=== PATIENT | male | born 1945 | race Hispanic/Latino ===

== ENCOUNTER 2021-12-16 18:04 | Inpatient (IN) | payer MEDICARE, OTHER ==
[2021-12-17 01:29] LABS: Basophils % (Auto) 0.5 % (0.0-1.8); Eosinophils # (Auto) 0.3 K/mm3 (0.0-0.4); Eosinophils % (Auto) 3.4 % (0.0-4.3); Hematocrit 38.1 % (35.5-45.6); Hemoglobin 12.5 gm/dl (11.8-15.2); Lymphocytes # (Auto) 1.8 K/mm3 (1.2-5.4); Lymphocytes % (Auto) 20.3 % (13.4-35.0); Mean Corpuscular HGB Conc 33 % (32-34); Mean Corpuscular Volume 92 fl (84-94); Monocytes % (Auto) 11.3 % (0.0-7.3); Platelet Count 277 K/mm3 (140-440); Red Blood Count 4.14 M/mm3 (3.65-5.03); Red Cell Distribution Width 14.4 % (13.2-15.2)
[2021-12-17 01:56] LABS: Hepatitis B Surface Antigen Non-Reactive (Negative); Hepatitis C Virus Antibody Non-Reactive (NonReactive)
[2021-12-17 04:47] LABS: Alanine Aminotransferase 24 units/L (7-56); Albumin 4.3 g/dL (3.9-5); Blood Urea Nitrogen 22 mg/dL (9-20); Calcium 9.8 mg/dL (8.4-10.2); HDL Cholesterol 46 mg/dL (40-59); Hemolysis Index 4; LDL Cholesterol,Direct 53 mg/dL (50-130)
[2021-12-17 04:55] LABS: BUN/Creatinine Ratio 31
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
[2021-12-17] MEDS ORDERED: ACETAMINOPHEN 650 MG PO PRN (11:33)
[2021-12-17] MEDS ORDERED: ALBUTEROL 8.5 GM MDI INHALATION IH PRN (11:33)
[2021-12-17] MEDS ORDERED: NON-FORMULARY EACH (Calcium Carbonate [Calcium] 600 MG Tablet) PO SCH (11:45)
[2021-12-17] MEDS ORDERED: NON-FORMULARY EACH (Budesoni/Formotero 160-4.5(Nf) 10.2 GM Inha) IH SCH (11:45)
[2021-12-17] MEDS ORDERED: TELMISARTAN 80 MG PO SCH (11:45)
[2021-12-17] MEDS ORDERED: NON-FORMULARY EACH (Metformin Hcl [Glucophage] 1,000 MG Tablet) PO SCH (11:45)
[2021-12-17] MEDS ORDERED: FERROUS SULFATE 140 MG PO SCH (11:45)
[2021-12-17] MEDS ORDERED: glipiZIDE 10 MG TAB PO SCH (12:00)
[2021-12-17] MEDS: dilTIAZem CD 120 MG CAP PO SCH (12:37)
[2021-12-17] MEDS: FUROSEMIDE 40 MG TAB PO SCH (12:38)
[2021-12-17] MEDS: FLUoxetine 20 MG CAP PO SCH (12:38)
[2021-12-17] MEDS: glipiZIDE 5 MG TAB PO SCH (12:38)
[2021-12-17] MEDS: METOPROLOL TARTRATE 50 MG TAB PO SCH ×2 (12:38→21:05)
[2021-12-17] MEDS: GABAPENTIN 300 MG CAP PO SCH ×2 (13:49→21:05)
[2021-12-17] MEDS ORDERED: GABAPENTIN 400 MG CAP PO SCH (14:00)
[2021-12-17] MEDS ORDERED: SODIUM POLYSTYRENE 15 GM/60 ML ORAL LIQD PO NR (14:03)
[2021-12-17] MEDS ORDERED: ALBUTEROL 2.5 MG/3 ML NEBU IH PRN (16:00)
[2021-12-17] MEDS ORDERED: IPRATROPIUM 0.02% NEBU 2.5 ML IH SCH (16:00)
[2021-12-17] MEDS: SUCRALFATE 1 GM TAB PO SCH ×2 (16:57→21:05)
[2021-12-17] MEDS: metFORMIN 500 MG TAB PO SCH (16:58)
[2021-12-17] MEDS: RIVAROXABAN 20 MG TAB PO SCH (16:58)
[2021-12-17] MEDS: PANTOPRAZOLE 40 MG TAB PO SCH (16:58)
[2021-12-17] MEDS: CALCIUM CARBONATE 648 MG TAB PO SCH (16:58)
[2021-12-17] MEDS: FERROUS SULFATE 325 MG TAB PO SCH (16:58)
[2021-12-17] MEDS ORDERED: ALBUTEROL 2.5 MG/3 ML NEBU IH SCH (20:00)
[2021-12-17] MEDS ORDERED: LOXAPINE SUCCINATE 10 MG PO SCH (22:00)
[2021-12-18] MEDS: GABAPENTIN 300 MG CAP PO SCH ×3 (05:47→21:20)
[2021-12-18] MEDS: LEVOTHYROXINE 112 MCG TAB PO SCH (05:47)
[2021-12-18] MEDS: LEVOTHYROXINE 25 MCG TAB PO SCH (05:47)
[2021-12-18] MEDS: PANTOPRAZOLE 40 MG TAB PO SCH (09:11)
[2021-12-18] MEDS: FLUoxetine 20 MG CAP PO SCH (09:12)
[2021-12-18] MEDS: glipiZIDE 5 MG TAB PO SCH (09:12)
[2021-12-18] MEDS: CYANOCOBALAMIN (VIT B-12) 1000 MCG TAB PO SCH (09:12)
[2021-12-18] MEDS: METOPROLOL TARTRATE 50 MG TAB PO SCH ×2 (09:12→21:20)
[2021-12-18] MEDS: CETIRIZINE 10 MG TAB PO SCH (09:13)
[2021-12-18] MEDS: CALCIUM CARBONATE 648 MG TAB PO SCH (09:13)
[2021-12-18] MEDS: CHOLECALCIFEROL (VIT D3) 400 UNIT TAB PO SCH (09:13)
[2021-12-18] MEDS: metFORMIN 500 MG TAB PO SCH ×2 (09:13→17:05)
[2021-12-18] MEDS: SUCRALFATE 1 GM TAB PO SCH ×4 (09:13→21:20)
[2021-12-18] MEDS: FUROSEMIDE 40 MG TAB PO SCH (09:13)
[2021-12-18] MEDS: MULTIVITAMINS,THER W-MINERALS TAB PO SCH (09:13)
[2021-12-18] MEDS: FERROUS SULFATE 325 MG TAB PO SCH (09:13)
[2021-12-18] MEDS: dilTIAZem CD 120 MG CAP PO SCH (09:13)
[2021-12-18] MEDS: B COMPLEX W/VITAMIN C TAB PO SCH (09:14)
[2021-12-18] MEDS: TELMISARTAN 80 MG PO SCH (09:14)
[2021-12-18] MEDS: FLUTICASONE PROPIONATE NASAL SPRAY 16 GM NS SCH (09:23)
--- NOTE | 2021-12-18 09:40 | Progress Note ---
Subjective Date of service: 12/18/21 Principal diagnosis: MDD Subjective Comment: Per nurses note: Last evening the patient spent in the activity room smiling and interacting with others. His thoughts are disorganized. His speech is hyperverbal. Patient is intrusive and jumps in to care for other patients or tell staff what they need to be doing. Patient needs constant redirection to care for himself and staff will care for other patients. He denies si/hi/ah/vh. Patient's appetite is good and he is medication compliant. The patient was seen today. He is cooperative. He appears anxious and delusional. He is clenching his fists, and states he has to help people here. He is asking to go home. He denies SI/HI or hallucinations. Staff says the patient has been intrusive, and disorganized thoughts at times. REVIEW OF SYSTEMS Constitutional: Negative for weight loss ENT: Negative for stridor Respiratory: Negative for cough or hemoptysis All other systems reviewed and are negative MENTAL STATUS EXAMINATION General Appearance and Behavior: Age appropriate, good hygiene, wearing appropriate clothes, good eye contact, anxious, cooperative Cooperation: Participating/engaged, but Guarded Psychomotor Behavior: Psychomotor normal Mood: okay Affect and affective range: congruent with stated mood Thought Process: Circumstantial Thought Content: Delusions Speech: normal tone and pace, flight of ideas Suicidal Ideation: Denies Homicidal Ideation: Denies Hallucinations: Denies Delusions: Yes Impulse Control: Limited Insight and Judgment: Poor insight and judgment Memory: Limited Attention: attentive Orientation: Alert, oriented Assessment and Plan Delusional disorder Treatment Plan Patient admitted for inpatient psychiatric evaluation, medication adjustment and close monitoring The patient's behavior, mood, sleep and appetite will be closely monitored. Patient enrolled in individual and group therapeutic sessions and encouraged to attend. Patient provided with a safe and structured environment. Patient's physical health needs will be addressed by the Hospitalist. Hospitalist Consulted Labs including CBC, CMP, Lipid profile and Hemoglobin A1C levels ordered for baseline reference Social Assessment will be completed and the Electrician Telephone will work with patient and family to ensure a suitable and safe disposition Medication adjustment will be made as clinically indicated Start Olanzapine 5mg po daily Usual Wellness Restorationist/Preservation: - Start Trazodone 50 mg po QHS & 50 mg po QHS PRN between 10 PM & 2 AM for insomnia - Start Melatonin 5 mg po QHS to promote circadian rhythm The patient agreed on the treatment plan, understood the risk, benefit, alternative treatment, potential consequence of no treatment, and gave informed consent. Estimated days: 7 Post hospital care: primary care provider, psychiatric provider Case staffed with Dr. Burroughs Medications and Allergies Allergies Allergy/AdvReac Type Severity Reaction Status Date / Time azithromycin Allergy Vomiting Verified 12/16/21 23:57 erythromycin base Allergy Vomiting Verified 12/16/21 23:57 Tetracyclines Allergy Vomiting Verified 12/16/21 23:57 Home Medications Medication Instructions Recorded Confirmed Last Taken Type Acetaminophen [Arthritis Pain 650 mg PO Q6HR PRN 01/23/16 12/16/21 Unknown History Relief] Albuterol Sulfate [Ventolin HFA] 2 puff IH Q6HR PRN 01/23/16 12/16/21 Unknown History Budesoni/Formotero 160-4.5(Nf) 2 puff IH BID 01/23/16 12/16/21 Unknown History [Symbicort 160-4.5 (Nf)] Cholecalciferol (Vitamin D3) 400 unit PO DAILY 01/23/16 12/16/21 Unknown History [Vitamin D-3] FLUoxetine [PROzac] 60 mg PO QDAY 01/23/16 12/16/21 Unknown History Fluticasone [Flonase] 1 spray NS QDAY 01/23/16 12/16/21 Unknown History Gabapentin [Neurontin] 300 mg PO Q8HR 01/23/16 12/16/21 Unknown History Levothyroxine [Synthroid] 25 mcg PO QAM 01/23/16 12/16/21 Unknown History Levothyroxine [Synthroid] 112 mcg PO QAM 01/23/16 12/16/21 Unknown History Metformin HCl [Glucophage] 1,000 mg PO BID 01/23/16 12/16/21 Unknown History Metoprolol Tartrate [Lopressor] 100 mg PO BID 01/23/16 12/16/21 Unknown History Pantoprazole [Protonix] 40 mg PO QDAY 01/23/16 12/16/21 Unknown History glipiZIDE [Glucotrol] 5 mg PO QDAY 01/23/16 12/16/21 Unknown History Calcium Carbonate [Calcium] 600 mg PO DAILY 12/16/21 12/16/21 Unknown History Cetirizine HCl [Allergy] 10 mg PO DAILY 12/16/21 12/16/21 Unknown History Cyanocobalamin [Vitamin B-12] 1,000 mcg PO DAILY 12/16/21 12/16/21 Unknown History Ferrous Sulfate [Slow Release Iron] 134 mg PO DAILY 12/16/21 12/16/21 Unknown History Furosemide [Lasix] 40 mg PO DAILY 12/16/21 12/16/21 Unknown History Ipratropium [Atrovent] 0.5 mg IH Q8HRT 12/16/21 12/16/21 Unknown History Loxapine Succinate [Loxapine] 10 mg PO HS 12/16/21 12/16/21 Unknown History Rivaroxaban [Xarelto] 20 mg PO QDAY 12/16/21 12/16/21 Unknown History Sucralfate [Carafate] 1 gm PO ACHS 12/16/21 12/16/21 Unknown History Telmisartan [Micardis] 80 mg PO DAILY 12/16/21 12/16/21 Unknown History Vit A/Vit C/Vit E/Zinc/Copper 1 each PO DAILY 12/16/21 12/16/21 Unknown History [Preservision Areds Tablet] Vitamin B Complex [Balanced B-50] 1 each PO DAILY 12/16/21 12/16/21 Unknown History dilTIAZem CD [Cardizem Cd] 120 mg PO DAILY 12/16/21 12/16/21 Unknown History Active Meds: Active Medications Acetaminophen (Acetaminophen 325 Mg Tab) 650 mg PO Q6HR PRN PRN Reason: Pain, Moderate (4-6) Albuterol (Albuterol 2.5 Mg/3 Ml Nebu) 2.5 mg IH Q4HRT PRN PRN Reason: Shortness Of Breath Arformoterol Tartrate (Arformoterol 15 Mcg/2 Ml Nebu) 15 mcg IH Q12HRT [facility] Budesonide (Budesonide 0.5 Mg/2 Ml Nebu) 1 mg IH Q12HRT [facility] Calcium Carbonate/Glycine (Calcium Carbonate 648 Mg Tab) 648 mg PO DAILY [facility] Last Admin: 12/18/21 09:13 Dose: 648 mg Cetirizine HCl (Cetirizine 10 Mg Tab) 10 mg PO DAILY [facility] Last Admin: 12/18/21 09:13 Dose: 10 mg Cholecalciferol (Cholecalciferol (Vit D3) 400 Unit Tab) 400 unit PO QDAY [facility] Last Admin: 12/18/21 09:13 Dose: 400 unit Cyanocobalamin (Cyanocobalamin (Vit B-12) 1000 Mcg Tab) 1,000 mcg PO DAILY [facility] Last Admin: 12/18/21 09:12 Dose: 1,000 mcg Diltiazem HCl (Diltiazem Cd 120 Mg Cap) 120 mg PO DAILY [facility] Last Admin: 12/18/21 09:13 Dose: 120 mg Ferrous Sulfate (Ferrous Sulfate 325 Mg Tab) 325 mg PO DAILY [facility] Last Admin: 12/18/21 09:13 Dose: 325 mg Fluoxetine HCl (Fluoxetine 20 Mg Cap) 60 mg PO QDAY [facility] Last Admin: 12/18/21 09:12 Dose: 60 mg Fluticasone Propionate (Fluticasone Propionate Nasal [place] 16 Gm) 50 mcg NS QDAY [facility] Last Admin: 12/18/21 09:23 Dose: 50 mcg Furosemide (Furosemide 40 Mg Tab) 40 mg PO DAILY [facility] Last Admin: 12/18/21 09:13 Dose: 40 mg Gabapentin (Gabapentin 300 Mg Cap) 300 mg PO Q8HR [facility] Last Admin: 12/18/21 05:47 Dose: 300 mg Glipizide (Glipizide 5 Mg Tab) 5 mg PO QDDIAB [facility] Last Admin: 12/18/21 09:12 Dose: 5 mg Levothyroxine Sodium (Levothyroxine 25 Mcg Tab) 25 mcg PO 0600 [facility] Last Admin: 12/18/21 05:47 Dose: 25 mcg Levothyroxine Sodium (Levothyroxine 112 Mcg Tab) 112 mcg PO 0600 [facility] Last Admin: 12/18/21 05:47 Dose: 112 mcg Metformin HCl (Metformin 500 Mg Tab) 1,000 mg PO BIDDIAB [facility] Last Admin: 12/18/21 09:13 Dose: 1,000 mg Metoprolol Tartrate (Metoprolol Tartrate 50 Mg Tab) 100 mg PO BID [facility] Last Admin: 12/18/21 09:12 Dose: 100 mg Miscellaneous Medication (Loxapine Succinate [Loxapine]) 10 mg PO [facility] Miscellaneous Medication (Telmisartan [Micardis]) 80 mg PO DAILY [facility] Last Admin: 12/18/21 09:14 Dose: 80 mg Multivitamins/Minerals (Multivitamins,Ther W-Minerals Tab) 1 each PO QDAY [facility] Last Admin: 12/18/21 09:13 Dose: 1 each Pantoprazole Sodium (Pantoprazole 40 Mg Tab) 40 mg PO QDAY [facility] Last Admin: 12/18/21 09:11 Dose: 40 mg Rivaroxaban (Rivaroxaban 20 Mg Tab) 20 mg PO QPMDIAB [facility]; Protocol Last Admin: 12/17/21 16:58 Dose: 20 mg Sucralfate (Sucralfate 1 Gm Tab) 1 gm PO ACHS [facility] Last Admin: 12/18/21 09:13 Dose: 1 gm Vitamin B Complex/Vitamin C (B Complex W/Vitamin C Tab) 1 each PO QDAY [facility] Last Admin: 12/18/21 09:14 Dose: 1 each Results - Results Labs/Vitals: Laboratory Last Values WBC 8.8 K/mm3 (4.5-11.0) 12/17/21 00:54 RBC 4.14 M/mm3 (3.65-5.03) 12/17/21 00:54 Hgb 12.5 gm/dl (11.8-15.2) 12/17/21 00:54 Hct 38.1 % (35.5-45.6) 12/17/21 00:54 MCV 92 fl (84-94) 12/17/21 00:54 MCH 30 pg (28-32) 12/17/21 00:54 MCHC 33 % (32-34) 12/17/21 00:54 RDW 14.4 % (13.2-15.2) 12/17/21 00:54 Plt Count 277 K/mm3 (140-440) 12/17/21 00:54 Lymph % (Auto) 20.3 % (13.4-35.0) 12/17/21 00:54 [place] % (Auto) 11.3 % (0.0-7.3) H 12/17/21 00:54 Eos % (Auto) 3.4 % (0.0-4.3) 12/17/21 00:54 Baso % (Auto) 0.5 % (0.0-1.8) 12/17/21 00:54 Lymph # (Auto) 1.8 K/mm3 (1.2-5.4) 12/17/21 00:54 [place] # (Auto) 1.0 K/mm3 (0.0-0.8) H 12/17/21 00:54 Eos # (Auto) 0.3 K/mm3 (0.0-0.4) 12/17/21 00:54 Baso # (Auto) 0.0 K/mm3 (0.0-0.1) 12/17/21 00:54 Seg Neutrophils % 64.5 % (40.0-70.0) 12/17/21 00:54 Seg Neutrophils # 5.7 K/mm3 (1.8-7.7) 12/17/21 00:54 Sodium 131 mmol/L (137-145) L 12/17/21 00:54 Potassium 5.3 mmol/L (3.6-5.0) H 12/17/21 00:54 Chloride 97.1 mmol/L (98-107) L 12/17/21 00:54 Carbon Dioxide 19 mmol/L (22-30) L 12/17/21 00:54 Anion Gap 20 mmol/L 12/17/21 00:54 BUN 22 mg/dL (9-20) H 12/17/21 00:54 Creatinine 0.7 mg/dL (0.8-1.3) L 12/17/21 00:54 Estimated GFR > 60 ml/min 12/17/21 00:54 BUN/Creatinine Ratio 31 % 12/17/21 00:54 Glucose 112 mg/dL (75-100) H 12/17/21 00:54 POC Glucose 92 mg/dL (70-105) 12/18/21 05:52 Hemoglobin A1c 6.0 % (4-6) 12/17/21 00:54 Calcium 9.8 mg/dL (8.4-10.2) 12/17/21 00:54 Total Bilirubin 0.40 mg/dL (0.1-1.2) 12/17/21 00:54 AST 19 units/L (5-40) 12/17/21 00:54 ALT 24 units/L (7-56) 12/17/21 00:54 Alkaline Phosphatase 127 units/L (35-129) 12/17/21 00:54 Total Protein 6.8 g/dL (6.3-8.2) 12/17/21 00:54 Albumin 4.3 g/dL (3.9-5) 12/17/21 00:54 Albumin/Globulin Ratio 1.7 % 12/17/21 00:54 Triglycerides 59 mg/dL (2-149) 12/17/21 00:54 Cholesterol 106 mg/dL (50-199) 12/17/21 00:54 LDL Cholesterol Direct 53 mg/dL (50-130) 12/17/21 00:54 HDL Cholesterol 46 mg/dL (40-59) 12/17/21 00:54 Cholesterol/HDL Ratio 2.30 % 12/17/21 00:54 TSH 1.010 mlU/mL (0.270-4.200) 12/17/21 00:54 Hep Bs Antigen Non-reactive (Negative) 12/17/21 00:54 Hep B Core IgM Ab Non-reactive (NonReactive) 12/17/21 00:54 Hepatitis C Antibody Non-reactive (NonReactive) 12/17/21 00:54 Last Vital Signs Temp 97.4 F L 12/18/21 07:42 Pulse 79 12/18/21 09:12 Resp 18 12/18/21 07:42 BP 120/74 12/18/21 09:12 Pulse Ox 99 12/18/21 07:42
[2021-12-18] MEDS ORDERED: COPPER PO SCH (10:00)
[2021-12-18] MEDS ORDERED: VITAMIN A PO SCH (10:00)
[2021-12-18] MEDS ORDERED: LOSARTAN 50 MG TAB PO SCH (10:00)
[2021-12-18] MEDS ORDERED: CHOLECALCIFEROL 2000 UNIT PO SCH (10:00)
[2021-12-18] MEDS ORDERED: VITAMIN E PO SCH (10:00)
[2021-12-18] MEDS ORDERED: NON-FORMULARY EACH (Rivaroxaban 20 MG Tablet) PO SCH (10:00)
[2021-12-18] MEDS ORDERED: [UNRECOGNIZED DRUG - OTHER] PO SCH (10:00)
[2021-12-18] MEDS ORDERED: ZINC PO SCH (10:00)
[2021-12-18] MEDS ORDERED: VITAMIN B COMPLEX PO SCH (10:00)
[2021-12-18] MEDS ORDERED: ASCORBIC ACID PO SCH (10:00)
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
[2021-12-18] MEDS ORDERED: diphenhydrAMINE/ZINC ACET 2% CREAM 28.4 GM TP PRN (11:00)
[2021-12-18] MEDS: BUDESONIDE 0.5 MG/2 ML NEBU IH SCH ×2 (11:05→21:11)
[2021-12-18] MEDS: ARFORMOTEROL 15 MCG/2 ML NEBU IH SCH ×2 (11:05→21:12)
[2021-12-18 14:12] LABS: Hemoglobin 13.5 gm/dl (11.8-15.2); Mean Corpuscular HGB Conc 34 % (32-34); Mean Corpuscular Volume 92 fl (84-94); Platelet Count 344 K/mm3 (140-440); Red Blood Count 4.36 M/mm3 (3.65-5.03); Red Cell Distribution Width 14.9 % (13.2-15.2)
[2021-12-18] MEDS: RIVAROXABAN 20 MG TAB PO SCH (17:03)
[2021-12-18] MEDS: traZODone 50 MG TAB PO SCH (22:32)
[2021-12-19] MEDS: GABAPENTIN 300 MG CAP PO SCH ×3 (05:41→21:22)
[2021-12-19] MEDS: LEVOTHYROXINE 112 MCG TAB PO SCH (05:41)
[2021-12-19] MEDS: LEVOTHYROXINE 25 MCG TAB PO SCH (05:41)
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
[2021-12-19] MEDS: SUCRALFATE 1 GM TAB PO SCH ×4 (08:30→21:26)
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
[2021-12-19] MEDS: PANTOPRAZOLE 40 MG TAB PO SCH (09:58)
[2021-12-19] MEDS: MULTIVITAMINS,THER W-MINERALS TAB PO SCH (09:58)
[2021-12-19] MEDS: CETIRIZINE 10 MG TAB PO SCH (09:58)
[2021-12-19] MEDS: CYANOCOBALAMIN (VIT B-12) 1000 MCG TAB PO SCH (09:58)
[2021-12-19] MEDS: metFORMIN 500 MG TAB PO SCH ×2 (09:58→17:45)
[2021-12-19] MEDS: METOPROLOL TARTRATE 50 MG TAB PO SCH ×2 (10:00→21:22)
[2021-12-19] MEDS: CHOLECALCIFEROL (VIT D3) 400 UNIT TAB PO SCH (11:18)
[2021-12-19] MEDS: B COMPLEX W/VITAMIN C TAB PO SCH (11:19)
[2021-12-19] MEDS: dilTIAZem CD 120 MG CAP PO SCH (11:19)
[2021-12-19] MEDS: CALCIUM CARBONATE 648 MG TAB PO SCH (11:19)
[2021-12-19] MEDS: TELMISARTAN 80 MG PO SCH (11:20)
[2021-12-19] MEDS: FLUTICASONE PROPIONATE NASAL SPRAY 16 GM NS SCH (11:21)
[2021-12-19] MEDS: FERROUS SULFATE 325 MG TAB PO SCH (11:26)
[2021-12-19] MEDS: FLUoxetine 20 MG CAP PO SCH (12:04)
[2021-12-19] MEDS: FUROSEMIDE 40 MG TAB PO SCH (12:04)
[2021-12-19 14:08] LABS: BUN/Creatinine Ratio 26; Blood Urea Nitrogen 23 mg/dL (9-20); Calcium 10.5 mg/dL (8.4-10.2); Hemolysis Index 8
[2021-12-19] MEDS: ARFORMOTEROL 15 MCG/2 ML NEBU IH SCH ×2 (14:40→21:20)
[2021-12-19] MEDS: BUDESONIDE 0.5 MG/2 ML NEBU IH SCH ×3 (14:41→21:23)
[2021-12-19] MEDS: RIVAROXABAN 20 MG TAB PO SCH (17:49)
[2021-12-19] MEDS: MELATONIN 5 MG TAB PO PRN ×2 (21:21→21:27)
[2021-12-19] MEDS: traZODone 50 MG TAB PO SCH (21:22)
[2021-12-20] MEDS: GABAPENTIN 300 MG CAP PO SCH ×3 (06:06→21:24)
[2021-12-20] MEDS: LEVOTHYROXINE 112 MCG TAB PO SCH (06:07)
[2021-12-20] MEDS: LEVOTHYROXINE 25 MCG TAB PO SCH (06:07)
[2021-12-20] MEDS: SUCRALFATE 1 GM TAB PO SCH ×4 (08:00→21:24)
[2021-12-20] MEDS: ARFORMOTEROL 15 MCG/2 ML NEBU IH SCH ×2 (09:15→20:00)
[2021-12-20] MEDS: BUDESONIDE 0.5 MG/2 ML NEBU IH SCH ×2 (09:15→20:00)
--- NOTE | 2021-12-20 09:47 | Progress Note ---
Subjective Date of service: 12/20/21 Principal diagnosis: MDD Subjective Comment: 12/20: The patient was seen today. He is pacing,intrusive and hyperverbal. The patient states he is doing well. " I like to help people." he states sleep and appetite is good. He denies any current suicidal/homicidal ideation and denies hallucinations. 12/19: The patient was seen today. He is calm, cooperative and polite. He says he feels great. He denies SI/HI. The patient says he doesn't feel safe in his room, because other patient's are walking in hallway at night. He denies hallucinations. 12/18 The patient was seen today. He is cooperative. He appears anxious and delusional. He is clenching his fists, and states he has to help people here. He is asking to go home. He denies SI/HI or hallucinations. Staff says the patient has been intrusive, and disorganized thoughts at times. REVIEW OF SYSTEMS Constitutional: Negative for weight loss ENT: Negative for stridor Respiratory: Negative for cough or hemoptysis All other systems reviewed and are negative MENTAL STATUS EXAMINATION General Appearance and Behavior: Age appropriate, good hygiene, wearing appropriate clothes, good eye contact, anxious, cooperative Cooperation: Participating/engaged, but Guarded Psychomotor Behavior: Psychomotor normal Mood:fine Affect and affective range: congruent with stated mood Thought Process: Circumstantial Thought Content: Delusions Speech: normal tone and pace, flight of ideas Suicidal Ideation: Denies Homicidal Ideation: Denies Hallucinations: Denies Delusions: Yes Impulse Control: Limited Insight and Judgment: Poor insight and judgment Memory: Limited Attention: attentive Orientation: Alert, oriented Assessment and Plan Delusional disorder Treatment Plan Patient admitted for inpatient psychiatric evaluation, medication adjustment and close monitoring The patient's behavior, mood, sleep and appetite will be closely monitored. Patient enrolled in individual and group therapeutic sessions and encouraged to attend. Patient provided with a safe and structured environment. Patient's physical health needs will be addressed by the Hospitalist. Hospitalist Consulted Labs including CBC, CMP, Lipid profile and Hemoglobin A1C levels ordered for baseline reference Social Assessment will be completed and the Executive Officer will work with patient and family to ensure a suitable and safe disposition Medication adjustment will be made as clinically indicated Continue Olanzapine 5mg po daily Usual Wellness [employer]/Preservation: - Start Trazodone 50 mg po QHS & 50 mg po QHS PRN between 10 PM & 2 AM for insomnia - Start Melatonin 5 mg po QHS to promote circadian rhythm The patient agreed on the treatment plan, understood the risk, benefit, alternative treatment, potential consequence of no treatment, and gave informed consent. Estimated days: 7 Post hospital care: primary care provider, psychiatric provider Case staffed with Dr. Burroughs Medications and Allergies Medications and Allergies Allergies Allergy/AdvReac Type Severity Reaction Status Date / Time azithromycin Allergy Vomiting Verified 12/16/21 23:57 erythromycin base Allergy Vomiting Verified 12/16/21 23:57 Tetracyclines Allergy Vomiting Verified 12/16/21 23:57 Home Medications Medication Instructions Recorded Confirmed Last Taken Type Acetaminophen [Arthritis Pain 650 mg PO Q6HR PRN 01/23/16 12/16/21 Unknown History Relief] Albuterol Sulfate [Ventolin HFA] 2 puff IH Q6HR PRN 01/23/16 12/16/21 Unknown History Budesoni/Formotero 160-4.5(Nf) 2 puff IH BID 01/23/16 12/16/21 Unknown History [Symbicort 160-4.5 (Nf)] Cholecalciferol (Vitamin D3) 400 unit PO DAILY 01/23/16 12/16/21 Unknown History [Vitamin D-3] FLUoxetine [PROzac] 60 mg PO QDAY 01/23/16 12/16/21 Unknown History Fluticasone [Flonase] 1 spray NS QDAY 01/23/16 12/16/21 Unknown History Gabapentin [Neurontin] 300 mg PO Q8HR 01/23/16 12/16/21 Unknown History Levothyroxine [Synthroid] 25 mcg PO QAM 01/23/16 12/16/21 Unknown History Levothyroxine [Synthroid] 112 mcg PO QAM 01/23/16 12/16/21 Unknown History Metformin HCl [Glucophage] 1,000 mg PO BID 01/23/16 12/16/21 Unknown History Metoprolol Tartrate [Lopressor] 100 mg PO BID 01/23/16 12/16/21 Unknown History Pantoprazole [Protonix] 40 mg PO QDAY 01/23/16 12/16/21 Unknown History glipiZIDE [Glucotrol] 5 mg PO QDAY 01/23/16 12/16/21 Unknown History Calcium Carbonate [Calcium] 600 mg PO DAILY 12/16/21 12/16/21 Unknown History Cetirizine HCl [Allergy] 10 mg PO DAILY 12/16/21 12/16/21 Unknown History Cyanocobalamin [Vitamin B-12] 1,000 mcg PO DAILY 12/16/21 12/16/21 Unknown History Ferrous Sulfate [Slow Release Iron] 134 mg PO DAILY 12/16/21 12/16/21 Unknown History Furosemide [Lasix] 40 mg PO DAILY 12/16/21 12/16/21 Unknown History Ipratropium [Atrovent] 0.5 mg IH Q8HRT 12/16/21 12/16/21 Unknown History Loxapine Succinate [Loxapine] 10 mg PO HS 12/16/21 12/16/21 Unknown History Rivaroxaban [Xarelto] 20 mg PO QDAY 12/16/21 12/16/21 Unknown History Sucralfate [Carafate] 1 gm PO ACHS 12/16/21 12/16/21 Unknown History Telmisartan [Micardis] 80 mg PO DAILY 12/16/21 12/16/21 Unknown History Vit A/Vit C/Vit E/Zinc/Copper 1 each PO DAILY 12/16/21 12/16/21 Unknown History [Preservision Areds Tablet] Vitamin B Complex [Balanced B-50] 1 each PO DAILY 12/16/21 12/16/21 Unknown History dilTIAZem CD [Cardizem Cd] 120 mg PO DAILY 12/16/21 12/16/21 Unknown History Active Meds: Active Medications Acetaminophen (Acetaminophen 325 Mg Tab) 650 mg PO Q6HR PRN PRN Reason: Pain, Moderate (4-6) Albuterol (Albuterol 2.5 Mg/3 Ml Nebu) 2.5 mg IH Q4HRT PRN PRN Reason: Shortness Of Breath Arformoterol Tartrate (Arformoterol 15 Mcg/2 Ml Nebu) 15 mcg IH Q12HRT [facility] Last Admin: 12/19/21 21:20 Dose: 15 mcg Budesonide (Budesonide 0.5 Mg/2 Ml Nebu) 1 mg IH Q12HRT [facility] Last Admin: 12/19/21 21:23 Dose: 1 mg Calcium Carbonate/Glycine (Calcium Carbonate 648 Mg Tab) 648 mg PO DAILY [facility] Last Admin: 12/19/21 11:19 Dose: 648 mg Cetirizine HCl (Cetirizine 10 Mg Tab) 10 mg PO DAILY [facility] Last Admin: 12/19/21 09:58 Dose: 10 mg Cholecalciferol (Cholecalciferol (Vit D3) 400 Unit Tab) 400 unit PO QDAY [facility] Last Admin: 12/19/21 11:18 Dose: 400 unit Cyanocobalamin (Cyanocobalamin (Vit B-12) 1000 Mcg Tab) 1,000 mcg PO DAILY [facility] Last Admin: 12/19/21 09:58 Dose: 1,000 mcg Diltiazem HCl (Diltiazem Cd 120 Mg Cap) 120 mg PO DAILY [facility] Last Admin: 12/19/21 11:19 Dose: 120 mg Ferrous Sulfate (Ferrous Sulfate 325 Mg Tab) 325 mg PO DAILY [facility] Last Admin: 12/19/21 11:26 Dose: 325 mg Fluoxetine HCl (Fluoxetine 20 Mg Cap) 60 mg PO QDAY [facility] Last Admin: 12/19/21 12:04 Dose: 60 mg Fluticasone Propionate (Fluticasone Propionate Nasal [place] 16 Gm) 50 mcg NS QDAY [facility] Last Admin: 12/19/21 11:21 Dose: 50 mcg Furosemide (Furosemide 40 Mg Tab) 40 mg PO DAILY [facility] Last Admin: 12/19/21 12:04 Dose: 40 mg Gabapentin (Gabapentin 300 Mg Cap) 300 mg PO Q8HR [facility] Last Admin: 12/20/21 06:06 Dose: 300 mg Glipizide (Glipizide Xl 2.5 Mg Tab) 2.5 mg PO 0800 [facility] Levothyroxine Sodium (Levothyroxine 25 Mcg Tab) 25 mcg PO 0600 [facility] Last Admin: 12/20/21 06:07 Dose: 25 mcg Levothyroxine Sodium (Levothyroxine 112 Mcg Tab) 112 mcg PO 0600 [facility] Last Admin: 12/20/21 06:07 Dose: 112 mcg Melatonin (Melatonin 5 Mg Tab) 5 mg PO QHS PRN PRN Reason: Sleep Last Admin: 12/19/21 21:27 Dose: 5 mg Metformin HCl (Metformin 500 Mg Tab) 1,000 mg PO BIDDIAB [facility] Last Admin: 12/19/21 17:45 Dose: Not Given Metoprolol Tartrate (Metoprolol Tartrate 50 Mg Tab) 100 mg PO BID [facility] Last Admin: 12/19/21 21:22 Dose: Not Given Miscellaneous Medication (Loxapine Succinate [Loxapine]) 10 mg PO HS [facility] Miscellaneous Medication (Telmisartan [Micardis]) 80 mg PO DAILY [facility] Last Admin: 12/19/21 11:20 Dose: 80 mg Multivitamins/Minerals (Multivitamins,Ther W-Minerals Tab) 1 each PO QDAY [facility] Last Admin: 12/19/21 09:58 Dose: 1 each Olanzapine (Olanzapine 5 Mg Tab) 5 mg PO QDAY [facility] Last Admin: 12/19/21 09:58 Dose: 5 mg Pantoprazole Sodium (Pantoprazole 40 Mg Tab) 40 mg PO QDAY [facility] Last Admin: 12/19/21 09:58 Dose: 40 mg Rivaroxaban (Rivaroxaban 20 Mg Tab) 20 mg PO QPMDIAB [facility]; Protocol Last Admin: 12/19/21 17:49 Dose: 20 mg Sucralfate (Sucralfate 1 Gm Tab) 1 gm PO ACHS [facility] Last Admin: 12/19/21 21:26 Dose: 1 gm Trazodone HCl (Trazodone 50 Mg Tab) 50 mg PO QHS [facility] Last Admin: 12/19/21 21:22 Dose: 50 mg Vitamin B Complex/Vitamin C (B Complex W/Vitamin C Tab) 1 each PO QDAY [facility] Last Admin: 12/19/21 11:19 Dose: 1 each Zinc Acetate/Diphenhydramine (Diphenhydramine/Zinc Acet 2% Cream 28.4 Gm) 1 applic TP Q8H PRN PRN Reason: Itching Results - Results Labs/Vitals: Laboratory Last Values WBC 10.0 K/mm3 (4.5-11.0) 12/18/21 13:37 RBC 4.36 M/mm3 (3.65-5.03) 12/18/21 13:37 Hgb 13.5 gm/dl (11.8-15.2) 12/18/21 13:37 Hct 40.0 % (35.5-45.6) 12/18/21 13:37 MCV 92 fl (84-94) 12/18/21 13:37 MCH 31 pg (28-32) 12/18/21 13:37 MCHC 34 % (32-34) 12/18/21 13:37 RDW 14.9 % (13.2-15.2) 12/18/21 13:37 Plt Count 344 K/mm3 (140-440) 12/18/21 13:37 Lymph % (Auto) 20.3 % (13.4-35.0) 12/17/21 00:54 [place] % (Auto) 11.3 % (0.0-7.3) H 12/17/21 00:54 Eos % (Auto) 3.4 % (0.0-4.3) 12/17/21 00:54 Baso % (Auto) 0.5 % (0.0-1.8) 12/17/21 00:54 Lymph # (Auto) 1.8 K/mm3 (1.2-5.4) 12/17/21 00:54 [place] # (Auto) 1.0 K/mm3 (0.0-0.8) H 12/17/21 00:54 Eos # (Auto) 0.3 K/mm3 (0.0-0.4) 12/17/21 00:54 Baso # (Auto) 0.0 K/mm3 (0.0-0.1) 12/17/21 00:54 Seg Neutrophils % 64.5 % (40.0-70.0) 12/17/21 00:54 Seg Neutrophils # 5.7 K/mm3 (1.8-7.7) 12/17/21 00:54 Sodium 134 mmol/L (137-145) L 12/19/21 13:16 Potassium 5.2 mmol/L (3.6-5.0) H 12/19/21 13:16 Chloride 96.6 mmol/L (98-107) L 12/19/21 13:16 Carbon Dioxide 25 mmol/L (22-30) 12/19/21 13:16 Anion Gap 18 mmol/L 12/19/21 13:16 BUN 23 mg/dL (9-20) H 12/19/21 13:16 Creatinine 0.9 mg/dL (0.8-1.3) 12/19/21 13:16 Estimated GFR > 60 ml/min 12/19/21 13:16 BUN/Creatinine Ratio 26 % 12/19/21 13:16 Glucose 99 mg/dL (75-100) 12/19/21 13:16 POC Glucose 128 mg/dL (70-105) H 12/19/21 19:49 Hemoglobin A1c 6.0 % (4-6) 12/17/21 00:54 Calcium 10.5 mg/dL (8.4-10.2) H 12/19/21 13:16 Total Bilirubin 0.40 mg/dL (0.1-1.2) 12/17/21 00:54 AST 19 units/L (5-40) 12/17/21 00:54 ALT 24 units/L (7-56) 12/17/21 00:54 Alkaline Phosphatase 127 units/L (35-129) 12/17/21 00:54 Total Protein 6.8 g/dL (6.3-8.2) 12/17/21 00:54 Albumin 4.3 g/dL (3.9-5) 12/17/21 00:54 Albumin/Globulin Ratio 1.7 % 12/17/21 00:54 Triglycerides 59 mg/dL (2-149) 12/17/21 00:54 Cholesterol 106 mg/dL (50-199) 12/17/21 00:54 LDL Cholesterol Direct 53 mg/dL (50-130) 12/17/21 00:54 HDL Cholesterol 46 mg/dL (40-59) 12/17/21 00:54 Cholesterol/HDL Ratio 2.30 % 12/17/21 00:54 TSH 1.010 mlU/mL (0.270-4.200) 12/17/21 00:54 Hep Bs Antigen Non-reactive (Negative) 12/17/21 00:54 Hep B Core IgM Ab Non-reactive (NonReactive) 12/17/21 00:54 Hepatitis C Antibody Non-reactive (NonReactive) 12/17/21 00:54 Last Vital Signs Temp 98.5 F 12/19/21 19:53 Pulse 50 L 12/19/21 21:22 Resp 18 12/19/21 21:20 BP 109/59 12/19/21 21:22 Pulse Ox 100 12/19/21 19:53
--- NOTE | 2021-12-20 10:47 | Progress Note ---
Assessment and Plan - Patient Problems (1) Vascular dementia with behavioral disturbance Current Visit: Yes Status: Acute Plan to address problem: Verbal prompting, verbal redirection, benzodiazepine therapy as clinically indicated. Supportive care (2) Cerebral atherosclerosis Current Visit: Yes Status: Acute Plan to address problem: Risk factor reduction, antiplatelet therapy as clinically indicated. (3) Atrial fibrillation Current Visit: Yes Status: Acute Qualifiers: Atrial fibrillation type: longstanding persistent Qualified Code(s): I48.11 - Longstanding persistent atrial fibrillation Plan to address problem: Therapeutic anticoagulation, rate controlled, continue medical management. Out patient cardiology follow-up. (4) ELEAZAR (generalized anxiety disorder) Current Visit: Yes Status: Acute Plan to address problem: Benzodiazepine therapy as clinically indicated, continue current care. (5) MDD (major depressive disorder) Current Visit: Yes Status: Acute Qualifiers: Major depression episode severity: unspecified Plan to address problem: Continue medical management, (6) Hypothyroidism Current Visit: Yes Status: Acute Plan to address problem: Continue Synthroid therapy, supportive care. (7) GERD (gastroesophageal reflux disease) Current Visit: Yes Status: Acute Qualifiers: Esophagitis presence: without esophagitis Qualified Code(s): K21.9 - Gastro-esophageal reflux disease without esophagitis Plan to address problem: PPI therapy, bland diet, supportive care. (8) Diabetes Current Visit: Yes Status: Acute Plan to address problem: Consistent carbohydrate diet, oral antihyperglycemic therapy, continue medical management. (9) Diastolic CHF Current Visit: Yes Status: Acute Qualifiers: Heart failure chronicity: chronic Qualified Code(s): I50.32 - Chronic diastolic (congestive) heart failure Plan to address problem: Strict I's/O, monitor daily weight, continue current management. Outpatient cardiology follow-up. No acute exacerbation at this time. (10) Advance care planning Current Visit: Yes Status: Acute Plan to address problem: Disease education conducted, care plan discussed, diagnoses discussed, prognosis discussed, patient is full code. Patient knowledges understanding and agreement with care plan, +30 minutes. History Interval history: 76 YO Male with Vascular Dementia with Behavioral Disturbance, Cerebral Atherosclerosis, Atrial Fib on therapeutic anticoagulation, CHF, DM, Diastolic CHF, Hypothyroidism, HTN, ELEAZAR, MDD admitted to [facility] for psychiatric stabilization. Consult placed by Dr. Mancilla for medical management. Patient seen and evaluated in the recreation room. No reported nursing events. Patient denies pain. Patient remains at baseline level of cognition and function. Hospitalist Physical - Constitutional Vitals: Temp Pulse Resp BP Pulse Ox 98.5 F 88 18 109/59 100 12/19/21 19:53 12/20/21 09:15 12/20/21 09:15 12/19/21 21:22 12/19/21 19:53 General appearance: Present: no acute distress - EENT Eyes: Present: PERRL ENT: hearing decreased - Neck Neck: Present: supple - Respiratory Respiratory effort: normal Respiratory: bilateral: CTA - Cardiovascular Rhythm: irregularly irregular - Extremities Extremities: no ischemia Peripheral Pulses: within normal limits - Abdominal General gastrointestinal: soft, non-tender, non-distended - Integumentary Integumentary: Present: clear, dry - Psychiatric Psychiatric: cooperative - Neurologic Neurologic: CNII-XII intact Results - Labs CBC & Chem 7: 12/18/21 13:37 12/19/21 13:16 Labs: Laboratory Last Values WBC 10.0 K/mm3 (4.5-11.0) 12/18/21 13:37 RBC 4.36 M/mm3 (3.65-5.03) 12/18/21 13:37 Hgb 13.5 gm/dl (11.8-15.2) 12/18/21 13:37 Hct 40.0 % (35.5-45.6) 12/18/21 13:37 MCV 92 fl (84-94) 12/18/21 13:37 MCH 31 pg (28-32) 12/18/21 13:37 MCHC 34 % (32-34) 12/18/21 13:37 RDW 14.9 % (13.2-15.2) 12/18/21 13:37 Plt Count 344 K/mm3 (140-440) 12/18/21 13:37 Lymph % (Auto) 20.3 % (13.4-35.0) 12/17/21 00:54 [place] % (Auto) 11.3 % (0.0-7.3) H 12/17/21 00:54 Eos % (Auto) 3.4 % (0.0-4.3) 12/17/21 00:54 Baso % (Auto) 0.5 % (0.0-1.8) 12/17/21 00:54 Lymph # (Auto) 1.8 K/mm3 (1.2-5.4) 12/17/21 00:54 [place] # (Auto) 1.0 K/mm3 (0.0-0.8) H 12/17/21 00:54 Eos # (Auto) 0.3 K/mm3 (0.0-0.4) 12/17/21 00:54 Baso # (Auto) 0.0 K/mm3 (0.0-0.1) 12/17/21 00:54 Seg Neutrophils % 64.5 % (40.0-70.0) 12/17/21 00:54 Seg Neutrophils # 5.7 K/mm3 (1.8-7.7) 12/17/21 00:54 Sodium 134 mmol/L (137-145) L 12/19/21 13:16 Potassium 5.2 mmol/L (3.6-5.0) H 12/19/21 13:16 Chloride 96.6 mmol/L (98-107) L 12/19/21 13:16 Carbon Dioxide 25 mmol/L (22-30) 12/19/21 13:16 Anion Gap 18 mmol/L 12/19/21 13:16 BUN 23 mg/dL (9-20) H 12/19/21 13:16 Creatinine 0.9 mg/dL (0.8-1.3) 12/19/21 13:16 Estimated GFR > 60 ml/min 12/19/21 13:16 BUN/Creatinine Ratio 26 % 12/19/21 13:16 Glucose 99 mg/dL (75-100) 12/19/21 13:16 POC Glucose 128 mg/dL (70-105) H 12/19/21 19:49 Hemoglobin A1c 6.0 % (4-6) 12/17/21 00:54 Calcium 10.5 mg/dL (8.4-10.2) H 12/19/21 13:16 Total Bilirubin 0.40 mg/dL (0.1-1.2) 12/17/21 00:54 AST 19 units/L (5-40) 12/17/21 00:54 ALT 24 units/L (7-56) 12/17/21 00:54 Alkaline Phosphatase 127 units/L (35-129) 12/17/21 00:54 Total Protein 6.8 g/dL (6.3-8.2) 12/17/21 00:54 Albumin 4.3 g/dL (3.9-5) 12/17/21 00:54 Albumin/Globulin Ratio 1.7 % 12/17/21 00:54 Triglycerides 59 mg/dL (2-149) 12/17/21 00:54 Cholesterol 106 mg/dL (50-199) 12/17/21 00:54 LDL Cholesterol Direct 53 mg/dL (50-130) 12/17/21 00:54 HDL Cholesterol 46 mg/dL (40-59) 12/17/21 00:54 Cholesterol/HDL Ratio 2.30 % 12/17/21 00:54 TSH 1.010 mlU/mL (0.270-4.200) 12/17/21 00:54 Hep Bs Antigen Non-reactive (Negative) 12/17/21 00:54 Hep B Core IgM Ab Non-reactive (NonReactive) 12/17/21 00:54 Hepatitis C Antibody Non-reactive (NonReactive) 12/17/21 00:54 Haro/IV: Voiding Method Toilet Active Medications - Current Medications Current Medications: Generic Name Dose Route Start Last Admin Trade Name Freq PRN Reason Stop Dose Admin Acetaminophen 650 mg 12/17/21 14:00 Acetaminophen 325 Mg Tab PO Q6HR PRN Pain, Moderate (4-6) Albuterol 2.5 mg 12/17/21 16:00 Albuterol 2.5 Mg/3 Ml Nebu IH Q4HRT PRN Shortness Of Breath Arformoterol Tartrate 15 mcg 12/18/21 08:00 12/20/21 09:15 Arformoterol 15 Mcg/2 Ml Nebu IH 15 mcg Q12HRT JEANNA Administration Budesonide 1 mg 12/18/21 08:00 12/20/21 09:15 Budesonide 0.5 Mg/2 Ml Nebu IH 1 mg Q12HRT JEANNA Administration Calcium Carbonate/Glycine 648 mg 12/17/21 15:00 12/19/21 11:19 Calcium Carbonate 648 Mg Tab PO 648 mg DAILY JEANNA Administration Cetirizine HCl 10 mg 12/18/21 10:00 12/19/21 09:58 Cetirizine 10 Mg Tab PO 10 mg DAILY JEANNA Administration Cholecalciferol 400 unit 12/18/21 10:00 12/19/21 11:18 Cholecalciferol (Vit D3) 400 Unit Tab PO 400 unit QDAY JEANNA Administration Cyanocobalamin 1,000 mcg 12/18/21 10:00 12/19/21 09:58 Cyanocobalamin (Vit B-12) 1000 Mcg Tab PO 1,000 mcg DAILY JEANNA Administration Diltiazem HCl 120 mg 12/17/21 12:00 12/19/21 11:19 Diltiazem Cd 120 Mg Cap PO 120 mg DAILY JEANNA Administration Divalproex Sodium 125 mg 12/20/21 11:[address] 125 Mg Tab PO BID JEANNA Ferrous Sulfate 325 mg 12/17/21 15:00 12/19/21 11:26 Ferrous Sulfate 325 Mg Tab PO 325 mg DAILY JEANNA Administration Fluoxetine HCl 60 mg 12/17/21 12:00 12/19/21 12:04 Fluoxetine 20 Mg Cap PO 60 mg QDAY JEANNA Administration Fluticasone Propionate 50 mcg 12/18/21 10:00 12/19/21 11:21 Fluticasone Propionate Nasal [place] 16 Gm NS 50 mcg QDAY JEANNA Administration Furosemide 40 mg 12/17/21 12:00 12/19/21 12:04 Furosemide 40 Mg Tab PO 40 mg DAILY JEANNA Administration Gabapentin 300 mg 12/17/21 14:00 12/20/21 06:06 Gabapentin 300 Mg Cap PO 300 mg Q8HR JEANNA Administration Glipizide 2.5 mg 12/20/21 08:00 Glipizide Xl 2.5 Mg Tab PO 0800 JEANNA Levothyroxine Sodium 25 mcg 12/18/21 06:00 12/20/21 06:07 Levothyroxine 25 Mcg Tab PO 25 mcg 0600 JEANNA Administration Levothyroxine Sodium 112 mcg 12/18/21 06:00 12/20/21 06:07 Levothyroxine 112 Mcg Tab PO 112 mcg 0600 JEANNA Administration Melatonin 5 mg 12/18/21 22:40 12/19/21 21:27 Melatonin 5 Mg Tab PO 5 mg QHS PRN Administration Sleep Metformin HCl 1,000 mg 12/17/21 17:00 12/19/21 17:45 Metformin 500 Mg Tab PO Not Given BIDDIAB [facility] Metoprolol Tartrate 100 mg 12/17/21 12:00 12/19/21 21:22 Metoprolol Tartrate 50 Mg Tab PO Not Given BID JEANNA Miscellaneous Medication 10 mg 12/17/21 22:00 Loxapine Succinate [Loxapine] PO HS JEANNA Miscellaneous Medication 80 mg 12/18/21 10:00 12/19/21 11:20 Telmisartan [Micardis] PO 80 mg DAILY JEANNA Administration Multivitamins/Minerals 1 each 12/18/21 10:00 12/19/21 09:58 Multivitamins,Ther W-Minerals Tab PO 1 each QDAY JEANNA Administration Olanzapine 5 mg 12/18/21 11:00 12/19/21 09:58 Olanzapine 5 Mg Tab PO 5 mg QDAY JEANNA Administration Pantoprazole Sodium 40 mg 12/17/21 16:00 12/19/21 09:58 Pantoprazole 40 Mg Tab PO 40 mg QDAY JEANNA Administration Rivaroxaban 20 mg 12/17/21 17:00 12/19/21 17:49 Rivaroxaban 20 Mg Tab PO 20 mg QPMDIAB JEANNA Administration Protocol Sucralfate 1 gm 12/17/21 16:30 12/19/21 21:26 Sucralfate 1 Gm Tab PO 1 gm ACHS JEANNA Administration Trazodone HCl 50 mg 12/18/21 22:30 12/19/21 21:22 Trazodone 50 Mg Tab PO 50 mg QHS JEANNA Administration Vitamin B Complex/Vitamin C 1 each 12/18/21 10:00 12/19/21 11:19 B Complex W/Vitamin C Tab PO 1 each QDAY JEANNA Administration Zinc Acetate/Diphenhydramine 1 applic 12/18/21 11:00 Diphenhydramine/Zinc Acet 2% Cream 28.4 Gm TP Q8H PRN Itching
[2021-12-20] MEDS: CETIRIZINE 10 MG TAB PO SCH (12:37)
[2021-12-20] MEDS: PANTOPRAZOLE 40 MG TAB PO SCH (12:37)
[2021-12-20] MEDS: CYANOCOBALAMIN (VIT B-12) 1000 MCG TAB PO SCH (12:38)
[2021-12-20] MEDS: FERROUS SULFATE 325 MG TAB PO SCH (12:38)
[2021-12-20] MEDS: FLUoxetine 20 MG CAP PO SCH (12:38)
[2021-12-20] MEDS: B COMPLEX W/VITAMIN C TAB PO SCH (12:39)
[2021-12-20] MEDS: FUROSEMIDE 40 MG TAB PO SCH (12:39)
[2021-12-20] MEDS: CALCIUM CARBONATE 648 MG TAB PO SCH (12:39)
[2021-12-20] MEDS: CHOLECALCIFEROL (VIT D3) 400 UNIT TAB PO SCH (12:39)
[2021-12-20] MEDS: TELMISARTAN 80 MG PO SCH (12:40)
[2021-12-20] MEDS: FLUTICASONE PROPIONATE NASAL SPRAY 16 GM NS SCH (12:40)
[2021-12-20] MEDS: dilTIAZem CD 120 MG CAP PO SCH (12:41)
[2021-12-20] MEDS: metFORMIN 500 MG TAB PO SCH ×2 (12:45→16:40)
[2021-12-20] MEDS: METOPROLOL TARTRATE 50 MG TAB PO SCH ×2 (12:46→21:26)
[2021-12-20] MEDS: MULTIVITAMINS,THER W-MINERALS TAB PO SCH (12:52)
[2021-12-20] MEDS: DIVALPROEX DR 125 MG TAB PO SCH ×2 (13:18→21:24)
[2021-12-20] MEDS: RIVAROXABAN 20 MG TAB PO SCH (19:00)
[2021-12-20] MEDS: MELATONIN 5 MG TAB PO PRN (20:44)
[2021-12-20] MEDS: traZODone 50 MG TAB PO SCH (21:24)
[2021-12-21] MEDS: LEVOTHYROXINE 25 MCG TAB PO SCH (05:45)
[2021-12-21] MEDS: LEVOTHYROXINE 112 MCG TAB PO SCH (05:45)
[2021-12-21] MEDS: GABAPENTIN 300 MG CAP PO SCH ×3 (05:45→21:15)
[2021-12-21] MEDS: BUDESONIDE 0.5 MG/2 ML NEBU IH SCH ×2 (07:39→20:14)
[2021-12-21] MEDS: ARFORMOTEROL 15 MCG/2 ML NEBU IH SCH ×2 (07:39→20:14)
[2021-12-21] MEDS: PANTOPRAZOLE 40 MG TAB PO SCH (09:02)
[2021-12-21] MEDS: CYANOCOBALAMIN (VIT B-12) 1000 MCG TAB PO SCH (09:02)
[2021-12-21] MEDS: B COMPLEX W/VITAMIN C TAB PO SCH (09:02)
[2021-12-21] MEDS: CALCIUM CARBONATE 648 MG TAB PO SCH (09:02)
[2021-12-21] MEDS: MULTIVITAMINS,THER W-MINERALS TAB PO SCH (09:02)
[2021-12-21] MEDS: FLUoxetine 20 MG CAP PO SCH (09:02)
[2021-12-21] MEDS: FUROSEMIDE 40 MG TAB PO SCH (09:03)
[2021-12-21] MEDS: SUCRALFATE 1 GM TAB PO SCH ×4 (09:03→21:15)
[2021-12-21] MEDS: DIVALPROEX DR 125 MG TAB PO SCH (09:03)
[2021-12-21] MEDS: CHOLECALCIFEROL (VIT D3) 400 UNIT TAB PO SCH (09:03)
[2021-12-21] MEDS: CETIRIZINE 10 MG TAB PO SCH (09:03)
[2021-12-21] MEDS: FERROUS SULFATE 325 MG TAB PO SCH (09:03)
[2021-12-21] MEDS: metFORMIN 500 MG TAB PO SCH ×2 (09:04→16:56)
[2021-12-21] MEDS: METOPROLOL TARTRATE 50 MG TAB PO SCH ×2 (09:04→21:16)
[2021-12-21] MEDS: FLUTICASONE PROPIONATE NASAL SPRAY 16 GM NS SCH (09:05)
[2021-12-21] MEDS: dilTIAZem CD 120 MG CAP PO SCH (09:05)
[2021-12-21] MEDS: TELMISARTAN 80 MG PO SCH (09:05)
--- NOTE | 2021-12-21 09:10 | Progress Note ---
Subjective Date of service: 12/21/21 Principal diagnosis: MDD Subjective Comment: 12/21: The patient was seen today. he continues to be talkative and grandiose. He denies being depressed. The patient denies any current suicidal/homicidal ideation and denies hallucinations. Increased Depakote DR to 250mg po BID 12/20: The patient was seen today. He is pacing,intrusive and hyperverbal. The patient states he is doing well. " I like to help people." he states sleep and appetite is good. He denies any current suicidal/homicidal ideation and denies hallucinations. 12/19: The patient was seen today. He is calm, cooperative and polite. He says he feels great. He denies SI/HI. The patient says he doesn't feel safe in his room, because other patient's are walking in hallway at night. He denies hallucinations. 12/18 The patient was seen today. He is cooperative. He appears anxious and delusional. He is clenching his fists, and states he has to help people here. He is asking to go home. He denies SI/HI or hallucinations. Staff says the patient has been intrusive, and disorganized thoughts at times. REVIEW OF SYSTEMS Constitutional: Negative for weight loss ENT: Negative for stridor Respiratory: Negative for cough or hemoptysis All other systems reviewed and are negative MENTAL STATUS EXAMINATION General Appearance and Behavior: Age appropriate, good hygiene, wearing appropriate clothes, good eye contact, anxious, cooperative Cooperation: Participating/engaged, but Guarded Psychomotor Behavior: Psychomotor normal Mood:fine Affect and affective range: congruent with stated mood Thought Process: Circumstantial,grandiose Thought Content: Delusions Speech: normal tone and pace, flight of ideas, Suicidal Ideation: Denies Homicidal Ideation: Denies Hallucinations: Denies Delusions: Yes Impulse Control: Limited Insight and Judgment: Poor insight and judgment Memory: Limited Attention: attentive Orientation: Alert, oriented Assessment and Plan Delusional disorder Treatment Plan Patient admitted for inpatient psychiatric evaluation, medication adjustment and close monitoring The patient's behavior, mood, sleep and appetite will be closely monitored. Patient enrolled in individual and group therapeutic sessions and encouraged to attend. Patient provided with a safe and structured environment. Patient's physical health needs will be addressed by the Hospitalist. Hospitalist Consulted Labs including CBC, CMP, Lipid profile and Hemoglobin A1C levels ordered for baseline reference Social Assessment will be completed and the Human Resources Representative will work with patient and family to ensure a suitable and safe disposition Medication adjustment will be made as clinically indicated Continue Olanzapine 5mg po daily Usual Wellness Hoahaoism/Preservation: - Start Trazodone 50 mg po QHS & 50 mg po QHS PRN between 10 PM & 2 AM for insomnia - Start Melatonin 5 mg po QHS to promote circadian rhythm The patient agreed on the treatment plan, understood the risk, benefit, alternative treatment, potential consequence of no treatment, and gave informed consent. Estimated days: 7 Post hospital care: primary care provider, psychiatric provider Case staffed with Dr. Burroughs Medications and Allergies Medications and Allergies Allergies Allergy/AdvReac Type Severity Reaction Status Date / Time azithromycin Allergy Vomiting Verified 12/16/21 23:57 erythromycin base Allergy Vomiting Verified 12/16/21 23:57 Tetracyclines Allergy Vomiting Verified 12/16/21 23:57 Home Medications Medication Instructions Recorded Confirmed Last Taken Type Acetaminophen [Arthritis Pain 650 mg PO Q6HR PRN 01/23/16 12/16/21 Unknown History Relief] Albuterol Sulfate [Ventolin HFA] 2 puff IH Q6HR PRN 01/23/16 12/16/21 Unknown History Budesoni/Formotero 160-4.5(Nf) 2 puff IH BID 01/23/16 12/16/21 Unknown History [Symbicort 160-4.5 (Nf)] Cholecalciferol (Vitamin D3) 400 unit PO DAILY 01/23/16 12/16/21 Unknown History [Vitamin D-3] FLUoxetine [PROzac] 60 mg PO QDAY 01/23/16 12/16/21 Unknown History Fluticasone [Flonase] 1 spray NS QDAY 01/23/16 12/16/21 Unknown History Gabapentin [Neurontin] 300 mg PO Q8HR 01/23/16 12/16/21 Unknown History Levothyroxine [Synthroid] 25 mcg PO QAM 01/23/16 12/16/21 Unknown History Levothyroxine [Synthroid] 112 mcg PO QAM 01/23/16 12/16/21 Unknown History Metformin HCl [Glucophage] 1,000 mg PO BID 01/23/16 12/16/21 Unknown History Metoprolol Tartrate [Lopressor] 100 mg PO BID 01/23/16 12/16/21 Unknown History Pantoprazole [Protonix] 40 mg PO QDAY 01/23/16 12/16/21 Unknown History glipiZIDE [Glucotrol] 5 mg PO QDAY 01/23/16 12/16/21 Unknown History Calcium Carbonate [Calcium] 600 mg PO DAILY 12/16/21 12/16/21 Unknown History Cetirizine HCl [Allergy] 10 mg PO DAILY 12/16/21 12/16/21 Unknown History Cyanocobalamin [Vitamin B-12] 1,000 mcg PO DAILY 12/16/21 12/16/21 Unknown History Ferrous Sulfate [Slow Release Iron] 134 mg PO DAILY 12/16/21 12/16/21 Unknown History Furosemide [Lasix] 40 mg PO DAILY 12/16/21 12/16/21 Unknown History Ipratropium [Atrovent] 0.5 mg IH Q8HRT 12/16/21 12/16/21 Unknown History Loxapine Succinate [Loxapine] 10 mg PO HS 12/16/21 12/16/21 Unknown History Rivaroxaban [Xarelto] 20 mg PO QDAY 12/16/21 12/16/21 Unknown History Sucralfate [Carafate] 1 gm PO ACHS 12/16/21 12/16/21 Unknown History Telmisartan [Micardis] 80 mg PO DAILY 12/16/21 12/16/21 Unknown History Vit A/Vit C/Vit E/Zinc/Copper 1 each PO DAILY 12/16/21 12/16/21 Unknown History [Preservision Areds Tablet] Vitamin B Complex [Balanced B-50] 1 each PO DAILY 12/16/21 12/16/21 Unknown History dilTIAZem CD [Cardizem Cd] 120 mg PO DAILY 12/16/21 12/16/21 Unknown History Active Meds: Active Medications Acetaminophen (Acetaminophen 325 Mg Tab) 650 mg PO Q6HR PRN PRN Reason: Pain, Moderate (4-6) Albuterol (Albuterol 2.5 Mg/3 Ml Nebu) 2.5 mg IH Q4HRT PRN PRN Reason: Shortness Of Breath Arformoterol Tartrate (Arformoterol 15 Mcg/2 Ml Nebu) 15 mcg IH Q12HRT JEANNA Last Admin: 12/21/21 07:39 Dose: Not Given Budesonide (Budesonide 0.5 Mg/2 Ml Nebu) 1 mg IH Q12HRT [facility] Last Admin: 12/21/21 07:39 Dose: 1 mg Calcium Carbonate/Glycine (Calcium Carbonate 648 Mg Tab) 648 mg PO DAILY [facility] Last Admin: 12/20/21 12:39 Dose: 648 mg Cetirizine HCl (Cetirizine 10 Mg Tab) 10 mg PO DAILY [facility] Last Admin: 12/20/21 12:37 Dose: 10 mg Cholecalciferol (Cholecalciferol (Vit D3) 400 Unit Tab) 400 unit PO QDAY [facility] Last Admin: 12/20/21 12:39 Dose: 400 unit Cyanocobalamin (Cyanocobalamin (Vit B-12) 1000 Mcg Tab) 1,000 mcg PO DAILY [facility] Last Admin: 12/20/21 12:38 Dose: 1,000 mcg Diltiazem HCl (Diltiazem Cd 120 Mg Cap) 120 mg PO DAILY [facility] Last Admin: 12/20/21 12:41 Dose: Not Given Divalproex Sodium (Divalproex Dr 125 Mg Tab) 125 mg PO BID [facility] Last Admin: 12/20/21 21:24 Dose: 125 mg Ferrous Sulfate (Ferrous Sulfate 325 Mg Tab) 325 mg PO DAILY [facility] Last Admin: 12/20/21 12:38 Dose: 325 mg Fluoxetine HCl (Fluoxetine 20 Mg Cap) 60 mg PO QDAY [facility] Last Admin: 12/20/21 12:38 Dose: 60 mg Fluticasone Propionate (Fluticasone Propionate Nasal [place] 16 Gm) 50 mcg NS QDAY [facility] Last Admin: 12/20/21 12:40 Dose: 50 mcg Furosemide (Furosemide 40 Mg Tab) 40 mg PO DAILY [facility] Last Admin: 12/20/21 12:39 Dose: 40 mg Gabapentin (Gabapentin 300 Mg Cap) 300 mg PO Q8HR [facility] Last Admin: 12/21/21 05:45 Dose: 300 mg Glipizide (Glipizide Xl 2.5 Mg Tab) 2.5 mg PO 0800 [facility] Last Admin: 12/20/21 12:44 Dose: Not Given Levothyroxine Sodium (Levothyroxine 25 Mcg Tab) 25 mcg PO 0600 [facility] Last Admin: 12/21/21 05:45 Dose: 25 mcg Levothyroxine Sodium (Levothyroxine 112 Mcg Tab) 112 mcg PO 0600 [facility] Last Admin: 12/21/21 05:45 Dose: 112 mcg Melatonin (Melatonin 5 Mg Tab) 5 mg PO QHS PRN PRN Reason: Sleep Last Admin: 12/20/21 20:44 Dose: 5 mg Metformin HCl (Metformin 500 Mg Tab) 1,000 mg PO BIDDIAB [facility] Last Admin: 12/20/21 16:40 Dose: Not Given Metoprolol Tartrate (Metoprolol Tartrate 50 Mg Tab) 100 mg PO BID [facility] Last Admin: 12/20/21 21:26 Dose: Not Given Miscellaneous Medication (Loxapine Succinate [Loxapine]) 10 mg PO [facility] Miscellaneous Medication (Telmisartan [Micardis]) 80 mg PO DAILY [facility] Last Admin: 12/20/21 12:40 Dose: 80 mg Multivitamins/Minerals (Multivitamins,Ther W-Minerals Tab) 1 each PO QDAY [facility] Last Admin: 12/20/21 12:52 Dose: 1 each Olanzapine (Olanzapine 5 Mg Tab) 5 mg PO QDAY [facility] Last Admin: 12/20/21 12:37 Dose: 5 mg Pantoprazole Sodium (Pantoprazole 40 Mg Tab) 40 mg PO QDAY [facility] Last Admin: 12/20/21 12:37 Dose: 40 mg Rivaroxaban (Rivaroxaban 20 Mg Tab) 20 mg PO QPMDIAB [facility]; Protocol Last Admin: 12/20/21 19:00 Dose: 20 mg Sucralfate (Sucralfate 1 Gm Tab) 1 gm PO [facility] Last Admin: 12/20/21 21:24 Dose: 1 gm Trazodone HCl (Trazodone 50 Mg Tab) 50 mg PO QHS [facility] Last Admin: 12/20/21 21:24 Dose: 50 mg Vitamin B Complex/Vitamin C (B Complex W/Vitamin C Tab) 1 each PO QDAY [facility] Last Admin: 12/20/21 12:39 Dose: 1 each Zinc Acetate/Diphenhydramine (Diphenhydramine/Zinc Acet 2% Cream 28.4 Gm) 1 applic TP Q8H PRN PRN Reason: Itching Results - Results Labs/Vitals: Laboratory Last Values WBC 10.0 K/mm3 (4.5-11.0) 12/18/21 13:37 RBC 4.36 M/mm3 (3.65-5.03) 12/18/21 13:37 Hgb 13.5 gm/dl (11.8-15.2) 12/18/21 13:37 Hct 40.0 % (35.5-45.6) 12/18/21 13:37 MCV 92 fl (84-94) 12/18/21 13:37 MCH 31 pg (28-32) 12/18/21 13:37 MCHC 34 % (32-34) 12/18/21 13:37 RDW 14.9 % (13.2-15.2) 12/18/21 13:37 Plt Count 344 K/mm3 (140-440) 12/18/21 13:37 Lymph % (Auto) 20.3 % (13.4-35.0) 12/17/21 00:54 [place] % (Auto) 11.3 % (0.0-7.3) H 12/17/21 00:54 Eos % (Auto) 3.4 % (0.0-4.3) 12/17/21 00:54 Baso % (Auto) 0.5 % (0.0-1.8) 12/17/21 00:54 Lymph # (Auto) 1.8 K/mm3 (1.2-5.4) 12/17/21 00:54 [place] # (Auto) 1.0 K/mm3 (0.0-0.8) H 12/17/21 00:54 Eos # (Auto) 0.3 K/mm3 (0.0-0.4) 12/17/21 00:54 Baso # (Auto) 0.0 K/mm3 (0.0-0.1) 12/17/21 00:54 Seg Neutrophils % 64.5 % (40.0-70.0) 12/17/21 00:54 Seg Neutrophils # 5.7 K/mm3 (1.8-7.7) 12/17/21 00:54 Sodium 134 mmol/L (137-145) L 12/19/21 13:16 Potassium 5.2 mmol/L (3.6-5.0) H 12/19/21 13:16 Chloride 96.6 mmol/L (98-107) L 12/19/21 13:16 Carbon Dioxide 25 mmol/L (22-30) 12/19/21 13:16 Anion Gap 18 mmol/L 12/19/21 13:16 BUN 23 mg/dL (9-20) H 12/19/21 13:16 Creatinine 0.9 mg/dL (0.8-1.3) 12/19/21 13:16 Estimated GFR > 60 ml/min 12/19/21 13:16 BUN/Creatinine Ratio 26 % 12/19/21 13:16 Glucose 99 mg/dL (75-100) 12/19/21 13:16 POC Glucose 128 mg/dL (70-105) H 12/20/21 19:57 Hemoglobin A1c 6.0 % (4-6) 12/17/21 00:54 Calcium 10.5 mg/dL (8.4-10.2) H 12/19/21 13:16 Total Bilirubin 0.40 mg/dL (0.1-1.2) 12/17/21 00:54 AST 19 units/L (5-40) 12/17/21 00:54 ALT 24 units/L (7-56) 12/17/21 00:54 Alkaline Phosphatase 127 units/L (35-129) 12/17/21 00:54 Total Protein 6.8 g/dL (6.3-8.2) 12/17/21 00:54 Albumin 4.3 g/dL (3.9-5) 12/17/21 00:54 Albumin/Globulin Ratio 1.7 % 12/17/21 00:54 Triglycerides 59 mg/dL (2-149) 12/17/21 00:54 Cholesterol 106 mg/dL (50-199) 12/17/21 00:54 LDL Cholesterol Direct 53 mg/dL (50-130) 12/17/21 00:54 HDL Cholesterol 46 mg/dL (40-59) 12/17/21 00:54 Cholesterol/HDL Ratio 2.30 % 12/17/21 00:54 TSH 1.010 mlU/mL (0.270-4.200) 12/17/21 00:54 Hep Bs Antigen Non-reactive (Negative) 12/17/21 00:54 Hep B Core IgM Ab Non-reactive (NonReactive) 12/17/21 00:54 Hepatitis C Antibody Non-reactive (NonReactive) 12/17/21 00:54 Last Vital Signs Temp 97.9 F 12/21/21 06:57 Pulse 78 12/21/21 06:57 Resp 18 12/21/21 07:39 BP 141/72 12/21/21 06:57 Pulse Ox 96 12/21/21 07:39
--- NOTE | 2021-12-21 11:37 | Progress Note ---
Assessment and Plan - Patient Problems (1) Vascular dementia with behavioral disturbance Current Visit: Yes Status: Acute Plan to address problem: Verbal prompting, verbal redirection, benzodiazepine therapy as clinically indicated. Supportive care (2) Cerebral atherosclerosis Current Visit: Yes Status: Acute Plan to address problem: Risk factor reduction, antiplatelet therapy as clinically indicated. (3) Atrial fibrillation Current Visit: Yes Status: Acute Qualifiers: Atrial fibrillation type: longstanding persistent Qualified Code(s): I48.11 - Longstanding persistent atrial fibrillation Plan to address problem: Therapeutic anticoagulation, rate controlled, continue medical management. Out patient cardiology follow-up. (4) ELEAZAR (generalized anxiety disorder) Current Visit: Yes Status: Acute Plan to address problem: Benzodiazepine therapy as clinically indicated, continue current care. (5) MDD (major depressive disorder) Current Visit: Yes Status: Acute Qualifiers: Major depression episode severity: unspecified Plan to address problem: Continue medical management, (6) Hypothyroidism Current Visit: Yes Status: Acute Plan to address problem: Continue Synthroid therapy, supportive care. (7) GERD (gastroesophageal reflux disease) Current Visit: Yes Status: Acute Qualifiers: Esophagitis presence: without esophagitis Qualified Code(s): K21.9 - Gastro-esophageal reflux disease without esophagitis Plan to address problem: PPI therapy, bland diet, supportive care. (8) Diabetes Current Visit: Yes Status: Acute Plan to address problem: Consistent carbohydrate diet, oral antihyperglycemic therapy, continue medical management. (9) Diastolic CHF Current Visit: Yes Status: Acute Qualifiers: Heart failure chronicity: chronic Qualified Code(s): I50.32 - Chronic diastolic (congestive) heart failure Plan to address problem: Strict I's/O, monitor daily weight, continue current management. Outpatient cardiology follow-up. No acute exacerbation at this time. (10) Advance care planning Current Visit: Yes Status: Acute Plan to address problem: Disease education conducted, care plan discussed, diagnoses discussed, prognosis discussed, patient is full code. Patient knowledges understanding and agreement with care plan, +30 minutes. History Interval history: 76 YO Male with Vascular Dementia with Behavioral Disturbance, Cerebral Atherosclerosis, Atrial Fib on therapeutic anticoagulation, CHF, DM, Diastolic CHF, Hypothyroidism, HTN, ELEAZAR, MDD admitted to [facility] for psychiatric stabilization. Consult placed by Dr. Mancilla for medical management. Patient seen and evaluated in the recreation room. No reported nursing events. Patient denies pain. Patient remains at baseline level of cognition and function. Hospitalist Physical - Constitutional Vitals: Temp Pulse Resp BP Pulse Ox 97.9 F 78 18 141/72 96 12/21/21 06:57 12/21/21 09:05 12/21/21 07:39 12/21/21 09:05 12/21/21 07:39 General appearance: Present: no acute distress - EENT Eyes: Present: PERRL ENT: hearing decreased - Neck Neck: Present: supple - Respiratory Respiratory effort: normal Respiratory: bilateral: diminished - Cardiovascular Rhythm: irregularly irregular - Extremities Extremities: no ischemia Peripheral Pulses: within normal limits - Abdominal General gastrointestinal: soft, non-tender, non-distended - Integumentary Integumentary: Present: clear, dry - Psychiatric Psychiatric: cooperative - Neurologic Neurologic: CNII-XII intact Results - Labs CBC & Chem 7: 12/18/21 13:37 12/19/21 13:16 Labs: Laboratory Last Values WBC 10.0 K/mm3 (4.5-11.0) 12/18/21 13:37 RBC 4.36 M/mm3 (3.65-5.03) 12/18/21 13:37 Hgb 13.5 gm/dl (11.8-15.2) 12/18/21 13:37 Hct 40.0 % (35.5-45.6) 12/18/21 13:37 MCV 92 fl (84-94) 12/18/21 13:37 MCH 31 pg (28-32) 12/18/21 13:37 MCHC 34 % (32-34) 12/18/21 13:37 RDW 14.9 % (13.2-15.2) 12/18/21 13:37 Plt Count 344 K/mm3 (140-440) 12/18/21 13:37 Lymph % (Auto) 20.3 % (13.4-35.0) 12/17/21 00:54 [place] % (Auto) 11.3 % (0.0-7.3) H 12/17/21 00:54 Eos % (Auto) 3.4 % (0.0-4.3) 12/17/21 00:54 Baso % (Auto) 0.5 % (0.0-1.8) 12/17/21 00:54 Lymph # (Auto) 1.8 K/mm3 (1.2-5.4) 12/17/21 00:54 [place] # (Auto) 1.0 K/mm3 (0.0-0.8) H 12/17/21 00:54 Eos # (Auto) 0.3 K/mm3 (0.0-0.4) 12/17/21 00:54 Baso # (Auto) 0.0 K/mm3 (0.0-0.1) 12/17/21 00:54 Seg Neutrophils % 64.5 % (40.0-70.0) 12/17/21 00:54 Seg Neutrophils # 5.7 K/mm3 (1.8-7.7) 12/17/21 00:54 Sodium 134 mmol/L (137-145) L 12/19/21 13:16 Potassium 5.2 mmol/L (3.6-5.0) H 12/19/21 13:16 Chloride 96.6 mmol/L (98-107) L 12/19/21 13:16 Carbon Dioxide 25 mmol/L (22-30) 12/19/21 13:16 Anion Gap 18 mmol/L 12/19/21 13:16 BUN 23 mg/dL (9-20) H 12/19/21 13:16 Creatinine 0.9 mg/dL (0.8-1.3) 12/19/21 13:16 Estimated GFR > 60 ml/min 12/19/21 13:16 BUN/Creatinine Ratio 26 % 12/19/21 13:16 Glucose 99 mg/dL (75-100) 12/19/21 13:16 POC Glucose 128 mg/dL (70-105) H 12/20/21 19:57 Hemoglobin A1c 6.0 % (4-6) 12/17/21 00:54 Calcium 10.5 mg/dL (8.4-10.2) H 12/19/21 13:16 Total Bilirubin 0.40 mg/dL (0.1-1.2) 12/17/21 00:54 AST 19 units/L (5-40) 12/17/21 00:54 ALT 24 units/L (7-56) 12/17/21 00:54 Alkaline Phosphatase 127 units/L (35-129) 12/17/21 00:54 Total Protein 6.8 g/dL (6.3-8.2) 12/17/21 00:54 Albumin 4.3 g/dL (3.9-5) 12/17/21 00:54 Albumin/Globulin Ratio 1.7 % 12/17/21 00:54 Triglycerides 59 mg/dL (2-149) 12/17/21 00:54 Cholesterol 106 mg/dL (50-199) 12/17/21 00:54 LDL Cholesterol Direct 53 mg/dL (50-130) 12/17/21 00:54 HDL Cholesterol 46 mg/dL (40-59) 12/17/21 00:54 Cholesterol/HDL Ratio 2.30 % 12/17/21 00:54 TSH 1.010 mlU/mL (0.270-4.200) 12/17/21 00:54 Hep Bs Antigen Non-reactive (Negative) 12/17/21 00:54 Hep B Core IgM Ab Non-reactive (NonReactive) 12/17/21 00:54 Hepatitis C Antibody Non-reactive (NonReactive) 12/17/21 00:54 [place]/IV: Voiding Method Toilet Active Medications - Current Medications Current Medications: Generic Name Dose Route Start Last Admin Trade Name Freq PRN Reason Stop Dose Admin Acetaminophen 650 mg 12/17/21 14:00 Acetaminophen 325 Mg Tab PO Q6HR PRN Pain, Moderate (4-6) Albuterol 2.5 mg 12/17/21 16:00 Albuterol 2.5 Mg/3 Ml Nebu IH Q4HRT PRN Shortness Of Breath Arformoterol Tartrate 15 mcg 12/18/21 08:00 12/21/21 07:39 Arformoterol 15 Mcg/2 Ml Nebu IH Not Given Q12HRT JEANNA Budesonide 1 mg 12/18/21 08:00 12/21/21 07:39 Budesonide 0.5 Mg/2 Ml Nebu IH 1 mg Q12HRT JEANNA Administration Calcium Carbonate/Glycine 648 mg 12/17/21 15:00 12/21/21 09:02 Calcium Carbonate 648 Mg Tab PO 648 mg DAILY JEANNA Administration Cetirizine HCl 10 mg 12/18/21 10:00 12/21/21 09:03 Cetirizine 10 Mg Tab PO 10 mg DAILY JEANNA Administration Cholecalciferol 400 unit 12/18/21 10:00 12/21/21 09:03 Cholecalciferol (Vit D3) 400 Unit Tab PO 400 unit QDAY JEANNA Administration Cyanocobalamin 1,000 mcg 12/18/21 10:00 12/21/21 09:02 Cyanocobalamin (Vit B-12) 1000 Mcg Tab PO 1,000 mcg DAILY JEANNA Administration Diltiazem HCl 120 mg 12/17/21 12:00 12/21/21 09:05 Diltiazem Cd 120 Mg Cap PO 120 mg DAILY JEANNA Administration Divalproex Sodium 250 mg 12/22/21 10:[address] 250 Mg Tab PO BID JEANNA Ferrous Sulfate 325 mg 12/17/21 15:00 12/21/21 09:03 Ferrous Sulfate 325 Mg Tab PO 325 mg DAILY JEANNA Administration Fluoxetine HCl 60 mg 12/17/21 12:00 12/21/21 09:02 Fluoxetine 20 Mg Cap PO 60 mg QDAY JEANNA Administration Fluticasone Propionate 50 mcg 12/18/21 10:00 12/21/21 09:05 Fluticasone Propionate Nasal [place] 16 Gm NS 50 mcg QDAY JEANNA Administration Furosemide 40 mg 12/17/21 12:00 12/21/21 09:03 Furosemide 40 Mg Tab PO 40 mg DAILY JEANNA Administration Gabapentin 300 mg 12/17/21 14:00 12/21/21 05:45 Gabapentin 300 Mg Cap PO 300 mg Q8HR JEANNA Administration Glipizide 2.5 mg 12/20/21 08:00 12/21/21 09:03 Glipizide Xl 2.5 Mg Tab PO 2.5 mg 0800 JEANNA Administration Levothyroxine Sodium 25 mcg 12/18/21 06:00 12/21/21 05:45 Levothyroxine 25 Mcg Tab PO 25 mcg 0600 JEANNA Administration Levothyroxine Sodium 112 mcg 12/18/21 06:00 12/21/21 05:45 Levothyroxine 112 Mcg Tab PO 112 mcg 0600 JEANNA Administration Melatonin 5 mg 12/18/21 22:40 12/20/21 20:44 Melatonin 5 Mg Tab PO 5 mg QHS PRN Administration Sleep Metformin HCl 1,000 mg 12/17/21 17:00 12/21/21 09:04 Metformin 500 Mg Tab PO 1,000 mg BIDDIAB JEANNA Administration Metoprolol Tartrate 100 mg 12/17/21 12:00 12/21/21 09:04 Metoprolol Tartrate 50 Mg Tab PO 100 mg BID JEANNA Administration Miscellaneous Medication 10 mg 12/17/21 22:00 Loxapine Succinate [Loxapine] PO HS [facility] Miscellaneous Medication 80 mg 12/18/21 10:00 12/21/21 09:05 Telmisartan [Micardis] PO 80 mg DAILY JEANNA Administration Multivitamins/Minerals 1 each 12/18/21 10:00 12/21/21 09:02 Multivitamins,Ther W-Minerals Tab PO 1 each QDAY JEANNA Administration Olanzapine 5 mg 12/18/21 11:00 12/21/21 09:03 Olanzapine 5 Mg Tab PO 5 mg QDAY JEANNA Administration Pantoprazole Sodium 40 mg 12/17/21 16:00 12/21/21 09:02 Pantoprazole 40 Mg Tab PO 40 mg QDAY JEANNA Administration Rivaroxaban 20 mg 12/17/21 17:00 12/20/21 19:00 Rivaroxaban 20 Mg Tab PO 20 mg QPMDIAB JEANNA Administration Protocol Sucralfate 1 gm 12/17/21 16:30 12/21/21 09:03 Sucralfate 1 Gm Tab PO 1 gm ACHS JEANNA Administration Trazodone HCl 50 mg 12/18/21 22:30 12/20/21 21:24 Trazodone 50 Mg Tab PO 50 mg QHS JEANNA Administration Vitamin B Complex/Vitamin C 1 each 12/18/21 10:00 12/21/21 09:02 B Complex W/Vitamin C Tab PO 1 each QDAY JEANNA Administration Zinc Acetate/Diphenhydramine 1 applic 12/18/21 11:00 Diphenhydramine/Zinc Acet 2% Cream 28.4 Gm TP Q8H PRN Itching
[2021-12-21] MEDS ORDERED: ZIPRASIDONE MESYLATE 20 MG VIAL IM PRN (12:30)
[2021-12-21] MEDS: RIVAROXABAN 20 MG TAB PO SCH (16:56)
[2021-12-21] MEDS: ACETAMINOPHEN 325 MG TAB PO PRN (21:07)
[2021-12-21] MEDS: traZODone 50 MG TAB PO SCH (21:15)
[2021-12-21] MEDS ORDERED: WATER FOR INJ Sterile (PF) 0 ML ONE (21:46)
[2021-12-22] MEDS: LEVOTHYROXINE 25 MCG TAB PO SCH (06:35)
[2021-12-22] MEDS: GABAPENTIN 300 MG CAP PO SCH ×3 (06:35→21:21)
[2021-12-22] MEDS: LEVOTHYROXINE 112 MCG TAB PO SCH (06:35)
[2021-12-22] MEDS: BUDESONIDE 0.5 MG/2 ML NEBU IH SCH ×2 (08:19→19:37)
[2021-12-22] MEDS: ARFORMOTEROL 15 MCG/2 ML NEBU IH SCH ×2 (08:19→19:37)
[2021-12-22] MEDS: FUROSEMIDE 40 MG TAB PO SCH (09:04)
[2021-12-22] MEDS: CYANOCOBALAMIN (VIT B-12) 1000 MCG TAB PO SCH (09:04)
[2021-12-22] MEDS: CALCIUM CARBONATE 648 MG TAB PO SCH (09:04)
[2021-12-22] MEDS: MULTIVITAMINS,THER W-MINERALS TAB PO SCH (09:04)
[2021-12-22] MEDS: FLUoxetine 20 MG CAP PO SCH (09:04)
[2021-12-22] MEDS: metFORMIN 500 MG TAB PO SCH ×2 (09:04→16:53)
[2021-12-22] MEDS: DIVALPROEX DR 250 MG TAB PO SCH ×2 (09:05→21:21)
[2021-12-22] MEDS: FERROUS SULFATE 325 MG TAB PO SCH (09:05)
[2021-12-22] MEDS: SUCRALFATE 1 GM TAB PO SCH ×4 (09:05→21:21)
[2021-12-22] MEDS: CETIRIZINE 10 MG TAB PO SCH (09:05)
[2021-12-22] MEDS: PANTOPRAZOLE 40 MG TAB PO SCH (09:05)
[2021-12-22] MEDS: dilTIAZem CD 120 MG CAP PO SCH (09:05)
[2021-12-22] MEDS: B COMPLEX W/VITAMIN C TAB PO SCH (09:05)
[2021-12-22] MEDS: METOPROLOL TARTRATE 50 MG TAB PO SCH ×2 (09:06→21:22)
[2021-12-22] MEDS: TELMISARTAN 80 MG PO SCH (09:12)
[2021-12-22] MEDS: FLUTICASONE PROPIONATE NASAL SPRAY 16 GM NS SCH (09:12)
--- NOTE | 2021-12-22 09:19 | Progress Note ---
Subjective Date of service: 12/22/21 Principal diagnosis: MDD Subjective Comment: 12/22: The patient was seen and being talkative. The patient continues to have delusions and flight of ideas. " I came because someone stole my heart medications, [place] police set me up, I have to fight for my name, they want to destroy me." He denies any current suicidal/homicidal ideation and denies hallucinations. Start Zyprexa 5mg po BID 12/21: The patient was seen today. he continues to be talkative and grandiose. He denies being depressed. The patient denies any current suicidal/homicidal ideation and denies hallucinations. Increased Depakote DR to 250mg po BID 12/20: The patient was seen today. He is pacing,intrusive and hyperverbal. The patient states he is doing well. " I like to help people." he states sleep and appetite is good. He denies any current suicidal/homicidal ideation and denies hallucinations. 12/19: The patient was seen today. He is calm, cooperative and polite. He says he feels great. He denies SI/HI. The patient says he doesn't feel safe in his room, because other patient's are walking in hallway at night. He denies hallucinations. 12/18 The patient was seen today. He is cooperative. He appears anxious and delusional. He is clenching his fists, and states he has to help people here. He is asking to go home. He denies SI/HI or hallucinations. Staff says the patient has been intrusive, and disorganized thoughts at times. REVIEW OF SYSTEMS Constitutional: Negative for weight loss ENT: Negative for stridor Respiratory: Negative for cough or hemoptysis All other systems reviewed and are negative MENTAL STATUS EXAMINATION General Appearance and Behavior: Age appropriate, good hygiene, wearing appropriate clothes, good eye contact, anxious, cooperative Cooperation: Participating/engaged, but Guarded Psychomotor Behavior: Psychomotor normal Mood:OK Affect and affective range: Incongruent with stated mood Thought Process: Circumstantial,grandiose Thought Content: Delusions Speech: normal tone and pace, flight of ideas, Suicidal Ideation: Denies Homicidal Ideation: Denies Hallucinations: Denies Delusions: Yes Impulse Control: Limited Insight and Judgment: Poor insight and judgment Memory: Limited Attention: attentive Orientation: Alert, oriented Assessment and Plan Delusional disorder Treatment Plan Patient admitted for inpatient psychiatric evaluation, medication adjustment an d close monitoring The patient's behavior, mood, sleep and appetite will be closely monitored. Patient enrolled in individual and group therapeutic sessions and encouraged to attend. Patient provided with a safe and structured environment. Patient's physical health needs will be addressed by the Hospitalist. Hospitalist Consulted Labs including CBC, CMP, Lipid profile and Hemoglobin A1C levels ordered for baseline reference Social Assessment will be completed and the Phonograph Needle Tip Maker will work with patient and family to ensure a suitable and safe disposition Medication adjustment will be made as clinically indicated Continue Olanzapine 5mg po daily Usual Wellness Holiness/Preservation: - Start Trazodone 50 mg po QHS & 50 mg po QHS PRN between 10 PM & 2 AM for insomnia - Start Melatonin 5 mg po QHS to promote circadian rhythm The patient agreed on the treatment plan, understood the risk, benefit, alternative treatment, potential consequence of no treatment, and gave informed consent. Estimated days: 1 Post hospital care: primary care provider, psychiatric provider Case staffed with Dr. Burroughs Medications and Allergies Medications and Allergies Allergies Allergy/AdvReac Type Severity Reaction Status Date / Time azithromycin Allergy Vomiting Verified 12/16/21 23:57 erythromycin base Allergy Vomiting Verified 12/16/21 23:57 Tetracyclines Allergy Vomiting Verified 12/16/21 23:57 Home Medications Medication Instructions Recorded Confirmed Last Taken Type Acetaminophen [Arthritis Pain 650 mg PO Q6HR PRN 01/23/16 12/16/21 Unknown History Relief] Albuterol Sulfate [Ventolin HFA] 2 puff IH Q6HR PRN 01/23/16 12/16/21 Unknown History Budesoni/Formotero 160-4.5(Nf) 2 puff IH BID 01/23/16 12/16/21 Unknown History [Symbicort 160-4.5 (Nf)] Cholecalciferol (Vitamin D3) 400 unit PO DAILY 01/23/16 12/16/21 Unknown History [Vitamin D-3] FLUoxetine [PROzac] 60 mg PO QDAY 01/23/16 12/16/21 Unknown History Fluticasone [Flonase] 1 spray NS QDAY 01/23/16 12/16/21 Unknown History Gabapentin [Neurontin] 300 mg PO Q8HR 01/23/16 12/16/21 Unknown History Levothyroxine [Synthroid] 25 mcg PO QAM 01/23/16 12/16/21 Unknown History Levothyroxine [Synthroid] 112 mcg PO QAM 01/23/16 12/16/21 Unknown History Metformin HCl [Glucophage] 1,000 mg PO BID 01/23/16 12/16/21 Unknown History Metoprolol Tartrate [Lopressor] 100 mg PO BID 01/23/16 12/16/21 Unknown History Pantoprazole [Protonix] 40 mg PO QDAY 01/23/16 12/16/21 Unknown History glipiZIDE [Glucotrol] 5 mg PO QDAY 01/23/16 12/16/21 Unknown History Calcium Carbonate [Calcium] 600 mg PO DAILY 12/16/21 12/16/21 Unknown History Cetirizine HCl [Allergy] 10 mg PO DAILY 12/16/21 12/16/21 Unknown History Cyanocobalamin [Vitamin B-12] 1,000 mcg PO DAILY 12/16/21 12/16/21 Unknown History Ferrous Sulfate [Slow Release Iron] 134 mg PO DAILY 12/16/21 12/16/21 Unknown History Furosemide [Lasix] 40 mg PO DAILY 12/16/21 12/16/21 Unknown History Ipratropium [Atrovent] 0.5 mg IH Q8HRT 12/16/21 12/16/21 Unknown History Loxapine Succinate [Loxapine] 10 mg PO HS 12/16/21 12/16/21 Unknown History Rivaroxaban [Xarelto] 20 mg PO QDAY 12/16/21 12/16/21 Unknown History Sucralfate [Carafate] 1 gm PO ACHS 12/16/21 12/16/21 Unknown History Telmisartan [Micardis] 80 mg PO DAILY 12/16/21 12/16/21 Unknown History Vit A/Vit C/Vit E/Zinc/Copper 1 each PO DAILY 12/16/21 12/16/21 Unknown History [Preservision Areds Tablet] Vitamin B Complex [Balanced B-50] 1 each PO DAILY 12/16/21 12/16/21 Unknown History dilTIAZem CD [Cardizem Cd] 120 mg PO DAILY 12/16/21 12/16/21 Unknown History Active Meds: Active Medications Acetaminophen (Acetaminophen 325 Mg Tab) 650 mg PO Q6HR PRN PRN Reason: Pain, Moderate (4-6) Last Admin: 12/21/21 21:07 Dose: 650 mg Albuterol (Albuterol 2.5 Mg/3 Ml Nebu) 2.5 mg IH Q4HRT PRN PRN Reason: Shortness Of Breath Arformoterol Tartrate (Arformoterol 15 Mcg/2 Ml Nebu) 15 mcg IH Q12HRT [facility] Last Admin: 12/22/21 08:19 Dose: Not Given Budesonide (Budesonide 0.5 Mg/2 Ml Nebu) 1 mg IH Q12HRT [facility] Last Admin: 12/22/21 08:19 Dose: Not Given Calcium Carbonate/Glycine (Calcium Carbonate 648 Mg Tab) 648 mg PO DAILY [facility] Last Admin: 12/22/21 09:04 Dose: 648 mg Cetirizine HCl (Cetirizine 10 Mg Tab) 10 mg PO DAILY [facility] Last Admin: 12/22/21 09:05 Dose: 10 mg Cholecalciferol (Cholecalciferol (Vit D3) 400 Unit Tab) 400 unit PO QDAY [facility] Last Admin: 12/21/21 09:03 Dose: 400 unit Cyanocobalamin (Cyanocobalamin (Vit B-12) 1000 Mcg Tab) 1,000 mcg PO DAILY [facility] Last Admin: 12/22/21 09:04 Dose: 1,000 mcg Diltiazem HCl (Diltiazem Cd 120 Mg Cap) 120 mg PO DAILY [facility] Last Admin: 12/22/21 09:05 Dose: 120 mg Divalproex Sodium (Divalproex Dr 250 Mg Tab) 250 mg PO BID [facility] Last Admin: 12/22/21 09:05 Dose: 250 mg Ferrous Sulfate (Ferrous Sulfate 325 Mg Tab) 325 mg PO DAILY [facility] Last Admin: 12/22/21 09:05 Dose: 325 mg Fluoxetine HCl (Fluoxetine 20 Mg Cap) 60 mg PO QDAY [facility] Last Admin: 12/22/21 09:04 Dose: 60 mg Fluticasone Propionate (Fluticasone Propionate Nasal [place] 16 Gm) 50 mcg NS QDAY [facility] Last Admin: 12/22/21 09:12 Dose: 50 mcg Furosemide (Furosemide 40 Mg Tab) 40 mg PO DAILY [facility] Last Admin: 12/22/21 09:04 Dose: 40 mg Gabapentin (Gabapentin 300 Mg Cap) 300 mg PO Q8HR [facility] Last Admin: 12/22/21 06:35 Dose: 300 mg Glipizide (Glipizide Xl 2.5 Mg Tab) 2.5 mg PO 0800 [facility] Last Admin: 12/22/21 09:07 Dose: Not Given Levothyroxine Sodium (Levothyroxine 25 Mcg Tab) 25 mcg PO 0600 [facility] Last Admin: 12/22/21 06:35 Dose: 25 mcg Levothyroxine Sodium (Levothyroxine 112 Mcg Tab) 112 mcg PO 0600 [facility] Last Admin: 12/22/21 06:35 Dose: 112 mcg Melatonin (Melatonin 5 Mg Tab) 5 mg PO QHS PRN PRN Reason: Sleep Last Admin: 12/20/21 20:44 Dose: 5 mg Metformin HCl (Metformin 500 Mg Tab) 1,000 mg PO BIDDIAB [facility] Last Admin: 12/22/21 09:04 Dose: 1,000 mg Metoprolol Tartrate (Metoprolol Tartrate 50 Mg Tab) 100 mg PO BID [facility] Last Admin: 12/22/21 09:06 Dose: 100 mg Miscellaneous Medication (Loxapine Succinate [Loxapine]) 10 mg PO [facility] Miscellaneous Medication (Telmisartan [Micardis]) 80 mg PO DAILY [facility] Last Admin: 12/22/21 09:12 Dose: 80 mg Multivitamins/Minerals (Multivitamins,Ther W-Minerals Tab) 1 each PO QDAY [facility] Last Admin: 12/22/21 09:04 Dose: 1 each Olanzapine (Olanzapine 5 Mg Tab) 5 mg PO QDAY [facility] Last Admin: 12/22/21 09:04 Dose: 5 mg Pantoprazole Sodium (Pantoprazole 40 Mg Tab) 40 mg PO QDAY [facility] Last Admin: 12/22/21 09:05 Dose: 40 mg Rivaroxaban (Rivaroxaban 20 Mg Tab) 20 mg PO QPMDIAB [facility]; Protocol Last Admin: 12/21/21 16:56 Dose: 20 mg Sucralfate (Sucralfate 1 Gm Tab) 1 gm PO ACHS [facility] Last Admin: 12/22/21 09:05 Dose: 1 gm Trazodone HCl (Trazodone 50 Mg Tab) 50 mg PO QHS [facility] Last Admin: 12/21/21 21:15 Dose: 50 mg Vitamin B Complex/Vitamin C (B Complex W/Vitamin C Tab) 1 each PO QDAY [facility] Last Admin: 12/22/21 09:05 Dose: 1 each Zinc Acetate/Diphenhydramine (Diphenhydramine/Zinc Acet 2% Cream 28.4 Gm) 1 applic TP Q8H PRN PRN Reason: Itching Ziprasidone (Ziprasidone Mesylate 20 Mg Vial) 20 mg IM Q4H PRN PRN Reason: Agitation Results - Results Labs/Vitals: Laboratory Last Values WBC 10.0 K/mm3 (4.5-11.0) 12/18/21 13:37 RBC 4.36 M/mm3 (3.65-5.03) 12/18/21 13:37 Hgb 13.5 gm/dl (11.8-15.2) 12/18/21 13:37 Hct 40.0 % (35.5-45.6) 12/18/21 13:37 MCV 92 fl (84-94) 12/18/21 13:37 MCH 31 pg (28-32) 12/18/21 13:37 MCHC 34 % (32-34) 12/18/21 13:37 RDW 14.9 % (13.2-15.2) 12/18/21 13:37 Plt Count 344 K/mm3 (140-440) 12/18/21 13:37 Lymph % (Auto) 20.3 % (13.4-35.0) 12/17/21 00:54 [place] % (Auto) 11.3 % (0.0-7.3) H 12/17/21 00:54 Eos % (Auto) 3.4 % (0.0-4.3) 12/17/21 00:54 Baso % (Auto) 0.5 % (0.0-1.8) 12/17/21 00:54 Lymph # (Auto) 1.8 K/mm3 (1.2-5.4) 12/17/21 00:54 [place] # (Auto) 1.0 K/mm3 (0.0-0.8) H 12/17/21 00:54 Eos # (Auto) 0.3 K/mm3 (0.0-0.4) 12/17/21 00:54 Baso # (Auto) 0.0 K/mm3 (0.0-0.1) 12/17/21 00:54 Seg Neutrophils % 64.5 % (40.0-70.0) 12/17/21 00:54 Seg Neutrophils # 5.7 K/mm3 (1.8-7.7) 12/17/21 00:54 Sodium 134 mmol/L (137-145) L 12/19/21 13:16 Potassium 5.2 mmol/L (3.6-5.0) H 12/19/21 13:16 Chloride 96.6 mmol/L (98-107) L 12/19/21 13:16 Carbon Dioxide 25 mmol/L (22-30) 12/19/21 13:16 Anion Gap 18 mmol/L 12/19/21 13:16 BUN 23 mg/dL (9-20) H 12/19/21 13:16 Creatinine 0.9 mg/dL (0.8-1.3) 12/19/21 13:16 Estimated GFR > 60 ml/min 12/19/21 13:16 BUN/Creatinine Ratio 26 % 12/19/21 13:16 Glucose 99 mg/dL (75-100) 12/19/21 13:16 POC Glucose 97 mg/dL (70-105) 12/21/21 19:37 Hemoglobin A1c 6.0 % (4-6) 12/17/21 00:54 Calcium 10.5 mg/dL (8.4-10.2) H 12/19/21 13:16 Total Bilirubin 0.40 mg/dL (0.1-1.2) 12/17/21 00:54 AST 19 units/L (5-40) 12/17/21 00:54 ALT 24 units/L (7-56) 12/17/21 00:54 Alkaline Phosphatase 127 units/L (35-129) 12/17/21 00:54 Total Protein 6.8 g/dL (6.3-8.2) 12/17/21 00:54 Albumin 4.3 g/dL (3.9-5) 12/17/21 00:54 Albumin/Globulin Ratio 1.7 % 12/17/21 00:54 Triglycerides 59 mg/dL (2-149) 12/17/21 00:54 Cholesterol 106 mg/dL (50-199) 12/17/21 00:54 LDL Cholesterol Direct 53 mg/dL (50-130) 04/26/22 00:54 HDL Cholesterol 46 mg/dL (40-59) 12/17/21 00:54 Cholesterol/HDL Ratio 2.30 % 12/17/21 00:54 TSH 1.010 mlU/mL (0.270-4.200) 12/17/21 00:54 Hep Bs Antigen Non-reactive (Negative) 12/17/21 00:54 Hep B Core IgM Ab Non-reactive (NonReactive) 12/17/21 00:54 Hepatitis C Antibody Non-reactive (NonReactive) 12/17/21 00:54 Last Vital Signs Temp 97.7 F 12/22/21 07:20 Pulse 70 12/22/21 09:06 Resp 16 12/22/21 07:20 BP 121/68 12/22/21 09:06 Pulse Ox 100 12/22/21 07:20
[2021-12-22] MEDS: ACETAMINOPHEN 325 MG TAB PO PRN ×2 (09:34→21:45)
[2021-12-22] MEDS: CHOLECALCIFEROL (VIT D3) 400 UNIT TAB PO SCH (09:34)
[2021-12-22] MEDS: RIVAROXABAN 20 MG TAB PO SCH (16:41)
--- NOTE | 2021-12-22 20:01 | Progress Note ---
Assessment and Plan - Patient Problems (1) Vascular dementia with behavioral disturbance Current Visit: Yes Status: Acute Plan to address problem: Verbal prompting, verbal redirection, benzodiazepine therapy as clinically indicated. Supportive care (2) Cerebral atherosclerosis Current Visit: Yes Status: Acute Plan to address problem: Risk factor reduction, antiplatelet therapy as clinically indicated. (3) Atrial fibrillation Current Visit: Yes Status: Acute Qualifiers: Atrial fibrillation type: longstanding persistent Qualified Code(s): I48.11 - Longstanding persistent atrial fibrillation Plan to address problem: Therapeutic anticoagulation, rate controlled, continue medical management. Out patient cardiology follow-up. (4) ELEAZAR (generalized anxiety disorder) Current Visit: Yes Status: Acute Plan to address problem: Benzodiazepine therapy as clinically indicated, continue current care. (5) MDD (major depressive disorder) Current Visit: Yes Status: Acute Qualifiers: Major depression episode severity: unspecified Plan to address problem: Continue medical management, (6) Hypothyroidism Current Visit: Yes Status: Acute Plan to address problem: Continue Synthroid therapy, supportive care. (7) GERD (gastroesophageal reflux disease) Current Visit: Yes Status: Acute Qualifiers: Esophagitis presence: without esophagitis Qualified Code(s): K21.9 - Gastro-esophageal reflux disease without esophagitis Plan to address problem: PPI therapy, bland diet, supportive care. (8) Diabetes Current Visit: Yes Status: Acute Plan to address problem: Consistent carbohydrate diet, oral antihyperglycemic therapy, continue medical management. (9) Diastolic CHF Current Visit: Yes Status: Acute Qualifiers: Heart failure chronicity: chronic Qualified Code(s): I50.32 - Chronic diastolic (congestive) heart failure Plan to address problem: Strict I's/O, monitor daily weight, continue current management. Outpatient cardiology follow-up. No acute exacerbation at this time. (10) Advance care planning Current Visit: Yes Status: Acute Plan to address problem: Disease education conducted, care plan discussed, diagnoses discussed, prognosis discussed, patient is full code. Patient knowledges understanding and agreement with care plan, +30 minutes. History Interval history: 76 YO Male with Vascular Dementia with Behavioral Disturbance, Cerebral Atherosclerosis, Atrial Fib on therapeutic anticoagulation, CHF, DM, Diastolic CHF, Hypothyroidism, HTN, ELEAZAR, MDD admitted to [facility] for psychiatric stabilization. Consult placed by Dr. Mancilla for medical management. Patient seen and evaluated in the recreation room. No reported nursing events. Patient denies pain. Patient remains at baseline level of cognition and function. Hospitalist Physical - Constitutional Vitals: Temp Pulse Resp BP Pulse Ox 97.7 F 74 18 121/68 100 12/22/21 07:20 12/22/21 19:43 12/22/21 19:43 12/22/21 09:06 12/22/21 07:20 General appearance: Present: no acute distress - EENT Eyes: Present: PERRL ENT: hearing decreased - Neck Neck: Present: supple - Respiratory Respiratory effort: normal Respiratory: bilateral: diminished - Cardiovascular Rhythm: regular Heart Sounds: Present: S1 & S2 - Extremities Extremities: no ischemia Peripheral Pulses: within normal limits - Abdominal General gastrointestinal: soft, non-tender, non-distended - Integumentary Integumentary: Present: clear, dry - Psychiatric Psychiatric: cooperative - Neurologic Neurologic: CNII-XII intact Results - Labs CBC & Chem 7: 12/18/21 13:37 12/19/21 13:16 Labs: Laboratory Last Values WBC 10.0 K/mm3 (4.5-11.0) 12/18/21 13:37 RBC 4.36 M/mm3 (3.65-5.03) 12/18/21 13:37 Hgb 13.5 gm/dl (11.8-15.2) 12/18/21 13:37 Hct 40.0 % (35.5-45.6) 12/18/21 13:37 MCV 92 fl (84-94) 12/18/21 13:37 MCH 31 pg (28-32) 12/18/21 13:37 MCHC 34 % (32-34) 12/18/21 13:37 RDW 14.9 % (13.2-15.2) 12/18/21 13:37 Plt Count 344 K/mm3 (140-440) 12/18/21 13:37 Lymph % (Auto) 20.3 % (13.4-35.0) 12/17/21 00:54 [place] % (Auto) 11.3 % (0.0-7.3) H 12/17/21 00:54 Eos % (Auto) 3.4 % (0.0-4.3) 12/17/21 00:54 Baso % (Auto) 0.5 % (0.0-1.8) 12/17/21 00:54 Lymph # (Auto) 1.8 K/mm3 (1.2-5.4) 12/17/21 00:54 [place] # (Auto) 1.0 K/mm3 (0.0-0.8) H 12/17/21 00:54 Eos # (Auto) 0.3 K/mm3 (0.0-0.4) 12/17/21 00:54 Baso # (Auto) 0.0 K/mm3 (0.0-0.1) 12/17/21 00:54 Seg Neutrophils % 64.5 % (40.0-70.0) 12/17/21 00:54 Seg Neutrophils # 5.7 K/mm3 (1.8-7.7) 12/17/21 00:54 Sodium 134 mmol/L (137-145) L 12/19/21 13:16 Potassium 5.2 mmol/L (3.6-5.0) H 12/19/21 13:16 Chloride 96.6 mmol/L (98-107) L 12/19/21 13:16 Carbon Dioxide 25 mmol/L (22-30) 12/19/21 13:16 Anion Gap 18 mmol/L 12/19/21 13:16 BUN 23 mg/dL (9-20) H 12/19/21 13:16 Creatinine 0.9 mg/dL (0.8-1.3) 12/19/21 13:16 Estimated GFR > 60 ml/min 12/19/21 13:16 BUN/Creatinine Ratio 26 % 12/19/21 13:16 Glucose 99 mg/dL (75-100) 12/19/21 13:16 POC Glucose 75 mg/dL (70-105) 12/22/21 16:51 Hemoglobin A1c 6.0 % (4-6) 12/17/21 00:54 Calcium 10.5 mg/dL (8.4-10.2) H 12/19/21 13:16 Total Bilirubin 0.40 mg/dL (0.1-1.2) 12/17/21 00:54 AST 19 units/L (5-40) 12/17/21 00:54 ALT 24 units/L (7-56) 12/17/21 00:54 Alkaline Phosphatase 127 units/L (35-129) 12/17/21 00:54 Total Protein 6.8 g/dL (6.3-8.2) 12/17/21 00:54 Albumin 4.3 g/dL (3.9-5) 12/17/21 00:54 Albumin/Globulin Ratio 1.7 % 12/17/21 00:54 Triglycerides 59 mg/dL (2-149) 12/17/21 00:54 Cholesterol 106 mg/dL (50-199) 12/17/21 00:54 LDL Cholesterol Direct 53 mg/dL (50-130) 12/17/21 00:54 HDL Cholesterol 46 mg/dL (40-59) 12/17/21 00:54 Cholesterol/HDL Ratio 2.30 % 12/17/21 00:54 TSH 1.010 mlU/mL (0.270-4.200) 12/17/21 00:54 Hep Bs Antigen Non-reactive (Negative) 12/17/21 00:54 Hep B Core IgM Ab Non-reactive (NonReactive) 12/17/21 00:54 Hepatitis C Antibody Non-reactive (NonReactive) 12/17/21 00:54 [place]/IV: Voiding Method Toilet Active Medications - Current Medications Current Medications: Generic Name Dose Route Start Last Admin Trade Name Freq PRN Reason Stop Dose Admin Acetaminophen 650 mg 12/17/21 14:00 12/22/21 09:34 Acetaminophen 325 Mg Tab PO 650 mg Q6HR PRN Administration Pain, Moderate (4-6) Albuterol 2.5 mg 12/17/21 16:00 Albuterol 2.5 Mg/3 Ml Nebu IH Q4HRT PRN Shortness Of Breath Arformoterol Tartrate 15 mcg 12/18/21 08:00 12/22/21 19:37 Arformoterol 15 Mcg/2 Ml Nebu IH 15 mcg Q12HRT JEANNA Administration Budesonide 1 mg 12/18/21 08:00 12/22/21 19:37 Budesonide 0.5 Mg/2 Ml Nebu IH 1 mg Q12HRT JEANNA Administration Calcium Carbonate/Glycine 648 mg 12/17/21 15:00 12/22/21 09:04 Calcium Carbonate 648 Mg Tab PO 648 mg DAILY JEANNA Administration Cetirizine HCl 10 mg 12/18/21 10:00 12/22/21 09:05 Cetirizine 10 Mg Tab PO 10 mg DAILY JEANNA Administration Cholecalciferol 400 unit 12/18/21 10:00 12/22/21 09:34 Cholecalciferol (Vit D3) 400 Unit Tab PO 400 unit QDAY JEANNA Administration Cyanocobalamin 1,000 mcg 12/18/21 10:00 12/22/21 09:04 Cyanocobalamin (Vit B-12) 1000 Mcg Tab PO 1,000 mcg DAILY JEANNA Administration Diltiazem HCl 120 mg 12/17/21 12:00 12/22/21 09:05 Diltiazem Cd 120 Mg Cap PO 120 mg DAILY JEANNA Administration Divalproex Sodium 250 mg 12/22/21 10:00 12/22/21 09:[address] 250 Mg Tab PO 250 mg BID JEANNA Administration Ferrous Sulfate 325 mg 12/17/21 15:00 12/22/21 09:05 Ferrous Sulfate 325 Mg Tab PO 325 mg DAILY JEANNA Administration Fluoxetine HCl 60 mg 12/17/21 12:00 12/22/21 09:04 Fluoxetine 20 Mg Cap PO 60 mg QDAY JEANNA Administration Fluticasone Propionate 50 mcg 12/18/21 10:00 12/22/21 09:12 Fluticasone Propionate Nasal [place] 16 Gm NS 50 mcg QDAY JEANNA Administration Furosemide 40 mg 12/17/21 12:00 12/22/21 09:04 Furosemide 40 Mg Tab PO 40 mg DAILY JEANNA Administration Gabapentin 300 mg 12/17/21 14:00 12/22/21 14:00 Gabapentin 300 Mg Cap PO 300 mg Q8HR JEANNA Administration Glipizide 2.5 mg 12/20/21 08:00 12/22/21 09:07 Glipizide Xl 2.5 Mg Tab PO Not Given 0800 JEANNA Levothyroxine Sodium 25 mcg 12/18/21 06:00 12/22/21 06:35 Levothyroxine 25 Mcg Tab PO 25 mcg 0600 JEANNA Administration Levothyroxine Sodium 112 mcg 12/18/21 06:00 12/22/21 06:35 Levothyroxine 112 Mcg Tab PO 112 mcg 0600 JEANNA Administration Melatonin 5 mg 12/18/21 22:40 12/20/21 20:44 Melatonin 5 Mg Tab PO 5 mg QHS PRN Administration Sleep Metformin HCl 1,000 mg 12/17/21 17:00 12/22/21 16:53 Metformin 500 Mg Tab PO Not Given BIDDIAB JEANNA Metoprolol Tartrate 100 mg 12/17/21 12:00 12/22/21 09:06 Metoprolol Tartrate 50 Mg Tab PO 100 mg BID JEANNA Administration Miscellaneous Medication 10 mg 12/17/21 22:00 Loxapine Succinate [Loxapine] PO HS [facility] Miscellaneous Medication 80 mg 12/18/21 10:00 12/22/21 09:12 Telmisartan [Micardis] PO 80 mg DAILY JEANNA Administration Multivitamins/Minerals 1 each 12/18/21 10:00 12/22/21 09:04 Multivitamins,Ther W-Minerals Tab PO 1 each QDAY JEANNA Administration Olanzapine 5 mg 12/22/21 10:00 12/22/21 10:07 Olanzapine 5 Mg Tab PO Not Given BID JEANNA Pantoprazole Sodium 40 mg 12/17/21 16:00 12/22/21 09:05 Pantoprazole 40 Mg Tab PO 40 mg QDAY JEANNA Administration Rivaroxaban 20 mg 12/17/21 17:00 12/22/21 16:41 Rivaroxaban 20 Mg Tab PO 20 mg QPMDIAB JEANNA Administration Protocol Sucralfate 1 gm 12/17/21 16:30 12/22/21 16:41 Sucralfate 1 Gm Tab PO 1 gm ACHS JEANNA Administration Trazodone HCl 50 mg 12/18/21 22:30 12/21/21 21:15 Trazodone 50 Mg Tab PO 50 mg QHS JEANNA Administration Vitamin B Complex/Vitamin C 1 each 12/18/21 10:00 12/22/21 09:05 B Complex W/Vitamin C Tab PO 1 each QDAY JEANNA Administration Zinc Acetate/Diphenhydramine 1 applic 12/18/21 11:00 Diphenhydramine/Zinc Acet 2% Cream 28.4 Gm TP Q8H PRN Itching Ziprasidone 20 mg 12/21/21 12:30 Ziprasidone Mesylate 20 Mg Vial IM Q4H PRN Agitation
[2021-12-22] MEDS: traZODone 50 MG TAB PO SCH (21:21)
[2021-12-23] MEDS: MELATONIN 5 MG TAB PO PRN (00:33)
[2021-12-23] MEDS ORDERED: WATER FOR INJ Sterile (PF) 10 ML ONE (02:16)
[2021-12-23] MEDS: LEVOTHYROXINE 112 MCG TAB PO SCH (06:13)
[2021-12-23] MEDS: GABAPENTIN 300 MG CAP PO SCH ×3 (06:13→21:17)
[2021-12-23] MEDS: LEVOTHYROXINE 25 MCG TAB PO SCH (06:13)
[2021-12-23] MEDS: ARFORMOTEROL 15 MCG/2 ML NEBU IH SCH (07:55)
[2021-12-23] MEDS: BUDESONIDE 0.5 MG/2 ML NEBU IH SCH (07:55)
[2021-12-23] MEDS: SUCRALFATE 1 GM TAB PO SCH ×4 (08:10→21:17)
--- NOTE | 2021-12-23 08:45 | Progress Note ---
Subjective Date of service: 12/23/21 Principal diagnosis: MDD Subjective Comment: 12/23: The patient was seen today. He is calm. He states he is doing well and mood is good. He denies depression. The patient denies any current suicidal/homicidal ideation and denies hallucinations. Increased Trazodone to 100mg po QHS. Per nurse, "Pt was agitated & very disruptive during the night. Requested & accepted Tylenol 650 mg po @ 2145 for pain on his feet. Went to bed & slept for about 1 & 1/2 hours. Pacing & constantly telling staff members that he is a team player and he is here to help everybody. At 0033 he was offered & accepted Melatonin 5 mg po prn. Med was not effective. Pt refused to follow staff directions & constantly going back & forth on the hallway disturbing other pts. At one time, he lay on the floor on the hallway. He got up went to his room & then came back & started banging on the window @ the nurses' station. Security called & Geodon 20 mg IM given @ 0230. Pt did not fall asleep unit about 0430. He remains asleep @ this moment." 12/22: The patient was seen and being talkative. The patient continues to have delusions and flight of ideas. " I came because someone stole my heart medications, [place] police set me up, I have to fight for my name, they want to destroy me." He denies any current suicidal/homicidal ideation and denies hallucinations. Start Zyprexa 5mg po BID 12/21: The patient was seen today. he continues to be talkative and grandiose. He denies being depressed. The patient denies any current suicidal/homicidal ideation and denies hallucinations. Increased Depakote DR to 250mg po BID 12/20: The patient was seen today. He is pacing,intrusive and hyperverbal. The patient states he is doing well. " I like to help people." he states sleep and appetite is good. He denies any current suicidal/homicidal ideation and denies hallucinations. 12/19: The patient was seen today. He is calm, cooperative and polite. He says he feels great. He denies SI/HI. The patient says he doesn't feel safe in his room, because other patient's are walking in hallway at night. He denies h allucinations. 12/18 The patient was seen today. He is cooperative. He appears anxious and delusional. He is clenching his fists, and states he has to help people here. He is asking to go home. He denies SI/HI or hallucinations. Staff says the patient has been intrusive, and disorganized thoughts at times. REVIEW OF SYSTEMS Constitutional: Negative for weight loss ENT: Negative for stridor Respiratory: Negative for cough or hemoptysis All other systems reviewed and are negative MENTAL STATUS EXAMINATION General Appearance and Behavior: Age appropriate, good hygiene, wearing appropriate clothes, good eye contact, anxious, cooperative Cooperation: Participating/engaged, but Guarded Psychomotor Behavior: Psychomotor normal Mood:good Affect and affective range: Incongruent Thought Process: Circumstantial,grandiose Thought Content: Delusions Speech: normal tone and pace, flight of ideas, Suicidal Ideation: Denies Homicidal Ideation: Denies Hallucinations: Denies Delusions: Yes Impulse Control: Limited Insight and Judgment: Poor insight and judgment Memory: Limited Attention: attentive Orientation: Alert, oriented Assessment and Plan Delusional disorder Treatment Plan Patient admitted for inpatient psychiatric evaluation, medication adjustment and close monitoring The patient's behavior, mood, sleep and appetite will be closely monitored. Patient enrolled in individual and group therapeutic sessions and encouraged to attend. Patient provided with a safe and structured environment. Patient's physical health needs will be addressed by the Hospitalist. Hospitalist Consulted Labs including CBC, CMP, Lipid profile and Hemoglobin A1C levels ordered for baseline reference Social Assessment will be completed and the [employer] Gatherer will work with patient and family to ensure a suitable and safe disposition Medication adjustment will be made as clinically indicated Continue Olanzapine 5mg po BID Start Trazodone 100mg po QHS Usual Wellness Mandaen/Preservation: - Start Trazodone 50 mg po QHS & 50 mg po QHS PRN between 10 PM & 2 AM for insomnia - Start Melatonin 5 mg po QHS to promote circadian rhythm The patient agreed on the treatment plan, understood the risk, benefit, alternative treatment, potential consequence of no treatment, and gave informed consent. Estimated days: 1 Post hospital care: primary care provider, psychiatric provider Case staffed with Dr. Burroughs Medications and Allergies Medications and Allergies Allergies Allergy/AdvReac Type Severity Reaction Status Date / Time azithromycin Allergy Vomiting Verified 12/16/21 23:57 erythromycin base Allergy Vomiting Verified 12/16/21 23:57 Tetracyclines Allergy Vomiting Verified 12/16/21 23:57 Home Medications Medication Instructions Recorded Confirmed Last Taken Type Acetaminophen [Arthritis Pain 650 mg PO Q6HR PRN 01/23/16 12/16/21 Unknown History Relief] Albuterol Sulfate [Ventolin HFA] 2 puff IH Q6HR PRN 01/23/16 12/16/21 Unknown History Budesoni/Formotero 160-4.5(Nf) 2 puff IH BID 01/23/16 12/16/21 Unknown History [Symbicort 160-4.5 (Nf)] Cholecalciferol (Vitamin D3) 400 unit PO DAILY 01/23/16 12/16/21 Unknown History [Vitamin D-3] FLUoxetine [PROzac] 60 mg PO QDAY 01/23/16 12/16/21 Unknown History Fluticasone [Flonase] 1 spray NS QDAY 01/23/16 12/16/21 Unknown History Gabapentin [Neurontin] 300 mg PO Q8HR 01/23/16 12/16/21 Unknown History Levothyroxine [Synthroid] 25 mcg PO QAM 01/23/16 12/16/21 Unknown History Levothyroxine [Synthroid] 112 mcg PO QAM 01/23/16 12/16/21 Unknown History Metformin HCl [Glucophage] 1,000 mg PO BID 01/23/16 12/16/21 Unknown History Metoprolol Tartrate [Lopressor] 100 mg PO BID 01/23/16 12/16/21 Unknown History Pantoprazole [Protonix] 40 mg PO QDAY 01/23/16 12/16/21 Unknown History glipiZIDE [Glucotrol] 5 mg PO QDAY 01/23/16 12/16/21 Unknown History Calcium Carbonate [Calcium] 600 mg PO DAILY 12/16/21 12/16/21 Unknown History Cetirizine HCl [Allergy] 10 mg PO DAILY 12/16/21 12/16/21 Unknown History Cyanocobalamin [Vitamin B-12] 1,000 mcg PO DAILY 12/16/21 12/16/21 Unknown History Ferrous Sulfate [Slow Release Iron] 134 mg PO DAILY 12/16/21 12/16/21 Unknown History Furosemide [Lasix] 40 mg PO DAILY 12/16/21 12/16/21 Unknown History Ipratropium [Atrovent] 0.5 mg IH Q8HRT 12/16/21 12/16/21 Unknown History Loxapine Succinate [Loxapine] 10 mg PO HS 12/16/21 12/16/21 Unknown History Rivaroxaban [Xarelto] 20 mg PO QDAY 12/16/21 12/16/21 Unknown History Sucralfate [Carafate] 1 gm PO ACHS 12/16/21 12/16/21 Unknown History Telmisartan [Micardis] 80 mg PO DAILY 12/16/21 12/16/21 Unknown History Vit A/Vit C/Vit E/Zinc/Copper 1 each PO DAILY 12/16/21 12/16/21 Unknown History [Preservision Areds Tablet] Vitamin B Complex [Balanced B-50] 1 each PO DAILY 12/16/21 12/16/21 Unknown History dilTIAZem CD [Cardizem Cd] 120 mg PO DAILY 12/16/21 12/16/21 Unknown History Active Meds: Active Medications Acetaminophen (Acetaminophen 325 Mg Tab) 650 mg PO Q6HR PRN PRN Reason: Pain, Moderate (4-6) Last Admin: 12/22/21 21:45 Dose: 650 mg Albuterol (Albuterol 2.5 Mg/3 Ml Nebu) 2.5 mg IH Q4HRT PRN PRN Reason: Shortness Of Breath Arformoterol Tartrate (Arformoterol 15 Mcg/2 Ml Nebu) 15 mcg IH Q12HRT [facility] Last Admin: 12/23/21 07:55 Dose: 15 mcg Budesonide (Budesonide 0.5 Mg/2 Ml Nebu) 1 mg IH Q12HRT [facility] Last Admin: 12/23/21 07:55 Dose: 1 mg Calcium Carbonate/Glycine (Calcium Carbonate 648 Mg Tab) 648 mg PO DAILY [facility] Last Admin: 12/22/21 09:04 Dose: 648 mg Cetirizine HCl (Cetirizine 10 Mg Tab) 10 mg PO DAILY [facility] Last Admin: 12/22/21 09:05 Dose: 10 mg Cholecalciferol (Cholecalciferol (Vit D3) 400 Unit Tab) 400 unit PO QDAY [facility] Last Admin: 12/22/21 09:34 Dose: 400 unit Cyanocobalamin (Cyanocobalamin (Vit B-12) 1000 Mcg Tab) 1,000 mcg PO DAILY [facility] Last Admin: 12/22/21 09:04 Dose: 1,000 mcg Diltiazem HCl (Diltiazem Cd 120 Mg Cap) 120 mg PO DAILY [facility] Last Admin: 12/22/21 09:05 Dose: 120 mg Divalproex Sodium (Divalproex Dr 250 Mg Tab) 250 mg PO BID [facility] Last Admin: 12/22/21 21:21 Dose: 250 mg Ferrous Sulfate (Ferrous Sulfate 325 Mg Tab) 325 mg PO DAILY [facility] Last Admin: 12/22/21 09:05 Dose: 325 mg Fluoxetine HCl (Fluoxetine 20 Mg Cap) 60 mg PO QDAY [facility] Last Admin: 12/22/21 09:04 Dose: 60 mg Fluticasone Propionate (Fluticasone Propionate Nasal [place] 16 Gm) 50 mcg NS QDAY [facility] Last Admin: 12/22/21 09:12 Dose: 50 mcg Furosemide (Furosemide 40 Mg Tab) 40 mg PO DAILY [facility] Last Admin: 12/22/21 09:04 Dose: 40 mg Gabapentin (Gabapentin 300 Mg Cap) 300 mg PO Q8HR [facility] Last Admin: 12/23/21 06:13 Dose: 300 mg Glipizide (Glipizide Xl 2.5 Mg Tab) 2.5 mg PO 0800 [facility] Last Admin: 12/22/21 09:07 Dose: Not Given Levothyroxine Sodium (Levothyroxine 25 Mcg Tab) 25 mcg PO 0600 [facility] Last Admin: 12/23/21 06:13 Dose: 25 mcg Levothyroxine Sodium (Levothyroxine 112 Mcg Tab) 112 mcg PO 0600 [facility] Last Admin: 12/23/21 06:13 Dose: 112 mcg Melatonin (Melatonin 5 Mg Tab) 5 mg PO QHS PRN PRN Reason: Sleep Last Admin: 12/23/21 00:33 Dose: 5 mg Metformin HCl (Metformin 500 Mg Tab) 1,000 mg PO BIDDIAB [facility] Last Admin: 12/22/21 16:53 Dose: Not Given Metoprolol Tartrate (Metoprolol Tartrate 50 Mg Tab) 100 mg PO BID [facility] Last Admin: 12/22/21 21:22 Dose: 100 mg Miscellaneous Medication (Loxapine Succinate [Loxapine]) 10 mg PO [facility] Miscellaneous Medication (Telmisartan [Micardis]) 80 mg PO DAILY [facility] Last Admin: 12/22/21 09:12 Dose: 80 mg Multivitamins/Minerals (Multivitamins,Ther W-Minerals Tab) 1 each PO QDAY [facility] Last Admin: 12/22/21 09:04 Dose: 1 each Olanzapine (Olanzapine 5 Mg Tab) 5 mg PO BID [facility] Last Admin: 12/22/21 21:21 Dose: 5 mg Pantoprazole Sodium (Pantoprazole 40 Mg Tab) 40 mg PO QDAY [facility] Last Admin: 12/22/21 09:05 Dose: 40 mg Rivaroxaban (Rivaroxaban 20 Mg Tab) 20 mg PO QPMDIAB [facility]; Protocol Last Admin: 12/22/21 16:41 Dose: 20 mg Sucralfate (Sucralfate 1 Gm Tab) 1 gm PO ACHS [facility] Last Admin: 12/22/21 21:21 Dose: 1 gm Trazodone HCl (Trazodone 50 Mg Tab) 50 mg PO QHS [facility] Last Admin: 12/22/21 21:21 Dose: 50 mg Vitamin B Complex/Vitamin C (B Complex W/Vitamin C Tab) 1 each PO QDAY [facility] Last Admin: 12/22/21 09:05 Dose: 1 each Zinc Acetate/Diphenhydramine (Diphenhydramine/Zinc Acet 2% Cream 28.4 Gm) 1 applic TP Q8H PRN PRN Reason: Itching Ziprasidone (Ziprasidone Mesylate 20 Mg Vial) 20 mg IM Q4H PRN PRN Reason: Agitation Last Admin: 12/23/21 02:27 Dose: 20 mg Results - Results Labs/Vitals: Laboratory Last Values WBC 10.0 K/mm3 (4.5-11.0) 12/18/21 13:37 RBC 4.36 M/mm3 (3.65-5.03) 12/18/21 13:37 Hgb 13.5 gm/dl (11.8-15.2) 12/18/21 13:37 Hct 40.0 % (35.5-45.6) 12/18/21 13:37 MCV 92 fl (84-94) 12/18/21 13:37 MCH 31 pg (28-32) 12/18/21 13:37 MCHC 34 % (32-34) 12/18/21 13:37 RDW 14.9 % (13.2-15.2) 12/18/21 13:37 Plt Count 344 K/mm3 (140-440) 12/18/21 13:37 Lymph % (Auto) 20.3 % (13.4-35.0) 12/17/21 00:54 Russell % (Auto) 11.3 % (0.0-7.3) H 12/17/21 00:54 Eos % (Auto) 3.4 % (0.0-4.3) 12/17/21 00:54 Baso % (Auto) 0.5 % (0.0-1.8) 12/17/21 00:54 Lymph # (Auto) 1.8 K/mm3 (1.2-5.4) 12/17/21 00:54 Russell # (Auto) 1.0 K/mm3 (0.0-0.8) H 12/17/21 00:54 Eos # (Auto) 0.3 K/mm3 (0.0-0.4) 12/17/21 00:54 Baso # (Auto) 0.0 K/mm3 (0.0-0.1) 12/17/21 00:54 Seg Neutrophils % 64.5 % (40.0-70.0) 12/17/21 00:54 Seg Neutrophils # 5.7 K/mm3 (1.8-7.7) 12/17/21 00:54 Sodium 134 mmol/L (137-145) L 12/19/21 13:16 Potassium 5.2 mmol/L (3.6-5.0) H 12/19/21 13:16 Chloride 96.6 mmol/L (98-107) L 12/19/21 13:16 Carbon Dioxide 25 mmol/L (22-30) 12/19/21 13:16 Anion Gap 18 mmol/L 12/19/21 13:16 BUN 23 mg/dL (9-20) H 12/19/21 13:16 Creatinine 0.9 mg/dL (0.8-1.3) 12/19/21 13:16 Estimated GFR > 60 ml/min 12/19/21 13:16 BUN/Creatinine Ratio 26 % 12/19/21 13:16 Glucose 99 mg/dL (75-100) 12/19/21 13:16 POC Glucose 76 mg/dL (70-105) 12/22/21 20:30 Hemoglobin A1c 6.0 % (4-6) 12/17/21 00:54 Calcium 10.5 mg/dL (8.4-10.2) H 12/19/21 13:16 Total Bilirubin 0.40 mg/dL (0.1-1.2) 12/17/21 00:54 AST 19 units/L (5-40) 12/17/21 00:54 ALT 24 units/L (7-56) 12/17/21 00:54 Alkaline Phosphatase 127 units/L (35-129) 12/17/21 00:54 Total Protein 6.8 g/dL (6.3-8.2) 12/17/21 00:54 Albumin 4.3 g/dL (3.9-5) 12/17/21 00:54 Albumin/Globulin Ratio 1.7 % 12/17/21 00:54 Triglycerides 59 mg/dL (2-149) 12/17/21 00:54 Cholesterol 106 mg/dL (50-199) 12/17/21 00:54 LDL Cholesterol Direct 53 mg/dL (50-130) 12/17/21 00:54 HDL Cholesterol 46 mg/dL (40-59) 12/17/21 00:54 Cholesterol/HDL Ratio 2.30 % 12/17/21 00:54 TSH 1.010 mlU/mL (0.270-4.200) 12/17/21 00:54 Hep Bs Antigen Non-reactive (Negative) 12/17/21 00:54 Hep B Core IgM Ab Non-reactive (NonReactive) 12/17/21 00:54 Hepatitis C Antibody Non-reactive (NonReactive) 12/17/21 00:54 Last Vital Signs Temp 97.6 F 12/22/21 19:52 Pulse 82 12/22/21 21:22 Resp 18 12/22/21 19:52 BP 126/71 12/22/21 21:22 Pulse Ox 100 12/22/21 19:52
[2021-12-23] MEDS: TELMISARTAN 80 MG PO SCH (10:51)
--- NOTE | 2021-12-23 10:51 | Progress Note ---
Assessment and Plan Assessment and plan: Vascular dementia with behavioral disturbance Supportive care Cerebral atherosclerosis Hypertension Continue antihypertensive medications of metoprolol, telmisartan and Cardizem Atrial fibrillation. Therapeutic anticoagulation, rate controlled, continue medical management. Outpatient cardiology follow-up. Continue Cardizem, Xarelto Generalized anxiety Benzodiazepine therapy as clinically indicated, continue current care. Major depressive disorder Hypothyroidism Continue Synthroid therapy, supportive care. GERD Continue PPI Diabetes mellitus type 2 Continue Accu-Cheks and SSRI, continue glipizide and metformin Chronic diastolic heart failure. Compensated History Interval history: No new issues overnight Hospitalist Physical - Constitutional Vitals: Temp Pulse Resp BP Pulse Ox 97.6 F 82 18 126/71 100 12/22/21 19:52 12/23/21 08:05 12/23/21 08:05 12/22/21 21:22 12/22/21 19:52 General appearance: Present: no acute distress - EENT Eyes: Present: PERRL, EOM intact ENT: hearing intact, clear oral mucosa, dentition normal - Neck Neck: Present: supple, normal ROM - Respiratory Respiratory effort: normal Respiratory: bilateral: CTA - Cardiovascular Rhythm: regular Heart Sounds: Present: S1 & S2. Absent: gallop, rub - Extremities Extremities: no ischemia, No edema, Full ROM - Abdominal General gastrointestinal: soft, non-tender, non-distended, normal bowel sounds - Integumentary Integumentary: Present: clear, warm, dry - Neurologic Neurologic: CNII-XII intact, moves all extremities Results - Labs CBC & Chem 7: 12/18/21 13:37 12/19/21 13:16 Labs: Laboratory Last Values WBC 10.0 K/mm3 (4.5-11.0) 12/18/21 13:37 RBC 4.36 M/mm3 (3.65-5.03) 12/18/21 13:37 Hgb 13.5 gm/dl (11.8-15.2) 12/18/21 13:37 Hct 40.0 % (35.5-45.6) 12/18/21 13:37 MCV 92 fl (84-94) 12/18/21 13:37 MCH 31 pg (28-32) 12/18/21 13:37 MCHC 34 % (32-34) 12/18/21 13:37 RDW 14.9 % (13.2-15.2) 12/18/21 13:37 Plt Count 344 K/mm3 (140-440) 12/18/21 13:37 Lymph % (Auto) 20.3 % (13.4-35.0) 12/17/21 00:54 [place] % (Auto) 11.3 % (0.0-7.3) H 12/17/21 00:54 Eos % (Auto) 3.4 % (0.0-4.3) 12/17/21 00:54 Baso % (Auto) 0.5 % (0.0-1.8) 12/17/21 00:54 Lymph # (Auto) 1.8 K/mm3 (1.2-5.4) 12/17/21 00:54 [place] # (Auto) 1.0 K/mm3 (0.0-0.8) H 12/17/21 00:54 Eos # (Auto) 0.3 K/mm3 (0.0-0.4) 12/17/21 00:54 Baso # (Auto) 0.0 K/mm3 (0.0-0.1) 12/17/21 00:54 Seg Neutrophils % 64.5 % (40.0-70.0) 12/17/21 00:54 Seg Neutrophils # 5.7 K/mm3 (1.8-7.7) 12/17/21 00:54 Sodium 134 mmol/L (137-145) L 12/19/21 13:16 Potassium 5.2 mmol/L (3.6-5.0) H 12/19/21 13:16 Chloride 96.6 mmol/L (98-107) L 12/19/21 13:16 Carbon Dioxide 25 mmol/L (22-30) 12/19/21 13:16 Anion Gap 18 mmol/L 12/19/21 13:16 BUN 23 mg/dL (9-20) H 12/19/21 13:16 Creatinine 0.9 mg/dL (0.8-1.3) 12/19/21 13:16 Estimated GFR > 60 ml/min 12/19/21 13:16 BUN/Creatinine Ratio 26 % 12/19/21 13:16 Glucose 99 mg/dL (75-100) 12/19/21 13:16 POC Glucose 72 mg/dL (70-105) 12/23/21 07:51 Hemoglobin A1c 6.0 % (4-6) 12/17/21 00:54 Calcium 10.5 mg/dL (8.4-10.2) H 12/19/21 13:16 Total Bilirubin 0.40 mg/dL (0.1-1.2) 12/17/21 00:54 AST 19 units/L (5-40) 12/17/21 00:54 ALT 24 units/L (7-56) 12/17/21 00:54 Alkaline Phosphatase 127 units/L (35-129) 12/17/21 00:54 Total Protein 6.8 g/dL (6.3-8.2) 12/17/21 00:54 Albumin 4.3 g/dL (3.9-5) 12/17/21 00:54 Albumin/Globulin Ratio 1.7 % 12/17/21 00:54 Triglycerides 59 mg/dL (2-149) 12/17/21 00:54 Cholesterol 106 mg/dL (50-199) 12/17/21 00:54 LDL Cholesterol Direct 53 mg/dL (50-130) 12/17/21 00:54 HDL Cholesterol 46 mg/dL (40-59) 12/17/21 00:54 Cholesterol/HDL Ratio 2.30 % 12/17/21 00:54 TSH 1.010 mlU/mL (0.270-4.200) 12/17/21 00:54 Hep Bs Antigen Non-reactive (Negative) 12/17/21 00:54 Hep B Core IgM Ab Non-reactive (NonReactive) 12/17/21 00:54 Hepatitis C Antibody Non-reactive (NonReactive) 12/17/21 00:54 Haro/IV: Voiding Method Toilet Active Medications - Current Medications Current Medications: Generic Name Dose Route Start Last Admin Trade Name Freq PRN Reason Stop Dose Admin Acetaminophen 650 mg 12/17/21 14:00 12/22/21 21:45 Acetaminophen 325 Mg Tab PO 650 mg Q6HR PRN Administration Pain, Moderate (4-6) Albuterol 2.5 mg 12/17/21 16:00 Albuterol 2.5 Mg/3 Ml Nebu IH Q4HRT PRN Shortness Of Breath Arformoterol Tartrate 15 mcg 12/18/21 08:00 12/23/21 07:55 Arformoterol 15 Mcg/2 Ml Nebu IH 15 mcg Q12HRT JEANNA Administration Budesonide 1 mg 12/18/21 08:00 12/23/21 07:55 Budesonide 0.5 Mg/2 Ml Nebu IH 1 mg Q12HRT JEANNA Administration Calcium Carbonate/Glycine 648 mg 12/17/21 15:00 12/22/21 09:04 Calcium Carbonate 648 Mg Tab PO 648 mg DAILY JEANNA Administration Cetirizine HCl 10 mg 12/18/21 10:00 12/22/21 09:05 Cetirizine 10 Mg Tab PO 10 mg DAILY JEANNA Administration Cholecalciferol 400 unit 12/18/21 10:00 12/22/21 09:34 Cholecalciferol (Vit D3) 400 Unit Tab PO 400 unit QDAY [facility] Administration Cyanocobalamin 1,000 mcg 12/18/21 10:00 12/22/21 09:04 Cyanocobalamin (Vit B-12) 1000 Mcg Tab PO 1,000 mcg DAILY JEANNA Administration Diltiazem HCl 120 mg 12/17/21 12:00 12/22/21 09:05 Diltiazem Cd 120 Mg Cap PO 120 mg DAILY [facility] Administration Divalproex Sodium 250 mg 12/22/21 10:00 12/22/21 21:[address] 250 Mg Tab PO 250 mg BID JEANNA Administration Ferrous Sulfate 325 mg 12/17/21 15:00 12/22/21 09:05 Ferrous Sulfate 325 Mg Tab PO 325 mg DAILY JEANNA Administration Fluoxetine HCl 60 mg 12/17/21 12:00 12/22/21 09:04 Fluoxetine 20 Mg Cap PO 60 mg QDAY [facility] Administration Fluticasone Propionate 50 mcg 12/18/21 10:00 12/22/21 09:12 Fluticasone Propionate Nasal [place] 16 Gm NS 50 mcg QDAY [facility] Administration Furosemide 40 mg 12/17/21 12:00 12/22/21 09:04 Furosemide 40 Mg Tab PO 40 mg DAILY JEANNA Administration Gabapentin 300 mg 12/17/21 14:00 12/23/21 06:13 Gabapentin 300 Mg Cap PO 300 mg Q8HR JEANNA Administration Glipizide 2.5 mg 12/20/21 08:00 12/22/21 09:07 Glipizide Xl 2.5 Mg Tab PO Not Given 0800 JEANNA Levothyroxine Sodium 25 mcg 12/18/21 06:00 12/23/21 06:13 Levothyroxine 25 Mcg Tab PO 25 mcg 0600 JEANNA Administration Levothyroxine Sodium 112 mcg 12/18/21 06:00 12/23/21 06:13 Levothyroxine 112 Mcg Tab PO 112 mcg 0600 JEANNA Administration Melatonin 5 mg 12/18/21 22:40 12/23/21 00:33 Melatonin 5 Mg Tab PO 5 mg QHS PRN Administration Sleep Metformin HCl 1,000 mg 12/17/21 17:00 12/22/21 16:53 Metformin 500 Mg Tab PO Not Given BIDDIAB [facility] Metoprolol Tartrate 100 mg 12/17/21 12:00 12/22/21 21:22 Metoprolol Tartrate 50 Mg Tab PO 100 mg BID JEANNA Administration Miscellaneous Medication 10 mg 12/17/21 22:00 Loxapine Succinate [Loxapine] PO HS [facility] Miscellaneous Medication 80 mg 12/18/21 10:00 12/22/21 09:12 Telmisartan [Micardis] PO 80 mg DAILY JEANNA Administration Multivitamins/Minerals 1 each 12/18/21 10:00 12/22/21 09:04 Multivitamins,Ther W-Minerals Tab PO 1 each QDAY JEANNA Administration Olanzapine 5 mg 12/22/21 10:00 12/22/21 21:21 Olanzapine 5 Mg Tab PO 5 mg BID JEANNA Administration Pantoprazole Sodium 40 mg 12/17/21 16:00 12/22/21 09:05 Pantoprazole 40 Mg Tab PO 40 mg QDAY JEANNA Administration Rivaroxaban 20 mg 12/17/21 17:00 12/22/21 16:41 Rivaroxaban 20 Mg Tab PO 20 mg QPMDIAB JEANNA Administration Protocol Sucralfate 1 gm 12/17/21 16:30 12/22/21 21:21 Sucralfate 1 Gm Tab PO 1 gm ACHS JEANNA Administration Trazodone HCl 100 mg 12/23/21 22:00 Trazodone 100 Mg Tab PO QHS JEANNA Vitamin B Complex/Vitamin C 1 each 12/18/21 10:00 12/22/21 09:05 B Complex W/Vitamin C Tab PO 1 each QDAY JEANNA Administration Zinc Acetate/Diphenhydramine 1 applic 12/18/21 11:00 Diphenhydramine/Zinc Acet 2% Cream 28.4 Gm TP Q8H PRN Itching Ziprasidone 20 mg 12/21/21 12:30 12/23/21 02:27 Ziprasidone Mesylate 20 Mg Vial IM 20 mg Q4H PRN Administration Agitation
[2021-12-23] MEDS: FLUTICASONE PROPIONATE NASAL SPRAY 16 GM NS SCH (10:53)
[2021-12-23] MEDS: CHOLECALCIFEROL (VIT D3) 400 UNIT TAB PO SCH (10:54)
[2021-12-23] MEDS: CALCIUM CARBONATE 648 MG TAB PO SCH (10:54)
[2021-12-23] MEDS: B COMPLEX W/VITAMIN C TAB PO SCH (10:54)
[2021-12-23] MEDS: CYANOCOBALAMIN (VIT B-12) 1000 MCG TAB PO SCH (10:55)
[2021-12-23] MEDS: PANTOPRAZOLE 40 MG TAB PO SCH (10:57)
[2021-12-23] MEDS: MULTIVITAMINS,THER W-MINERALS TAB PO SCH (10:57)
[2021-12-23] MEDS: dilTIAZem CD 120 MG CAP PO SCH (10:57)
[2021-12-23] MEDS: CETIRIZINE 10 MG TAB PO SCH (10:57)
[2021-12-23] MEDS: DIVALPROEX DR 250 MG TAB PO SCH ×2 (10:57→21:17)
[2021-12-23] MEDS: metFORMIN 500 MG TAB PO SCH ×2 (11:03→17:00)
[2021-12-23] MEDS: METOPROLOL TARTRATE 50 MG TAB PO SCH ×2 (11:14→21:18)
[2021-12-23] MEDS: FLUoxetine 20 MG CAP PO SCH (11:23)
[2021-12-23] MEDS: FUROSEMIDE 40 MG TAB PO SCH (11:23)
[2021-12-23] MEDS: FERROUS SULFATE 325 MG TAB PO SCH (11:25)
[2021-12-23] MEDS: RIVAROXABAN 20 MG TAB PO SCH (17:29)
[2021-12-23] MEDS: traZODone 100 MG TAB PO SCH (21:17)
[2021-12-24] MEDS: ACETAMINOPHEN 325 MG TAB PO PRN ×2 (01:03→14:07)
[2021-12-24] MEDS: LEVOTHYROXINE 25 MCG TAB PO SCH (06:15)
[2021-12-24] MEDS: LEVOTHYROXINE 112 MCG TAB PO SCH (06:16)
[2021-12-24] MEDS: GABAPENTIN 300 MG CAP PO SCH ×3 (06:18→21:11)
--- NOTE | 2021-12-24 09:12 | Progress Note ---
Subjective Date of service: 12/24/21 Principal diagnosis: MDD Subjective Comment: 12/24/: The patient was seen today. He is calm. He states he is doing very well. 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 12/23: The patient was seen today. He is calm. He states he is doing well and mood is good. He denies depression. The patient denies any current suicidal/homicidal ideation and denies hallucinations. Increased Trazodone to 100mg po QHS. Per nurse, "Pt was agitated & very disruptive during the night. Requested & accepted Tylenol 650 mg po @ 2145 for pain on his feet. Went to bed & slept for about 1 & 1/2 hours. Pacing & constantly telling staff members that he is a team player and he is here to help everybody. At 0033 he was offered & accepted Melatonin 5 mg po prn. Med was not effective. Pt refused to follow staff directions & constantly going back & forth on the hallway disturbing other pts. At one time, he lay on the floor on the hallway. He got up went to his room & then came back & started banging on the window @ the nurses' station. Security called & Geodon 20 mg IM given @ 0230. Pt did not fall asleep unit about 0430. He remains asleep @ this moment." 12/22: The patient was seen and being talkative. The patient continues to have delusions and flight of ideas. " I came because someone stole my heart medications, [place] police set me up, I have to fight for my name, they want to destroy me." He denies any current suicidal/homicidal ideation and denies francis llucinations. Start Zyprexa 5mg po BID 12/21: The patient was seen today. he continues to be talkative and grandiose. He denies being depressed. The patient denies any current suicidal/homicidal ideation and denies hallucinations. Increased Depakote DR to 250mg po BID 12/20: The patient was seen today. He is pacing,intrusive and hyperverbal. The patient states he is doing well. " I like to help people." he states sleep and appetite is good. He denies any current suicidal/homicidal ideation and denies hallucinations. 12/19: The patient was seen today. He is calm, cooperative and polite. He says he feels great. He denies SI/HI. The patient says he doesn't feel safe in his room, because other patient's are walking in hallway at night. He denies hallucinations. 12/18 The patient was seen today. He is cooperative. He appears anxious and delusional. He is clenching his fists, and states he has to help people here. He is asking to go home. He denies SI/HI or hallucinations. Staff says the patient has been intrusive, and disorganized thoughts at times. REVIEW OF SYSTEMS Constitutional: Negative for weight loss ENT: Negative for stridor Respiratory: Negative for cough or hemoptysis All other systems reviewed and are negative MENTAL STATUS EXAMINATION General Appearance and Behavior: Age appropriate, good hygiene, wearing appropriate clothes, good eye contact, anxious, cooperative Cooperation: Participating/engaged, but Guarded Psychomotor Behavior: Psychomotor normal Mood:good Affect and affective range: Incongruent Thought Process: Circumstantial,grandiose Thought Content: Delusions Speech: normal tone and pace, flight of ideas, Suicidal Ideation: Denies Homicidal Ideation: Denies Hallucinations: Denies Delusions: Yes Impulse Control: Limited Insight and Judgment: Poor insight and judgment Memory: Limited Attention: attentive Orientation: Alert, oriented Assessment and Plan Delusional disorder Treatment Plan Patient admitted for inpatient psychiatric evaluation, medication adjustment and close monitoring The patient's behavior, mood, sleep and appetite will be closely monitored. Patient enrolled in individual and group therapeutic sessions and encouraged to attend. Patient provided with a safe and structured environment. Patient's physical health needs will be addressed by the Hospitalist. Hospitalist Consulted Labs including CBC, CMP, Lipid profile and Hemoglobin A1C levels ordered for baseline reference Social Assessment will be completed and the Key Account Executive will work with patient and family to ensure a suitable and safe disposition Medication adjustment will be made as clinically indicated Continue Olanzapine 5mg po BID Start Trazodone 100mg po QHS Usual Wellness Scientologist/Preservation: - Start Trazodone 50 mg po QHS & 50 mg po QHS PRN between 10 PM & 2 AM for insomnia - Start Melatonin 5 mg po QHS to promote circadian rhythm The patient agreed on the treatment plan, understood the risk, benefit, alternative treatment, potential consequence of no treatment, and gave informed consent. Estimated days: 1 Post hospital care: primary care provider, psychiatric provider Case staffed with Dr. Burroughs Medications and Allergies Allergies Allergy/AdvReac Type Severity Reaction Status Date / Time azithromycin Allergy Vomiting Verified 12/16/21 23:57 erythromycin base Allergy Vomiting Verified 12/16/21 23:57 Tetracyclines Allergy Vomiting Verified 12/16/21 23:57 Home Medications Medication Instructions Recorded Confirmed Last Taken Type Acetaminophen [Arthritis Pain 650 mg PO Q6HR PRN 01/23/16 12/16/21 Unknown History Relief] Albuterol Sulfate [Ventolin HFA] 2 puff IH Q6HR PRN 01/23/16 12/16/21 Unknown History Budesoni/Formotero 160-4.5(Nf) 2 puff IH BID 01/23/16 12/16/21 Unknown History [Symbicort 160-4.5 (Nf)] Cholecalciferol (Vitamin D3) 400 unit PO DAILY 01/23/16 12/16/21 Unknown History [Vitamin D-3] FLUoxetine [PROzac] 60 mg PO QDAY 01/23/16 12/16/21 Unknown History Fluticasone [Flonase] 1 spray NS QDAY 01/23/16 12/16/21 Unknown History Gabapentin [Neurontin] 300 mg PO Q8HR 01/23/16 12/16/21 Unknown History Levothyroxine [Synthroid] 25 mcg PO QAM 01/23/16 12/16/21 Unknown History Levothyroxine [Synthroid] 112 mcg PO QAM 01/23/16 12/16/21 Unknown History Metformin HCl [Glucophage] 1,000 mg PO BID 01/23/16 12/16/21 Unknown History Metoprolol Tartrate [Lopressor] 100 mg PO BID 01/23/16 12/16/21 Unknown History Pantoprazole [Protonix] 40 mg PO QDAY 01/23/16 12/16/21 Unknown History glipiZIDE [Glucotrol] 5 mg PO QDAY 01/23/16 12/16/21 Unknown History Calcium Carbonate [Calcium] 600 mg PO DAILY 12/16/21 12/16/21 Unknown History Cetirizine HCl [Allergy] 10 mg PO DAILY 12/16/21 12/16/21 Unknown History Cyanocobalamin [Vitamin B-12] 1,000 mcg PO DAILY 12/16/21 12/16/21 Unknown History Ferrous Sulfate [Slow Release Iron] 134 mg PO DAILY 12/16/21 12/16/21 Unknown History Furosemide [Lasix] 40 mg PO DAILY 12/16/21 12/16/21 Unknown History Ipratropium [Atrovent] 0.5 mg IH Q8HRT 12/16/21 12/16/21 Unknown History Loxapine Succinate [Loxapine] 10 mg PO HS 12/16/21 12/16/21 Unknown History Rivaroxaban [Xarelto] 20 mg PO QDAY 12/16/21 12/16/21 Unknown History Sucralfate [Carafate] 1 gm PO ACHS 12/16/21 12/16/21 Unknown History Telmisartan [Micardis] 80 mg PO DAILY 12/16/21 12/16/21 Unknown History Vit A/Vit C/Vit E/Zinc/Copper 1 each PO DAILY 12/16/21 12/16/21 Unknown History [Preservision Areds Tablet] Vitamin B Complex [Balanced B-50] 1 each PO DAILY 12/16/21 12/16/21 Unknown History dilTIAZem CD [Cardizem Cd] 120 mg PO DAILY 12/16/21 12/16/21 Unknown History Active Meds: Active Medications Acetaminophen (Acetaminophen 325 Mg Tab) 650 mg PO Q6HR PRN PRN Reason: Pain, Moderate (4-6) Last Admin: 12/24/21 01:03 Dose: 650 mg Albuterol (Albuterol 2.5 Mg/3 Ml Nebu) 2.5 mg IH Q4HRT PRN PRN Reason: Shortness Of Breath Arformoterol Tartrate (Arformoterol 15 Mcg/2 Ml Nebu) 15 mcg IH Q12HRT [facility] Last Admin: 12/23/21 07:55 Dose: 15 mcg Budesonide (Budesonide 0.5 Mg/2 Ml Nebu) 1 mg IH Q12HRT [facility] Last Admin: 12/23/21 07:55 Dose: 1 mg Calcium Carbonate/Glycine (Calcium Carbonate 648 Mg Tab) 648 mg PO DAILY [facility] Last Admin: 12/23/21 10:54 Dose: 648 mg Cetirizine HCl (Cetirizine 10 Mg Tab) 10 mg PO DAILY [facility] Last Admin: 12/23/21 10:57 Dose: 10 mg Cholecalciferol (Cholecalciferol (Vit D3) 400 Unit Tab) 400 unit PO QDAY [facility] Last Admin: 12/23/21 10:54 Dose: 400 unit Cyanocobalamin (Cyanocobalamin (Vit B-12) 1000 Mcg Tab) 1,000 mcg PO DAILY [facility] Last Admin: 12/23/21 10:55 Dose: 1,000 mcg Diltiazem HCl (Diltiazem Cd 120 Mg Cap) 120 mg PO DAILY [facility] Last Admin: 12/23/21 10:57 Dose: 120 mg Divalproex Sodium (Divalproex Dr 250 Mg Tab) 250 mg PO BID [facility] Last Admin: 12/23/21 21:17 Dose: 250 mg Ferrous Sulfate (Ferrous Sulfate 325 Mg Tab) 325 mg PO DAILY [facility] Last Admin: 12/23/21 11:25 Dose: 325 mg Fluoxetine HCl (Fluoxetine 20 Mg Cap) 60 mg PO QDAY [facility] Last Admin: 12/23/21 11:23 Dose: 60 mg Fluticasone Propionate (Fluticasone Propionate Nasal [place] 16 Gm) 50 mcg NS QDAY [facility] Last Admin: 12/23/21 10:53 Dose: 50 mcg Furosemide (Furosemide 40 Mg Tab) 40 mg PO DAILY [facility] Last Admin: 12/23/21 11:23 Dose: 40 mg Gabapentin (Gabapentin 300 Mg Cap) 300 mg PO Q8HR [facility] Last Admin: 12/24/21 06:18 Dose: 300 mg Glipizide (Glipizide Xl 2.5 Mg Tab) 2.5 mg PO 0800 [facility] Last Admin: 12/23/21 10:57 Dose: 2.5 mg Levothyroxine Sodium (Levothyroxine 25 Mcg Tab) 25 mcg PO 0600 [facility] Last Admin: 12/24/21 06:15 Dose: 25 mcg Levothyroxine Sodium (Levothyroxine 112 Mcg Tab) 112 mcg PO 0600 [facility] Last Admin: 12/24/21 06:16 Dose: 112 mcg Melatonin (Melatonin 5 Mg Tab) 5 mg PO QHS PRN PRN Reason: Sleep Last Admin: 12/23/21 00:33 Dose: 5 mg Metformin HCl (Metformin 500 Mg Tab) 1,000 mg PO BIDDIAB [facility] Last Admin: 12/23/21 17:00 Dose: Not Given Metoprolol Tartrate (Metoprolol Tartrate 50 Mg Tab) 100 mg PO BID [facility] Last Admin: 12/23/21 21:18 Dose: Not Given Miscellaneous Medication (Loxapine Succinate [Loxapine]) 10 mg PO [facility] Miscellaneous Medication (Telmisartan [Micardis]) 80 mg PO DAILY [facility] Last Admin: 12/23/21 10:51 Dose: 80 mg Multivitamins/Minerals (Multivitamins,Ther W-Minerals Tab) 1 each PO QDAY [facility] Last Admin: 12/23/21 10:57 Dose: 1 each Olanzapine (Olanzapine 5 Mg Tab) 5 mg PO BID [facility] Last Admin: 12/23/21 21:17 Dose: 5 mg Pantoprazole Sodium (Pantoprazole 40 Mg Tab) 40 mg PO QDAY [facility] Last Admin: 12/23/21 10:57 Dose: 40 mg Rivaroxaban (Rivaroxaban 20 Mg Tab) 20 mg PO QPMDIAB [facility]; Protocol Last Admin: 12/23/21 17:29 Dose: 20 mg Sucralfate (Sucralfate 1 Gm Tab) 1 gm PO [facility] Last Admin: 12/23/21 21:17 Dose: 1 gm Trazodone HCl (Trazodone 100 Mg Tab) 100 mg PO QHS [facility] Last Admin: 12/23/21 21:17 Dose: 100 mg Vitamin B Complex/Vitamin C (B Complex W/Vitamin C Tab) 1 each PO QDAY [facility] Last Admin: 12/23/21 10:54 Dose: 1 each Zinc Acetate/Diphenhydramine (Diphenhydramine/Zinc Acet 2% Cream 28.4 Gm) 1 applic TP Q8H PRN PRN Reason: Itching Ziprasidone (Ziprasidone Mesylate 20 Mg Vial) 20 mg IM Q4H PRN PRN Reason: Agitation Last Admin: 12/23/21 02:27 Dose: 20 mg Results - Results Labs/Vitals: Laboratory Last Values WBC 10.0 K/mm3 (4.5-11.0) 12/18/21 13:37 RBC 4.36 M/mm3 (3.65-5.03) 12/18/21 13:37 Hgb 13.5 gm/dl (11.8-15.2) 12/18/21 13:37 Hct 40.0 % (35.5-45.6) 12/18/21 13:37 MCV 92 fl (84-94) 12/18/21 13:37 MCH 31 pg (28-32) 12/18/21 13:37 MCHC 34 % (32-34) 12/18/21 13:37 RDW 14.9 % (13.2-15.2) 12/18/21 13:37 Plt Count 344 K/mm3 (140-440) 12/18/21 13:37 Lymph % (Auto) 20.3 % (13.4-35.0) 12/17/21 00:54 [place] % (Auto) 11.3 % (0.0-7.3) H 12/17/21 00:54 Eos % (Auto) 3.4 % (0.0-4.3) 12/17/21 00:54 Baso % (Auto) 0.5 % (0.0-1.8) 12/17/21 00:54 Lymph # (Auto) 1.8 K/mm3 (1.2-5.4) 12/17/21 00:54 [place] # (Auto) 1.0 K/mm3 (0.0-0.8) H 12/17/21 00:54 Eos # (Auto) 0.3 K/mm3 (0.0-0.4) 12/17/21 00:54 Baso # (Auto) 0.0 K/mm3 (0.0-0.1) 12/17/21 00:54 Seg Neutrophils % 64.5 % (40.0-70.0) 12/17/21 00:54 Seg Neutrophils # 5.7 K/mm3 (1.8-7.7) 12/17/21 00:54 Sodium 134 mmol/L (137-145) L 12/19/21 13:16 Potassium 5.2 mmol/L (3.6-5.0) H 12/19/21 13:16 Chloride 96.6 mmol/L (98-107) L 12/19/21 13:16 Carbon Dioxide 25 mmol/L (22-30) 12/19/21 13:16 Anion Gap 18 mmol/L 12/19/21 13:16 BUN 23 mg/dL (9-20) H 12/19/21 13:16 Creatinine 0.9 mg/dL (0.8-1.3) 12/19/21 13:16 Estimated GFR > 60 ml/min 12/19/21 13:16 BUN/Creatinine Ratio 26 % 12/19/21 13:16 Glucose 99 mg/dL (75-100) 12/19/21 13:16 POC Glucose 95 mg/dL (70-105) 12/24/21 06:28 Hemoglobin A1c 6.0 % (4-6) 12/17/21 00:54 Calcium 10.5 mg/dL (8.4-10.2) H 12/19/21 13:16 Total Bilirubin 0.40 mg/dL (0.1-1.2) 12/17/21 00:54 AST 19 units/L (5-40) 12/17/21 00:54 ALT 24 units/L (7-56) 12/17/21 00:54 Alkaline Phosphatase 127 units/L (35-129) 12/17/21 00:54 Total Protein 6.8 g/dL (6.3-8.2) 12/17/21 00:54 Albumin 4.3 g/dL (3.9-5) 12/17/21 00:54 Albumin/Globulin Ratio 1.7 % 12/17/21 00:54 Triglycerides 59 mg/dL (2-149) 12/17/21 00:54 Cholesterol 106 mg/dL (50-199) 12/17/21 00:54 LDL Cholesterol Direct 53 mg/dL (50-130) 12/17/21 00:54 HDL Cholesterol 46 mg/dL (40-59) 12/17/21 00:54 Cholesterol/HDL Ratio 2.30 % 12/17/21 00:54 TSH 1.010 mlU/mL (0.270-4.200) 12/17/21 00:54 Hep Bs Antigen Non-reactive (Negative) 12/17/21 00:54 Hep B Core IgM Ab Non-reactive (NonReactive) 12/17/21 00:54 Hepatitis C Antibody Non-reactive (NonReactive) 12/17/21 00:54 Last Vital Signs Temp 98.1 F 12/23/21 22:00 Pulse 71 12/23/21 22:00 Resp 18 12/24/21 01:03 BP 119/54 12/23/21 22:00 Pulse Ox 99 12/23/21 22:00
[2021-12-24] MEDS: CYANOCOBALAMIN (VIT B-12) 1000 MCG TAB PO SCH (11:27)
[2021-12-24] MEDS: MULTIVITAMINS,THER W-MINERALS TAB PO SCH (11:27)
[2021-12-24] MEDS: FERROUS SULFATE 325 MG TAB PO SCH (11:27)
[2021-12-24] MEDS: DIVALPROEX DR 250 MG TAB PO SCH ×2 (11:27→21:10)
[2021-12-24] MEDS: B COMPLEX W/VITAMIN C TAB PO SCH (11:27)
[2021-12-24] MEDS: SUCRALFATE 1 GM TAB PO SCH ×4 (11:27→21:08)
[2021-12-24] MEDS: PANTOPRAZOLE 40 MG TAB PO SCH (11:27)
[2021-12-24] MEDS: CHOLECALCIFEROL (VIT D3) 400 UNIT TAB PO SCH (11:27)
[2021-12-24] MEDS: FLUTICASONE PROPIONATE NASAL SPRAY 16 GM NS SCH (11:28)
[2021-12-24] MEDS: CALCIUM CARBONATE 648 MG TAB PO SCH (11:28)
[2021-12-24] MEDS: FUROSEMIDE 40 MG TAB PO SCH (11:28)
[2021-12-24] MEDS: FLUoxetine 20 MG CAP PO SCH (11:29)
[2021-12-24] MEDS: CETIRIZINE 10 MG TAB PO SCH (11:30)
[2021-12-24] MEDS: dilTIAZem CD 120 MG CAP PO SCH (11:31)
[2021-12-24] MEDS: TELMISARTAN 80 MG PO SCH (11:55)
[2021-12-24] MEDS: METOPROLOL TARTRATE 50 MG TAB PO SCH ×2 (11:57→21:11)
[2021-12-24] MEDS: BUDESONIDE 0.5 MG/2 ML NEBU IH SCH ×3 (12:44→21:26)
[2021-12-24] MEDS: ARFORMOTEROL 15 MCG/2 ML NEBU IH SCH ×3 (12:44→21:26)
[2021-12-24] MEDS: metFORMIN 500 MG TAB PO SCH ×2 (13:53→17:15)
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
[2021-12-24] MEDS: RIVAROXABAN 20 MG TAB PO SCH (17:13)
[2021-12-24] MEDS: traZODone 100 MG TAB PO SCH (21:10)
[2021-12-25] MEDS: MELATONIN 5 MG TAB PO PRN (00:53)
[2021-12-25] MEDS: ACETAMINOPHEN 325 MG TAB PO PRN ×3 (02:36→21:23)
[2021-12-25] MEDS: LEVOTHYROXINE 112 MCG TAB PO SCH (06:14)
[2021-12-25] MEDS: GABAPENTIN 300 MG CAP PO SCH ×3 (06:14→21:20)
[2021-12-25] MEDS: LEVOTHYROXINE 25 MCG TAB PO SCH (06:14)
[2021-12-25] MEDS: BUDESONIDE 0.5 MG/2 ML NEBU IH SCH ×2 (09:24→20:33)
[2021-12-25] MEDS: ARFORMOTEROL 15 MCG/2 ML NEBU IH SCH ×2 (09:25→20:34)
[2021-12-25] MEDS: CHOLECALCIFEROL (VIT D3) 400 UNIT TAB PO SCH (09:27)
[2021-12-25] MEDS: FUROSEMIDE 40 MG TAB PO SCH (09:27)
[2021-12-25] MEDS: CALCIUM CARBONATE 648 MG TAB PO SCH (09:27)
[2021-12-25] MEDS: metFORMIN 500 MG TAB PO SCH ×2 (09:27→16:55)
[2021-12-25] MEDS: FLUoxetine 20 MG CAP PO SCH (09:27)
[2021-12-25] MEDS: CETIRIZINE 10 MG TAB PO SCH (09:28)
[2021-12-25] MEDS: SUCRALFATE 1 GM TAB PO SCH ×4 (09:28→21:20)
[2021-12-25] MEDS: B COMPLEX W/VITAMIN C TAB PO SCH (09:28)
[2021-12-25] MEDS: dilTIAZem CD 120 MG CAP PO SCH (09:28)
[2021-12-25] MEDS: CYANOCOBALAMIN (VIT B-12) 1000 MCG TAB PO SCH (09:28)
[2021-12-25] MEDS: DIVALPROEX DR 250 MG TAB PO SCH (09:28)
[2021-12-25] MEDS: FERROUS SULFATE 325 MG TAB PO SCH (09:28)
[2021-12-25] MEDS: MULTIVITAMINS,THER W-MINERALS TAB PO SCH (09:28)
[2021-12-25] MEDS: FLUTICASONE PROPIONATE NASAL SPRAY 16 GM NS SCH (09:29)
[2021-12-25] MEDS: PANTOPRAZOLE 40 MG TAB PO SCH (09:29)
[2021-12-25] MEDS: TELMISARTAN 80 MG PO SCH (09:30)
[2021-12-25] MEDS: METOPROLOL TARTRATE 50 MG TAB PO SCH ×2 (09:30→21:21)
--- NOTE | 2021-12-25 10:36 | Progress Note ---
Subjective Date of service: 12/25/21 Principal diagnosis: MDD Subjective Comment: 12/25: The patient was seen today. The patient continues to be talkative and paranoid. He is focused on discharge " I have things to do." He denies any current suicidal/homicidal ideation and denies hallucinations. Increased Depakote to 500mg po BId 12/24/: The patient was seen today. He is calm. He states he is doing very well. 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 12/23: The patient was seen today. He is calm. He states he is doing well and mood is good. He denies depression. The patient denies any current suicidal/homicidal ideation and denies hallucinations. Increased Trazodone to 100mg po QHS. Per nurse, "Pt was agitated & very disruptive during the night. Requested & accepted Tylenol 650 mg po @ 2145 for pain on his feet. Went to bed & slept for about 1 & 1/2 hours. Pacing & constantly telling staff members that he is a team player and he is here to help everybody. At 0033 he was offered & accepted Melatonin 5 mg po prn. Med was not effective. Pt refused to follow staff directions & constantly going back & forth on the hallway disturbing other pts. At one time, he lay on the floor on the hallway. He got up went to his room & then came back & started banging on the window @ the nurses' station. Security called & Geodon 20 mg IM given @ 0230. Pt did not fall asleep unit about 0430. He remains asleep @ this moment." 12/22: The patient was seen and being talkative. The patient continues to have delusions and flight of ideas. " I came because someone stole my heart medications, [place] police set me up, I have to fight for my name, they want to destroy me." He denies any current suicidal/homicidal ideation and denies hallucinations. Start Zyprexa 5mg po BID 12/21: The patient was seen today. he continues to be talkative and grandiose. He denies being depressed. The patient denies any current suicidal/homicidal ideation and denies hallucinations. Increased Depakote DR gill 250mg po BID 12/20: The patient was seen today. He is pacing,intrusive and hyperverbal. The patient states he is doing well. " I like to help people." he states sleep and appetite is good. He denies any current suicidal/homicidal ideation and denies hallucinations. 12/19: The patient was seen today. He is calm, cooperative and polite. He says he feels great. He denies SI/HI. The patient says he doesn't feel safe in his room, because other patient's are walking in hallway at night. He denies hallucinations. 12/18 The patient was seen today. He is cooperative. He appears anxious and delusional. He is clenching his fists, and states he has to help people here. He is asking to go home. He denies SI/HI or hallucinations. Staff says the patient has been intrusive, and disorganized thoughts at times. REVIEW OF SYSTEMS Constitutional: Negative for weight loss ENT: Negative for stridor Respiratory: Negative for cough or hemoptysis All other systems reviewed and are negative MENTAL STATUS EXAMINATION General Appearance and Behavior: Age appropriate, good hygiene, wearing appropriate clothes, good eye contact, anxious, cooperative Cooperation: Participating/engaged, but Guarded Psychomotor Behavior: Psychomotor normal Mood:"good" Affect and affective range: Incongruent Thought Process: Circumstantial,grandiose Thought Content: paranoid Speech: normal tone and pace, flight of ideas, Suicidal Ideation: Denies Homicidal Ideation: Denies Hallucinations: Denies Delusions: Yes Impulse Control: Limited Insight and Judgment: Poor insight and judgment Memory: Limited Attention: attentive Orientation: Alert, oriented Assessment and Plan Delusional disorder Treatment Plan Patient admitted for inpatient psychiatric evaluation, medication adjustment and close monitoring The patient's behavior, mood, sleep and appetite will be closely monitored. Patient enrolled in individual and group therapeutic sessions and encouraged to attend. Patient provided with a safe and structured environment. Patient's physical health needs will be addressed by the Hospitalist. Hospitalist Consulted Labs including CBC, CMP, Lipid profile and Hemoglobin A1C levels ordered for baseline reference Social Assessment will be completed and the Camp Program Director will work with patient and family to ensure a suitable and safe disposition Medication adjustment will be made as clinically indicated Continue Olanzapine 5mg po BID Start Trazodone 100mg po QHS Usual Wellness Scientology/Preservation: - Start Trazodone 50 mg po QHS & 50 mg po QHS PRN between 10 PM & 2 AM for insomnia - Start Melatonin 5 mg po QHS to promote circadian rhythm The patient agreed on the treatment plan, understood the risk, benefit, alternative treatment, potential consequence of no treatment, and gave informed consent. Estimated days: 1 Post hospital care: primary care provider, psychiatric provider Case staffed with Dr. Burroughs Medications and Allergies Medications and Allergies Allergies Allergy/AdvReac Type Severity Reaction Status Date / Time azithromycin Allergy Vomiting Verified 12/16/21 23:57 erythromycin base Allergy Vomiting Verified 12/16/21 23:57 Tetracyclines Allergy Vomiting Verified 12/16/21 23:57 Home Medications Medication Instructions Recorded Confirmed Last Taken Type Acetaminophen [Arthritis Pain 650 mg PO Q6HR PRN 01/23/16 12/16/21 Unknown History Relief] Albuterol Sulfate [Ventolin HFA] 2 puff IH Q6HR PRN 01/23/16 12/16/21 Unknown History Budesoni/Formotero 160-4.5(Nf) 2 puff IH BID 01/23/16 12/16/21 Unknown History [Symbicort 160-4.5 (Nf)] Cholecalciferol (Vitamin D3) 400 unit PO DAILY 01/23/16 12/16/21 Unknown History [Vitamin D-3] FLUoxetine [PROzac] 60 mg PO QDAY 01/23/16 12/16/21 Unknown History Fluticasone [Flonase] 1 spray NS QDAY 01/23/16 12/16/21 Unknown History Gabapentin [Neurontin] 300 mg PO Q8HR 01/23/16 12/16/21 Unknown History Levothyroxine [Synthroid] 25 mcg PO QAM 01/23/16 12/16/21 Unknown History Levothyroxine [Synthroid] 112 mcg PO QAM 01/23/16 12/16/21 Unknown History Metformin HCl [Glucophage] 1,000 mg PO BID 01/23/16 12/16/21 Unknown History Metoprolol Tartrate [Lopressor] 100 mg PO BID 01/23/16 12/16/21 Unknown History Pantoprazole [Protonix] 40 mg PO QDAY 01/23/16 12/16/21 Unknown History glipiZIDE [Glucotrol] 5 mg PO QDAY 01/23/16 12/16/21 Unknown History Calcium Carbonate [Calcium] 600 mg PO DAILY 12/16/21 12/16/21 Unknown History Cetirizine HCl [Allergy] 10 mg PO DAILY 12/16/21 12/16/21 Unknown History Cyanocobalamin [Vitamin B-12] 1,000 mcg PO DAILY 12/16/21 12/16/21 Unknown History Ferrous Sulfate [Slow Release Iron] 134 mg PO DAILY 12/16/21 12/16/21 Unknown History Furosemide [Lasix] 40 mg PO DAILY 12/16/21 12/16/21 Unknown History Ipratropium [Atrovent] 0.5 mg IH Q8HRT 12/16/21 12/16/21 Unknown History Loxapine Succinate [Loxapine] 10 mg PO HS 12/16/21 12/16/21 Unknown History Rivaroxaban [Xarelto] 20 mg PO QDAY 12/16/21 12/16/21 Unknown History Sucralfate [Carafate] 1 gm PO ACHS 12/16/21 12/16/21 Unknown History Telmisartan [Micardis] 80 mg PO DAILY 12/16/21 12/16/21 Unknown History Vit A/Vit C/Vit E/Zinc/Copper 1 each PO DAILY 12/16/21 12/16/21 Unknown History [Preservision Areds Tablet] Vitamin B Complex [Balanced B-50] 1 each PO DAILY 12/16/21 12/16/21 Unknown History dilTIAZem CD [Cardizem Cd] 120 mg PO DAILY 12/16/21 12/16/21 Unknown History Active Meds: Active Medications Acetaminophen (Acetaminophen 325 Mg Tab) 650 mg PO Q6HR PRN PRN Reason: Pain, Moderate (4-6) Last Admin: 12/25/21 02:36 Dose: 650 mg Albuterol (Albuterol 2.5 Mg/3 Ml Nebu) 2.5 mg IH Q4HRT PRN PRN Reason: Shortness Of Breath Arformoterol Tartrate (Arformoterol 15 Mcg/2 Ml Nebu) 15 mcg IH Q12HRT JEANNA Last Admin: 12/25/21 09:25 Dose: 15 mcg Budesonide (Budesonide 0.5 Mg/2 Ml Nebu) 1 mg IH Q12HRT JEANNA Last Admin: 12/25/21 09:24 Dose: 1 mg Calcium Carbonate/Glycine (Calcium Carbonate 648 Mg Tab) 648 mg PO DAILY [facility] Last Admin: 12/25/21 09:27 Dose: 648 mg Cetirizine HCl (Cetirizine 10 Mg Tab) 10 mg PO DAILY [facility] Last Admin: 12/25/21 09:28 Dose: 10 mg Cholecalciferol (Cholecalciferol (Vit D3) 400 Unit Tab) 400 unit PO QDAY [facility] Last Admin: 12/25/21 09:27 Dose: 400 unit Cyanocobalamin (Cyanocobalamin (Vit B-12) 1000 Mcg Tab) 1,000 mcg PO DAILY [facility] Last Admin: 12/25/21 09:28 Dose: 1,000 mcg Diltiazem HCl (Diltiazem Cd 120 Mg Cap) 120 mg PO DAILY [facility] Last Admin: 12/25/21 09:28 Dose: 120 mg Divalproex Sodium (Divalproex Dr 250 Mg Tab) 250 mg PO BID [facility] Last Admin: 12/25/21 09:28 Dose: 250 mg Ferrous Sulfate (Ferrous Sulfate 325 Mg Tab) 325 mg PO DAILY [facility] Last Admin: 12/25/21 09:28 Dose: 325 mg Fluoxetine HCl (Fluoxetine 20 Mg Cap) 60 mg PO QDAY [facility] Last Admin: 12/25/21 09:27 Dose: 60 mg Fluticasone Propionate (Fluticasone Propionate Nasal [place] 16 Gm) 50 mcg NS QDAY [facility] Last Admin: 12/25/21 09:29 Dose: 50 mcg Furosemide (Furosemide 40 Mg Tab) 40 mg PO DAILY [facility] Last Admin: 12/25/21 09:27 Dose: 40 mg Gabapentin (Gabapentin 300 Mg Cap) 300 mg PO Q8HR [facility] Last Admin: 12/25/21 06:14 Dose: 300 mg Levothyroxine Sodium (Levothyroxine 25 Mcg Tab) 25 mcg PO 0600 [facility] Last Admin: 12/25/21 06:14 Dose: 25 mcg Levothyroxine Sodium (Levothyroxine 112 Mcg Tab) 112 mcg PO 0600 [facility] Last Admin: 12/25/21 06:14 Dose: 112 mcg Melatonin (Melatonin 5 Mg Tab) 5 mg PO QHS PRN PRN Reason: Sleep Last Admin: 12/25/21 00:53 Dose: 5 mg Metformin HCl (Metformin 500 Mg Tab) 1,000 mg PO BIDDIAB [facility] Last Admin: 12/25/21 09:27 Dose: 1,000 mg Metoprolol Tartrate (Metoprolol Tartrate 50 Mg Tab) 100 mg PO BID [facility] Last Admin: 12/25/21 09:30 Dose: Not Given Miscellaneous Medication (Telmisartan [Micardis]) 80 mg PO DAILY [facility] Last Admin: 12/25/21 09:30 Dose: Not Given Multivitamins/Minerals (Multivitamins,Ther W-Minerals Tab) 1 each PO QDAY [facility] Last Admin: 12/25/21 09:28 Dose: 1 each Olanzapine (Olanzapine 5 Mg Tab) 5 mg PO BID [facility] Last Admin: 12/25/21 09:27 Dose: 5 mg Pantoprazole Sodium (Pantoprazole 40 Mg Tab) 40 mg PO QDAY [facility] Last Admin: 12/25/21 09:29 Dose: 40 mg Rivaroxaban (Rivaroxaban 20 Mg Tab) 20 mg PO QPMDIAB [facility]; Protocol Last Admin: 12/24/21 17:13 Dose: 20 mg Sucralfate (Sucralfate 1 Gm Tab) [address] [facility] Last Admin: 12/25/21 09:28 Dose: 1 gm Trazodone HCl (Trazodone 100 Mg Tab) 100 mg PO QHS [facility] Last Admin: 12/24/21 21:10 Dose: Not Given Vitamin B Complex/Vitamin C (B Complex W/Vitamin C Tab) 1 each PO QDAY [facility] Last Admin: 12/25/21 09:28 Dose: 1 each Zinc Acetate/Diphenhydramine (Diphenhydramine/Zinc Acet 2% Cream 28.4 Gm) 1 applic TP Q8H PRN PRN Reason: Itching Ziprasidone (Ziprasidone Mesylate 20 Mg Vial) 20 mg IM Q4H PRN PRN Reason: Agitation Last Admin: 12/23/21 02:27 Dose: 20 mg Results - Results Labs/Vitals: Laboratory Last Values WBC 10.0 K/mm3 (4.5-11.0) 12/18/21 13:37 RBC 4.36 M/mm3 (3.65-5.03) 12/18/21 13:37 Hgb 13.5 gm/dl (11.8-15.2) 12/18/21 13:37 Hct 40.0 % (35.5-45.6) 12/18/21 13:37 MCV 92 fl (84-94) 12/18/21 13:37 MCH 31 pg (28-32) 12/18/21 13:37 MCHC 34 % (32-34) 12/18/21 13:37 RDW 14.9 % (13.2-15.2) 12/18/21 13:37 Plt Count 344 K/mm3 (140-440) 12/18/21 13:37 Lymph % (Auto) 20.3 % (13.4-35.0) 12/17/21 00:54 [place] % (Auto) 11.3 % (0.0-7.3) H 12/17/21 00:54 Eos % (Auto) 3.4 % (0.0-4.3) 12/17/21 00:54 Baso % (Auto) 0.5 % (0.0-1.8) 12/17/21 00:54 Lymph # (Auto) 1.8 K/mm3 (1.2-5.4) 12/17/21 00:54 [place] # (Auto) 1.0 K/mm3 (0.0-0.8) H 12/17/21 00:54 Eos # (Auto) 0.3 K/mm3 (0.0-0.4) 12/17/21 00:54 Baso # (Auto) 0.0 K/mm3 (0.0-0.1) 12/17/21 00:54 Seg Neutrophils % 64.5 % (40.0-70.0) 12/17/21 00:54 Seg Neutrophils # 5.7 K/mm3 (1.8-7.7) 12/17/21 00:54 Sodium 134 mmol/L (137-145) L 12/19/21 13:16 Potassium 5.2 mmol/L (3.6-5.0) H 12/19/21 13:16 Chloride 96.6 mmol/L (98-107) L 12/19/21 13:16 Carbon Dioxide 25 mmol/L (22-30) 12/19/21 13:16 Anion Gap 18 mmol/L 12/19/21 13:16 BUN 23 mg/dL (9-20) H 12/19/21 13:16 Creatinine 0.9 mg/dL (0.8-1.3) 12/19/21 13:16 Estimated GFR > 60 ml/min 12/19/21 13:16 BUN/Creatinine Ratio 26 % 12/19/21 13:16 Glucose 99 mg/dL (75-100) 12/19/21 13:16 POC Glucose 149 mg/dL (70-105) H 12/25/21 07:13 Hemoglobin A1c 6.0 % (4-6) 12/17/21 00:54 Calcium 10.5 mg/dL (8.4-10.2) H 12/19/21 13:16 Total Bilirubin 0.40 mg/dL (0.1-1.2) 12/17/21 00:54 AST 19 units/L (5-40) 12/17/21 00:54 ALT 24 units/L (7-56) 12/17/21 00:54 Alkaline Phosphatase 127 units/L (35-129) 12/17/21 00:54 Total Protein 6.8 g/dL (6.3-8.2) 12/17/21 00:54 Albumin 4.3 g/dL (3.9-5) 12/17/21 00:54 Albumin/Globulin Ratio 1.7 % 12/17/21 00:54 Triglycerides 59 mg/dL (2-149) 12/17/21 00:54 Cholesterol 106 mg/dL (50-199) 12/17/21 00:54 LDL Cholesterol Direct 53 mg/dL (50-130) 12/17/21 00:54 HDL Cholesterol 46 mg/dL (40-59) 12/17/21 00:54 Cholesterol/HDL Ratio 2.30 % 12/17/21 00:54 TSH 1.010 mlU/mL (0.270-4.200) 12/17/21 00:54 Hep Bs Antigen Non-reactive (Negative) 12/17/21 00:54 Hep B Core IgM Ab Non-reactive (NonReactive) 12/17/21 00:54 Hepatitis C Antibody Non-reactive (NonReactive) 12/17/21 00:54 Last Vital Signs Temp 97.4 F L 12/25/21 07:58 Pulse 86 12/25/21 09:30 Resp 18 12/25/21 09:28 BP 141/85 12/25/21 09:30 Pulse Ox 100 12/25/21 07:58
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
[2021-12-25] MEDS: RIVAROXABAN 20 MG TAB PO SCH (16:55)
[2021-12-25] MEDS: DIVALPROEX DR 500 MG TAB PO SCH (21:20)
[2021-12-25] MEDS: traZODone 100 MG TAB PO SCH (21:20)
[2021-12-26] MEDS: LEVOTHYROXINE 112 MCG TAB PO SCH (06:12)
[2021-12-26] MEDS: GABAPENTIN 300 MG CAP PO SCH ×3 (06:12→21:02)
[2021-12-26] MEDS: LEVOTHYROXINE 25 MCG TAB PO SCH (06:12)
[2021-12-26] MEDS: ARFORMOTEROL 15 MCG/2 ML NEBU IH SCH ×2 (08:16→20:10)
[2021-12-26] MEDS: BUDESONIDE 0.5 MG/2 ML NEBU IH SCH ×2 (08:16→20:11)
[2021-12-26] MEDS: CYANOCOBALAMIN (VIT B-12) 1000 MCG TAB PO SCH (09:10)
[2021-12-26] MEDS: FUROSEMIDE 40 MG TAB PO SCH (09:10)
[2021-12-26] MEDS: CHOLECALCIFEROL (VIT D3) 400 UNIT TAB PO SCH (09:10)
[2021-12-26] MEDS: DIVALPROEX DR 500 MG TAB PO SCH ×2 (09:10→21:03)
[2021-12-26] MEDS: PANTOPRAZOLE 40 MG TAB PO SCH (09:11)
[2021-12-26] MEDS: FLUoxetine 20 MG CAP PO SCH (09:11)
[2021-12-26] MEDS: CETIRIZINE 10 MG TAB PO SCH (09:11)
[2021-12-26] MEDS: FERROUS SULFATE 325 MG TAB PO SCH (09:11)
[2021-12-26] MEDS: dilTIAZem CD 120 MG CAP PO SCH (09:11)
[2021-12-26] MEDS: metFORMIN 500 MG TAB PO SCH ×2 (09:11→17:47)
[2021-12-26] MEDS: MULTIVITAMINS,THER W-MINERALS TAB PO SCH (09:11)
[2021-12-26] MEDS: B COMPLEX W/VITAMIN C TAB PO SCH (09:11)
[2021-12-26] MEDS: CALCIUM CARBONATE 648 MG TAB PO SCH (09:11)
[2021-12-26] MEDS: TELMISARTAN 80 MG PO SCH (09:12)
[2021-12-26] MEDS: METOPROLOL TARTRATE 50 MG TAB PO SCH ×2 (09:12→21:04)
[2021-12-26] MEDS: FLUTICASONE PROPIONATE NASAL SPRAY 16 GM NS SCH (09:13)
--- NOTE | 2021-12-26 09:16 | Progress Note ---
Subjective Date of service: 12/26/21 Principal diagnosis: MDD Subjective Comment: 12/26:The patient was seen at breakfast today. He is calm, alert and oriented x3. He denies depression; " I'm thinking of things I need to do when I get home." He denies any current suicidal/homicidal ideation and denies hallucinations. No changes made today. 12/25: The patient was seen today. The patient continues to be talkative and paranoid. He is focused on discharge " I have things to do." He denies any current suicidal/homicidal ideation and denies hallucinations. Increased Depakote to 500mg po BId 12/24/: The patient was seen today. He is calm. He states he is doing very well. 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 12/23: The patient was seen today. He is calm. He states he is doing well and mood is good. He denies depression. The patient denies any current suicidal/homicidal ideation and denies hallucinations. Increased Trazodone to 100mg po QHS. Per nurse, "Pt was agitated & very disruptive during the night. Requested & accepted Tylenol 650 mg po @ 2145 for pain on his feet. Went to bed & slept for about 1 & 1/2 hours. Pacing & constantly telling staff members that he is a team player and he is here to help everybody. At 0033 he was offered & accepted Melatonin 5 mg po prn. Med was not effective. Pt refused to follow staff directions & constantly going back & forth on the hallway disturbing other pts. At one time, he lay on the floor on the hallway. He got up went to his room & then came back & started banging on the window @ the nurses' station. Security called & Geodon 20 mg IM given @ 0230. Pt did not fall asleep unit about 0430. He remains asleep @ this moment." 12/22: The patient was seen and being talkative. The patient continues to have delusions and flight of ideas. " I came because someone stole my heart medications, [place] police set me up, I have to fight for my name, they want to destroy me." He denies any current suicidal/homicidal ideation and denies hallucinations. Start Zyprexa 5mg po BID 12/21: The patient was seen today. he continues to be talkative and grandiose. He denies being depressed. The patient denies any current suicidal/homicidal ideation and denies hallucinations. Increased Depakote DR to 250mg po BID 12/20: The patient was seen today. He is pacing,intrusive and hyperverbal. The patient states he is doing well. " I like to help people." he states sleep and appetite is good. He denies any current suicidal/homicidal ideation and denies hallucinations. 12/19: The patient was seen today. He is calm, cooperative and polite. He says he feels great. He denies SI/HI. The patient says he doesn't feel safe in his room, because other patient's are walking in hallway at night. He denies hallucinations. 12/18 The patient was seen today. He is cooperative. He appears anxious and delusional. He is clenching his fists, and states he has to help people here. He is asking to go home. He denies SI/HI or hallucinations. Staff says the patient has been intrusive, and disorganized thoughts at times. REVIEW OF SYSTEMS Constitutional: Negative for weight loss ENT: Negative for stridor Respiratory: Negative for cough or hemoptysis All other systems reviewed and are negative MENTAL STATUS EXAMINATION General Appearance and Behavior: Age appropriate, good hygiene, wearing appropriate clothes, good eye contact, anxious, cooperative Cooperation: Participating/engaged, but Guarded Psychomotor Behavior: Psychomotor normal Mood:"good" Affect and affective range: congruent Thought Process: Goal directed Thought Content: Reality oriented Speech: normal tone and pace Suicidal Ideation: Denies Homicidal Ideation: Denies Hallucinations: Denies Delusions: None Impulse Control: Limited Insight and Judgment: Limited insight and judgment Memory: Limited Attention: attentive Orientation: Alert, oriented Assessment and Plan Delusional disorder Treatment Plan Patient admitted for inpatient psychiatric evaluation, medication adjustment and close monitoring The patient's behavior, mood, sleep and appetite will be closely monitored. Patient enrolled in individual and group therapeutic sessions and encouraged to attend. Patient provided with a safe and structured environment. Patient's physical health needs will be addressed by the Hospitalist. Hospitalist Consulted Labs including CBC, CMP, Lipid profile and Hemoglobin A1C levels ordered for baseline reference Social Assessment will be completed and the Head Automatic Sawyer will work with patient and family to ensure a suitable and safe disposition Medication adjustment will be made as clinically indicated Continue Olanzapine 5mg po BID Continue Trazodone 100mg po QHS Usual Wellness Mormon/Preservation: - Start Trazodone 50 mg po QHS & 50 mg po QHS PRN between 10 PM & 2 AM for insomnia - Start Melatonin 5 mg po QHS to promote circadian rhythm The patient agreed on the treatment plan, understood the risk, benefit, alternative treatment, potential consequence of no treatment, and gave informed consent. Estimated days: 1 Post hospital care: primary care provider, psychiatric provider Case staffed with Dr. Burroughs Medications and Allergies Medications and Allergies Allergies Allergy/AdvReac Type Severity Reaction Status Date / Time azithromycin Allergy Vomiting Verified 12/16/21 23:57 erythromycin base Allergy Vomiting Verified 12/16/21 23:57 Tetracyclines Allergy Vomiting Verified 12/16/21 23:57 Home Medications Medication Instructions Recorded Confirmed Last Taken Type Acetaminophen [Arthritis Pain 650 mg PO Q6HR PRN 01/23/16 12/16/21 Unknown History Relief] Albuterol Sulfate [Ventolin HFA] 2 puff IH Q6HR PRN 01/23/16 12/16/21 Unknown History Budesoni/Formotero 160-4.5(Nf) 2 puff IH BID 01/23/16 12/16/21 Unknown History [Symbicort 160-4.5 (Nf)] Cholecalciferol (Vitamin D3) 400 unit PO DAILY 01/23/16 12/16/21 Unknown History [Vitamin D-3] FLUoxetine [PROzac] 60 mg PO QDAY 01/23/16 12/16/21 Unknown History Fluticasone [Flonase] 1 spray NS QDAY 01/23/16 12/16/21 Unknown History Gabapentin [Neurontin] 300 mg PO Q8HR 01/23/16 12/16/21 Unknown History Levothyroxine [Synthroid] 25 mcg PO QAM 01/23/16 12/16/21 Unknown History Levothyroxine [Synthroid] 112 mcg PO QAM 01/23/16 12/16/21 Unknown History Metformin HCl [Glucophage] 1,000 mg PO BID 01/23/16 12/16/21 Unknown History Metoprolol Tartrate [Lopressor] 100 mg PO BID 01/23/16 12/16/21 Unknown History Pantoprazole [Protonix] 40 mg PO QDAY 01/23/16 12/16/21 Unknown History glipiZIDE [Glucotrol] 5 mg PO QDAY 01/23/16 12/16/21 Unknown History Calcium Carbonate [Calcium] 600 mg PO DAILY 12/16/21 12/16/21 Unknown History Cetirizine HCl [Allergy] 10 mg PO DAILY 12/16/21 12/16/21 Unknown History Cyanocobalamin [Vitamin B-12] 1,000 mcg PO DAILY 12/16/21 12/16/21 Unknown History Ferrous Sulfate [Slow Release Iron] 134 mg PO DAILY 12/16/21 12/16/21 Unknown History Furosemide [Lasix] 40 mg PO DAILY 12/16/21 12/16/21 Unknown History Ipratropium [Atrovent] 0.5 mg IH Q8HRT 12/16/21 12/16/21 Unknown History Loxapine Succinate [Loxapine] 10 mg PO HS 12/16/21 12/16/21 Unknown History Rivaroxaban [Xarelto] 20 mg PO QDAY 12/16/21 12/16/21 Unknown History Sucralfate [Carafate] 1 gm PO ACHS 12/16/21 12/16/21 Unknown History Telmisartan [Micardis] 80 mg PO DAILY 12/16/21 12/16/21 Unknown History Vit A/Vit C/Vit E/Zinc/Copper 1 each PO DAILY 12/16/21 12/16/21 Unknown History [Preservision Areds Tablet] Vitamin B Complex [Balanced B-50] 1 each PO DAILY 12/16/21 12/16/21 Unknown History dilTIAZem CD [Cardizem Cd] 120 mg PO DAILY 12/16/21 12/16/21 Unknown History Active Meds: Active Medications Acetaminophen (Acetaminophen 325 Mg Tab) 650 mg PO Q6HR PRN PRN Reason: Pain, Moderate (4-6) Last Admin: 12/25/21 21:23 Dose: 650 mg Albuterol (Albuterol 2.5 Mg/3 Ml Nebu) 2.5 mg IH Q4HRT PRN PRN Reason: Shortness Of Breath Arformoterol Tartrate (Arformoterol 15 Mcg/2 Ml Nebu) 15 mcg IH Q12HRT [facility] Last Admin: 12/26/21 08:16 Dose: 15 mcg Budesonide (Budesonide 0.5 Mg/2 Ml Nebu) 1 mg IH Q12HRT [facility] Last Admin: 12/26/21 08:16 Dose: 1 mg Calcium Carbonate/Glycine (Calcium Carbonate 648 Mg Tab) 648 mg PO DAILY [facility] Last Admin: 12/25/21 09:27 Dose: 648 mg Cetirizine HCl (Cetirizine 10 Mg Tab) 10 mg PO DAILY [facility] Last Admin: 12/25/21 09:28 Dose: 10 mg Cholecalciferol (Cholecalciferol (Vit D3) 400 Unit Tab) 400 unit PO QDAY [facility] Last Admin: 12/25/21 09:27 Dose: 400 unit Cyanocobalamin (Cyanocobalamin (Vit B-12) 1000 Mcg Tab) 1,000 mcg PO DAILY [facility] Last Admin: 12/25/21 09:28 Dose: 1,000 mcg Diltiazem HCl (Diltiazem Cd 120 Mg Cap) 120 mg PO DAILY [facility] Last Admin: 12/25/21 09:28 Dose: 120 mg Divalproex Sodium (Divalproex Dr 500 Mg Tab) 500 mg PO BID [facility] Last Admin: 12/25/21 21:20 Dose: 500 mg Ferrous Sulfate (Ferrous Sulfate 325 Mg Tab) 325 mg PO DAILY [facility] Last Admin: 12/25/21 09:28 Dose: 325 mg Fluoxetine HCl (Fluoxetine 20 Mg Cap) 60 mg PO QDAY [facility] Last Admin: 12/25/21 09:27 Dose: 60 mg Fluticasone Propionate (Fluticasone Propionate Nasal [place] 16 Gm) 50 mcg NS QDAY [facility] Last Admin: 12/25/21 09:29 Dose: 50 mcg Furosemide (Furosemide 40 Mg Tab) 40 mg PO DAILY [facility] Last Admin: 12/25/21 09:27 Dose: 40 mg Gabapentin (Gabapentin 300 Mg Cap) 300 mg PO Q8HR [facility] Last Admin: 12/26/21 06:12 Dose: 300 mg Levothyroxine Sodium (Levothyroxine 25 Mcg Tab) 25 mcg PO 0600 [facility] Last Admin: 12/26/21 06:12 Dose: 25 mcg Levothyroxine Sodium (Levothyroxine 112 Mcg Tab) 112 mcg PO 0600 [facility] Last Admin: 12/26/21 06:12 Dose: 112 mcg Melatonin (Melatonin 5 Mg Tab) 5 mg PO QHS PRN PRN Reason: Sleep Last Admin: 12/25/21 00:53 Dose: 5 mg Metformin HCl (Metformin 500 Mg Tab) 1,000 mg PO BIDDIAB [facility] Last Admin: 12/25/21 16:55 Dose: 1,000 mg Metoprolol Tartrate (Metoprolol Tartrate 50 Mg Tab) 100 mg PO BID [facility] Last Admin: 12/25/21 21:21 Dose: 100 mg Miscellaneous Medication (Telmisartan [Micardis]) 80 mg PO DAILY [facility] Last Admin: 12/25/21 09:30 Dose: Not Given Multivitamins/Minerals (Multivitamins,Ther W-Minerals Tab) 1 each PO QDAY [facility] Last Admin: 12/25/21 09:28 Dose: 1 each Olanzapine (Olanzapine 5 Mg Tab) 5 mg PO BID [facility] Last Admin: 12/25/21 21:20 Dose: 5 mg Pantoprazole Sodium (Pantoprazole 40 Mg Tab) 40 mg PO QDAY [facility] Last Admin: 12/25/21 09:29 Dose: 40 mg Rivaroxaban (Rivaroxaban 20 Mg Tab) 20 mg PO QPMDIAB [facility]; Protocol Last Admin: 12/25/21 16:55 Dose: 20 mg Sucralfate (Sucralfate 1 Gm Tab) 1 gm PO ACHS [facility] Last Admin: 12/25/21 21:20 Dose: 1 gm Trazodone HCl (Trazodone 100 Mg Tab) 100 mg PO QHS [facility] Last Admin: 12/25/21 21:20 Dose: 100 mg Vitamin B Complex/Vitamin C (B Complex W/Vitamin C Tab) 1 each PO QDAY [facility] Last Admin: 12/25/21 09:28 Dose: 1 each Zinc Acetate/Diphenhydramine (Diphenhydramine/Zinc Acet 2% Cream 28.4 Gm) 1 applic TP Q8H PRN PRN Reason: Itching Ziprasidone (Ziprasidone Mesylate 20 Mg Vial) 20 mg IM Q4H PRN PRN Reason: Agitation Last Admin: 12/23/21 02:27 Dose: 20 mg Results - Results Labs/Vitals: Laboratory Last Values WBC 10.0 K/mm3 (4.5-11.0) 12/18/21 13:37 RBC 4.36 M/mm3 (3.65-5.03) 12/18/21 13:37 Hgb 13.5 gm/dl (11.8-15.2) 12/18/21 13:37 Hct 40.0 % (35.5-45.6) 12/18/21 13:37 MCV 92 fl (84-94) 12/18/21 13:37 MCH 31 pg (28-32) 12/18/21 13:37 MCHC 34 % (32-34) 12/18/21 13:37 RDW 14.9 % (13.2-15.2) 12/18/21 13:37 Plt Count 344 K/mm3 (140-440) 12/18/21 13:37 Lymph % (Auto) 20.3 % (13.4-35.0) 12/17/21 00:54 [place] % (Auto) 11.3 % (0.0-7.3) H 12/17/21 00:54 Eos % (Auto) 3.4 % (0.0-4.3) 12/17/21 00:54 Baso % (Auto) 0.5 % (0.0-1.8) 12/17/21 00:54 Lymph # (Auto) 1.8 K/mm3 (1.2-5.4) 12/17/21 00:54 [place] # (Auto) 1.0 K/mm3 (0.0-0.8) H 12/17/21 00:54 Eos # (Auto) 0.3 K/mm3 (0.0-0.4) 12/17/21 00:54 Baso # (Auto) 0.0 K/mm3 (0.0-0.1) 12/17/21 00:54 Seg Neutrophils % 64.5 % (40.0-70.0) 12/17/21 00:54 Seg Neutrophils # 5.7 K/mm3 (1.8-7.7) 12/17/21 00:54 Sodium 134 mmol/L (137-145) L 12/19/21 13:16 Potassium 5.2 mmol/L (3.6-5.0) H 12/19/21 13:16 Chloride 96.6 mmol/L (98-107) L 12/19/21 13:16 Carbon Dioxide 25 mmol/L (22-30) 12/19/21 13:16 Anion Gap 18 mmol/L 12/19/21 13:16 BUN 23 mg/dL (9-20) H 12/19/21 13:16 Creatinine 0.9 mg/dL (0.8-1.3) 12/19/21 13:16 Estimated GFR > 60 ml/min 12/19/21 13:16 BUN/Creatinine Ratio 26 % 12/19/21 13:16 Glucose 99 mg/dL (75-100) 12/19/21 13:16 POC Glucose 158 mg/dL (70-105) H 12/25/21 19:39 Hemoglobin A1c 6.0 % (4-6) 12/17/21 00:54 Calcium 10.5 mg/dL (8.4-10.2) H 12/19/21 13:16 Total Bilirubin 0.40 mg/dL (0.1-1.2) 12/17/21 00:54 AST 19 units/L (5-40) 12/17/21 00:54 ALT 24 units/L (7-56) 12/17/21 00:54 Alkaline Phosphatase 127 units/L (35-129) 12/17/21 00:54 Total Protein 6.8 g/dL (6.3-8.2) 12/17/21 00:54 Albumin 4.3 g/dL (3.9-5) 12/17/21 00:54 Albumin/Globulin Ratio 1.7 % 12/17/21 00:54 Triglycerides 59 mg/dL (2-149) 12/17/21 00:54 Cholesterol 106 mg/dL (50-199) 12/17/21 00:54 LDL Cholesterol Direct 53 mg/dL (50-130) 12/17/21 00:54 HDL Cholesterol 46 mg/dL (40-59) 12/17/21 00:54 Cholesterol/HDL Ratio 2.30 % 12/17/21 00:54 TSH 1.010 mlU/mL (0.270-4.200) 12/17/21 00:54 Valproic Acid 23.7 ug/mL (50-100) L 12/25/21 17:05 Hep Bs Antigen Non-reactive (Negative) 12/17/21 00:54 Hep B Core IgM Ab Non-reactive (NonReactive) 12/17/21 00:54 Hepatitis C Antibody Non-reactive (NonReactive) 12/17/21 00:54 Last Vital Signs Temp 97.9 F 12/26/21 09:06 Pulse 97 H 12/26/21 09:06 Resp 18 12/26/21 09:06 BP 144/77 12/26/21 09:06 Pulse Ox 99 12/26/21 09:06
[2021-12-26] MEDS: SUCRALFATE 1 GM TAB PO SCH ×4 (09:20→21:03)
[2021-12-26] MEDS: RIVAROXABAN 20 MG TAB PO SCH (17:47)
[2021-12-26] MEDS: traZODone 100 MG TAB PO SCH (21:03)
[2021-12-27] MEDS: ARFORMOTEROL 15 MCG/2 ML NEBU IH SCH (08:30)
[2021-12-27] MEDS: BUDESONIDE 0.5 MG/2 ML NEBU IH SCH (08:30)
[2021-12-27 09:24] VITALS: BP 98/61
[2021-12-27] MEDS: DIVALPROEX DR 500 MG TAB PO SCH (11:16)
[2021-12-27] MEDS: FERROUS SULFATE 325 MG TAB PO SCH (11:16)
[2021-12-27] MEDS: FLUTICASONE PROPIONATE NASAL SPRAY 16 GM NS SCH (11:16)
[2021-12-27] MEDS: metFORMIN 500 MG TAB PO SCH (11:17)
[2021-12-27] MEDS: CYANOCOBALAMIN (VIT B-12) 1000 MCG TAB PO SCH (11:17)
[2021-12-27] MEDS: FUROSEMIDE 40 MG TAB PO SCH (11:18)
[2021-12-27] MEDS: PANTOPRAZOLE 40 MG TAB PO SCH (11:18)
[2021-12-27] MEDS: FLUoxetine 20 MG CAP PO SCH (11:18)
[2021-12-27] MEDS: METOPROLOL TARTRATE 50 MG TAB PO SCH (11:18)
[2021-12-27] MEDS: B COMPLEX W/VITAMIN C TAB PO SCH (11:19)
[2021-12-27] MEDS: SUCRALFATE 1 GM TAB PO SCH (11:19)
[2021-12-27] MEDS: MULTIVITAMINS,THER W-MINERALS TAB PO SCH (11:19)
[2021-12-27] MEDS: CETIRIZINE 10 MG TAB PO SCH (11:19)
[2021-12-27] MEDS: CALCIUM CARBONATE 648 MG TAB PO SCH (11:20)
[2021-12-27] MEDS: CHOLECALCIFEROL (VIT D3) 400 UNIT TAB PO SCH (11:20)
[2021-12-27] MEDS: TELMISARTAN 80 MG PO SCH (11:21)
[2021-12-27] MEDS: dilTIAZem CD 120 MG CAP PO SCH (11:21)
== END 2021-12-27 12:45 | disposition home or self-care (01) | DRG 885 ==
LOC: 3A 18:04 → UNDOADMIN 18:04 → 5A 21:54
PROVIDERS: ADMIT Psychiatry & Neurology Psychiatry; ATTEND Psychiatry & Neurology Psychiatry
DX: F22 Delusional disorders (principal); E87.1 Hypo-osmolality and hyponatremia; E87.2 Acidosis; I42.9 Cardiomyopathy, unspecified; K57.92 Diverticulitis of intestine, part unspecified, without perforation or abscess without bleeding; I48.20 Chronic atrial fibrillation, unspecified; F01.51 Vascular dementia, unspecified severity, with behavioral disturbance; I48.11 Longstanding persistent atrial fibrillation; I50.32 Chronic diastolic (congestive) heart failure; I11.0 Hypertensive heart disease with heart failure; E87.5 Hyperkalemia; F31.9 Bipolar disorder, unspecified; I25.10 Atherosclerotic heart disease of native coronary artery without angina pectoris; I48.91 Unspecified atrial fibrillation; E78.5 Hyperlipidemia, unspecified; G47.30 Sleep apnea, unspecified; K63.5 Polyp of colon; D50.9 Iron deficiency anemia, unspecified; F41.1 Generalized anxiety disorder; K21.9 Gastro-esophageal reflux disease without esophagitis; E03.9 Hypothyroidism, unspecified; E11.9 Type 2 diabetes mellitus without complications; K76.0 Fatty (change of) liver, not elsewhere classified; I67.2 Cerebral atherosclerosis; J44.9 Chronic obstructive pulmonary disease, unspecified; Z88.8 Allergy status to other drugs, medicaments and biological substances; Z86.73 Personal history of transient ischemic attack (TIA), and cerebral infarction without residual deficits; Z83.3 Family history of diabetes mellitus; Z82.3 Family history of stroke; Z82.49 Family history of ischemic heart disease and other diseases of the circulatory system
CPT/HCPCS: 36415; 80048; 80053; 80061; 80074; 80164; 82962; 83036; 84443; 85025; 85027; 94640; G0378; J3486